=== PATIENT | female | born 1975 | race Caucasian/White ===

== ENCOUNTER → 2017-01-30 | Outpatient (CLI) | payer OTHER ==
[2017-01-30 11:59] VITALS: BP 121/74; PULSE 76; RESP 15; TEMP 98.3; BMI 48.9
[2017-01-30 13:13] LABS: HCT 35.8 % (34.0-46.0); HGB 11.5 gm/dL (11.4-16.0); Hypochromasia Slight; MCH 26.3 pg (25.0-35.0); MCHC 32.1 g/dL (31.0-37.0); MCV 82.1 fL (80.0-100.0); Platelet Count 296 k/uL (150-450); RBC 4.36 m/uL (3.80-5.40); RDW 15.2 % (11.5-15.5); WBC 8.6 k/uL (3.8-10.6)
[2017-01-30 13:53] LABS: ALT 32 U/L (9-52); AST 16 U/L (14-36); Albumin 3.8 g/dL (3.5-5.0); Alkaline Phosphatase 73 U/L (38-126); Anion Gap 8 mmol/L; Blood Urea Nitrogen 10 mg/dL (7-17); Calcium 9.3 mg/dL (8.4-10.2); Carbon Dioxide 25 mmol/L (22-30); Chloride 104 mmol/L (98-107); Cholesterol 206 mg/dL (<200); Glucose 89 mg/dL (74-99); HDL Cholesterol 32 mg/dL (40-60); LDL Cholesterol,Calculated 144 mg/dL (0-99); Potassium 4.6 mmol/L (3.5-5.1); Sodium 137 mmol/L (137-145); Total Bilirubin 0.5 mg/dL (0.2-1.3); Triglycerides 148 mg/dL (<150)
[2017-01-30 18:36] LABS: Iron Saturation 9.09 (12.00-45.00)
[2017-01-30 18:49] LABS: Folate, Serum 7.9 ng/mL
[2017-01-30 22:29] LABS: Hemoglobin A1C 5.8 % (4.0-6.0)
[2017-02-03 06:41] LABS: Anabasine Urine <2.0 ng/mL (<2.0)
--- NOTE | 2017-03-18 05:54 | P.HPBAR ---
Bariatric H&P - History & Physicial H&P Date: 01/30/17 History & Physicial: Visit/CC: RnY consult attended seminar 09/07/16 Patient initial contact: 09/07/2016 Initial weight: 115.666 kg Initial weight in pounds: 255.00 Height: 5 ft 0.5 in Initial BMI: 48.9 Last weight: Current weight: 115.666 kg Current weight in pounds: 255.00 Current BMI: 48.9 [place] body weight (based on NIH guidelines): 46.493 kg Excess body weight loss: 0.0% The patient is a 41 year-old F who presents for Bariatric Assessment. DATE OF SERVICE: 01/30/2017 REASON FOR CONSULTATION: Initial bariatric evaluation. HISTORY OF PRESENT ILLNESS: Sofia Harrington is a 41-year-old female who comes in with long-standing morbid obesity. She reports developing osteoarthritis of the bilateral hips, knees, lower back, hypertension including obstructive sleep apnea as a result of her obesity. She has undergone multiple diets in the past with a past weight loss of 30 pounds. In the last over 6 months, she has been doing medically supervised weight loss already losing 46 pounds with a combination Adipex and exercise. She is looking into the gastric bypass. No family history of stomach or esophageal cancer. No reports of food ALLERGIES. She denies lupus or multiple sclerosis in his family or himself. No reports of Crohn's disease or ulcer colitis. She has a strong family history of obesity. Now she presents for his initial assessment. At height of 5 feet 0.5 inches, her ideal body weight is 127 pounds. She comes in with 254 pounds. Her highest weight was 300 pounds in the last 6 months. Body mass index is down from 57.7 to 49.0. She is 127 pounds overweight. PAST MEDICAL HISTORY: 1. Morbid obesity. 2. Body mass index of 57.7. 3. Osteoarthritis of the knees. 4. Osteoarthritis of the hips. 5. Osteoarthritis of the lower back. 6. Obstructive sleep apnea. 7. Hypertensive heart disease. 8. Asthma. 9. Migraines. PAST SURGICAL HISTORY: 1. Cholecystectomy. 2. Appendectomy. 3. Upper endoscopy. 4. C-sections x3. HOME MEDICATIONS: 1. Excedrin. 2. Albuterol inhaler. ALLERGIES: Penicillin. SOCIAL HISTORY: No active tobacco use. FAMILY HISTORY: No family history of ulcerative colitis disease or Crohn's disease. Family history of morbid obesity. No lupus in the family. No reports of stomach or esophageal cancer. Family history of diabetes type 2. REVIEW OF ORGAN SYSTEMS: CONSTITUTIONAL: At height of 5 feet 0.5 inches, her ideal body weight is 127 pounds. She comes in with 254 pounds. Her highest weight was 300 pounds in the last 6 months. Has body mass index is down from 57.7 to 49.0. She is 127 pounds overweight. HEENT: Denies any active troubles with vision or hearing. No troubles with swallowing. ENDOCRINE: No diabetes. No hypothyroidism. CARDIOVASCULAR: No reports of palpitations or heart attacks or chest pain. RESPIRATORY: Has daytime somnolence. No asthma. GI: Denies any bright red blood per rectum. No diarrhea or constipation. MUSCULOSKELETAL: Has lower back pain and joint pain. Has osteoarthritis of the knees. NEURO: No headaches. No seizure disorders. PSYCH: No depression or suicidal ideation. RHEUMATOLOGIC: No lupus. No rheumatoid arthritis. HEMATOLOGIC: Denies any abnormal bleeding or bruising. No personal history of DVTs. SKIN: No rash. No skin cancer. PHYSICAL EXAM: VITAL SIGNS: Height 5 foot 0.5 inches, weight 254 pounds. BMI 49.0 Vital Signs Temp 98.3 F 01/30/17 11:30 Pulse 76 01/30/17 11:30 Resp 15 01/30/17 11:30 BP 121/74 01/30/17 11:30 Pulse Ox GENERAL: Well-developed in no acute distress. HEENT: No scleral icterus. Extraocular movements grossly intact. Hears conversational speech. No nasal drainage. NECK: Supple without lymphadenopathy. CHEST: Nonlabored respirations with equal bilateral excursions. CARDIOVASCULAR: Regular rate and regular rhythm. Distal 2+ pulses. ABDOMEN: Obese, soft, nontender, nondistended. MUSCULOSKELETAL: No clubbing, cyanosis. Gross strength 5/5 distal lower extremities. NEURO: No focal or lateralizing signs. Cranial nerves 2 through 12 grossly within normal limits. PSYCH: Appropriate affect. Alert and oriented to person, place and time. SKIN: Good skin turgor. Well perfused. ASSESSMENT: 1. Morbid obesity. 2. Body mass index of 57.7. 3. Osteoarthritis of the knees. 4. Osteoarthritis of the hips. 5. Osteoarthritis of the lower back. 6. Obstructive sleep apnea. 7. Hypertensive heart disease. 8. Asthma. 9. Migraines. 10. Hypercholesterolemia. 11. Vitamin D deficiency. PLAN: 1. Surgical options including a band, gastric bypass, sleeve gastrectomy were described in detail. Alternatives such as gastric balloon including duodenal switch were described. 2. The [place] bariatric surgical collaborative data and outcomes calculator were described with surgical options. 3. Recommend a bariatric metabolic panel to evaluate for micro- including macronutrient deficiencies. 4. For history of daytime somnolence, recommend evaluation and treatment for sleep apnea. 5. Dietary surveillance and counseling was reviewed. She is maintaining over 60 g protein daily. 6. She has completed upper endoscopy with findings of erosive esophagitis. 7. Recommend medical risk assessment. 8. Psych assessment per insurance guidelines. 9. Recommend 12-lead EKG with personal history of hypertensive heart disease. 10. She has done extremely well under medically supervised weight loss losing over 10% of her initial weight of 300 pounds. Percent excess weight loss is 26% . Thank you for this consultation. LABS: Laboratory Last Values WBC 8.6 k/uL (3.8-10.6) 01/30/17 12:31 RBC 4.36 m/uL (3.80-5.40) 01/30/17 12:31 Hgb 11.5 gm/dL (11.4-16.0) 01/30/17 12:31 Hct 35.8 % (34.0-46.0) 01/30/17 12:31 MCV 82.1 fL (80.0-100.0) 01/30/17 12:31 MCH 26.3 pg (25.0-35.0) 01/30/17 12:31 MCHC 32.1 g/dL (31.0-37.0) 01/30/17 12:31 RDW 15.2 % (11.5-15.5) 01/30/17 12:31 Plt Count 296 k/uL (150-450) 01/30/17 12:31 Hypochromasia Slight 01/30/17 12:31 Sodium 137 mmol/L (137-145) 01/30/17 12:31 Potassium 4.6 mmol/L (3.5-5.1) 01/30/17 12:31 Chloride 104 mmol/L (98-107) 01/30/17 12:31 Carbon Dioxide 25 mmol/L (22-30) 01/30/17 12:31 Anion Gap 8 mmol/L 01/30/17 12:31 BUN 10 mg/dL (7-17) 01/30/17 12:31 Creatinine 0.60 mg/dL (0.52-1.04) 01/30/17 12:31 Est GFR (MDRD) Af Amer >60 (>60 ml/min/1.73 sqM) 01/30/17 12:31 Est GFR (MDRD) Non-Af >60 (>60 ml/min/1.73 sqM) 01/30/17 12:31 Glucose 89 mg/dL (74-99) 01/30/17 12:[address] Glu mg/dL 120 01/30/17 12:31 Hemoglobin A1c 5.8 % (4.0-6.0) 01/30/17 12:31 Calcium 9.3 mg/dL (8.4-10.2) 01/30/17 12:31 Iron 31 ug/dL (50-170) L 01/30/17 12:31 TIBC 341 ug/dL (228-460) 01/30/17 12:31 Iron Saturation 9.09 (12.00-45.00) L 01/30/17 12:31 Ferritin 49.3 ng/mL (10.0-291.0) 01/30/17 12:31 Total Bilirubin 0.5 mg/dL (0.2-1.3) 01/30/17 12:31 AST 16 U/L (14-36) 01/30/17 12:31 ALT 32 U/L (9-52) 01/30/17 12:31 Alkaline Phosphatase 73 U/L (38-126) 01/30/17 12:31 Total Protein 7.0 g/dL (6.3-8.2) 01/30/17 12:31 Albumin 3.8 g/dL (3.5-5.0) 01/30/17 12:31 Triglycerides 148 mg/dL (<150) 01/30/17 12:31 Cholesterol 206 mg/dL (<200) H 01/30/17 12:31 LDL Cholesterol, Calc 144 mg/dL (0-99) H 01/30/17 12:31 HDL Cholesterol 32 mg/dL (40-60) L 01/30/17 12:31 Vitamin B1 55 ug/L (38-122) 01/30/17 12:31 Vitamin B12 471.0 pg/mL (200.0-944.0) 01/30/17 12:31 Vitamin D 25-Hydroxy 7.0 ng/mL (30.0-100.0) L 01/30/17 12:31 Folate 7.9 ng/mL 01/30/17 12:31 TSH 1.830 mIU/L (0.465-4.680) 01/30/17 12:31 Urine Cotinine <5.0 ng/mL (<5.0) 01/30/17 12:31 Urine Nicotine <2.0 ng/mL (<2.0) 01/30/17 12:31 Urine Anabasine <2.0 ng/mL (<2.0) 01/30/17 12:31 EKG EKG PERFORMED 01/30/17 12:31 Miscellaneous Test HEROIN 01/30/17 12:31 Misc Test Result See Comment 01/30/17 12:31 Cholesterol elevated. LDL elevated. HDL low. Vitamin D deficient. Past Medical History Past Medical History: Asthma, Sleep Apnea/CPAP/BIPAP Additional Past Medical History / Comment(s): Uses C-Pap, Poly Cystic Ovarian Syndrome, Migraine Headaches 4-5x/week History of Any Multi-Drug Resistant Organisms: None Reported Past Surgical History: Appendectomy, Section, Cholecystectomy Additional Past Surgical History / Comment(s): x3: 1999, 2002, 2009; Cholecystectomy 1999; Appendix 2002; R wrist Ganglion Cyst 2013; Bilateral Carpal Tunnel 2013; Past Anesthesia/Blood Transfusion Reactions: No Reported Reaction Past Psychological History: No Psychological Hx Reported Smoking Status: Never smoker Past Alcohol Use History: Rare Past Drug Use History: None Reported - Past Family History Father Family Medical History: Congestive Heart Failure (CHF), Coronary Artery Disease (CAD), Diabetes Mellitus Additional Family Medical History / Comment(s): at age 66 from heart failure Mother Family Medical History: Coronary Artery Disease (CAD), Diabetes Mellitus, Vascular Disorder Additional Family Medical History / Comment(s): Type II DM, Surgical - Exam Vital Signs Temp Pulse Resp BP 98.3 F 76 15 121/74 01/30/17 11:30 01/30/17 11:30 01/30/17 11:30 01/30/17 11:30 Results - Labs 01/30/17 12:31 01/30/17 12:31 Bariatric Checklist Checklist: Plan: Checklist: EGD: 1. Hiatal hernia: 2. H. Pylori: HgbA1c: Vitamin D: Smoking: Never smoker Primary care physician referral: Antoine RussellValle) Psychiatry clearance: Cardiology clearance: Sleep study: Diet journal: VTE risk score: VTE risk level: Rehab needs at discharge:
== END | disposition home or self-care (01) ==
LOC: BARWHC3 10:07
PROVIDERS: ATTEND Surgery Plastic and Reconstructive Surgery
DX: E66.01 Morbid (severe) obesity due to excess calories (principal); M17.0 Bilateral primary osteoarthritis of knee; M47.9 Spondylosis, unspecified; M16.0 Bilateral primary osteoarthritis of hip; G47.33 Obstructive sleep apnea (adult) (pediatric); I11.9 Hypertensive heart disease without heart failure; J45.909 Unspecified asthma, uncomplicated; G43.909 Migraine, unspecified, not intractable, without status migrainosus; E78.00 Pure hypercholesterolemia, unspecified; E55.9 Vitamin D deficiency, unspecified; E89.1 Postprocedural hypoinsulinemia; D50.8 Other iron deficiency anemias; E44.0 Moderate protein-calorie malnutrition; F10.10 Alcohol abuse, uncomplicated; Z90.49 Acquired absence of other specified parts of digestive tract; Z98.890 Other specified postprocedural states; Z79.51 Long term (current) use of inhaled steroids; Z79.899 Other long term (current) drug therapy; Z68.43 Body mass index [BMI] 50.0-59.9, adult; Z88.0 Allergy status to penicillin; Z99.89 Dependence on other enabling machines and devices
CPT/HCPCS: 84425; 80061; 80053; 82607; 82728; 82746; 83540; 83550; 84443; 85027; 82306; 83036; 93005; G0480; G0463; 80307; 80323; 80356; 99211

== ENCOUNTER → 2017-02-24 | Outpatient (CLI) | payer OTHER ==
[2017-02-24 16:09] VITALS: BMI 48.3
== END | disposition home or self-care (01) ==
LOC: BARWHC3 09:18
PROVIDERS: ATTEND Surgery Plastic and Reconstructive Surgery
DX: E66.01 Morbid (severe) obesity due to excess calories (principal); Z68.42 Body mass index [BMI] 45.0-49.9, adult
CPT/HCPCS: 97804

== ENCOUNTER → 2017-04-30 | Outpatient (CLI) | payer OTHER ==
[2017-04-30 17:40] VITALS: BP 107/74; PULSE 67; RESP 16; TEMP 98; BMI 41.8
--- NOTE | 2017-06-13 11:45 | P.PN ---
Subjective Progress Note Date: 04/30/17 DATE OF SERVICE: 04/30/2017 CHIEF COMPLAINT: Bariatric evaluation HISTORY OF PRESENT ILLNESS: Sofia Harrington is a 42-year-old female who initially came [facility] January 2017. She had been undergoing medical supervised weight loss for over 9+ months. Her highest weight was 304 pounds. At height of 5 feet 0.5 inches, her ideal body weight is 127 pounds. She comes in 250 pounds. She has lost 4 pounds in 3 months. Total weight loss due to medical supervised diet is 54 pounds. Percent excess weight loss is 30%. Body mass index is down from 58.5 to 48.2. She is 123 pounds overweight. She is seeking the gastric bypass. She has developed hypertension, osteoarthritis including sleep apnea as a result of her obesity. PAST MEDICAL HISTORY: 1. Morbid obesity. 2. Body mass index of 58.5 3. Osteoarthritis of the knees. 4. Osteoarthritis of the hips. 5. Osteoarthritis of the lower back. 6. Obstructive sleep apnea. 7. Hypertensive heart disease. 8. Asthma. 9. Migraines. PAST SURGICAL HISTORY: 1. Cholecystectomy. 2. Appendectomy. 3. Upper endoscopy. 4. C-sections x3. HOME MEDICATIONS: 1. Excedrin. 2. Albuterol inhaler. ALLERGIES: Penicillin. SOCIAL HISTORY: No active tobacco use. FAMILY HISTORY: No family history of ulcerative colitis disease or Crohn's disease. Family history of morbid obesity. No lupus in the family. No reports of stomach or esophageal cancer. Family history of diabetes type 2. REVIEW OF ORGAN SYSTEMS: CONSTITUTIONAL: Her highest weight was 304 pounds. At height of 5 feet 0.5 inches, her ideal body weight is 127 pounds. She comes in 250 pounds. She has lost 4 pounds in 3 months. Total weight loss due to medical supervised diet is 54 pounds. Percent excess weight loss is 30%. Body mass index is down from 58.5 to 48.2. She is 123 pounds overweight. HEENT: Denies any active troubles with vision or hearing. No troubles with swallowing. ENDOCRINE: No diabetes. No hypothyroidism. CARDIOVASCULAR: No reports of palpitations or heart attacks or chest pain. RESPIRATORY: Has daytime somnolence. No asthma. GI: Denies any bright red blood per rectum. No diarrhea or constipation. MUSCULOSKELETAL: Has lower back pain and joint pain. Has osteoarthritis of the knees. NEURO: No headaches. No seizure disorders. PSYCH: No depression or suicidal ideation. RHEUMATOLOGIC: No lupus. No rheumatoid arthritis. HEMATOLOGIC: Denies any abnormal bleeding or bruising. No personal history of DVTs. SKIN: No rash. No skin cancer. PHYSICAL EXAM: VITAL SIGNS: Height 5 foot 0.5 inches, weight 250 pounds. BMI 48.2 Vital Signs Temp 98.0 F 04/30/17 17:37 Pulse 67 04/30/17 17:37 Resp 16 04/30/17 17:37 BP 107/74 04/30/17 17:37 Pulse Ox GENERAL: Well-developed in no acute distress. HEENT: No scleral icterus. Extraocular movements grossly intact. Hears conversational speech. No nasal drainage. NECK: Supple without lymphadenopathy. CHEST: Nonlabored respirations with equal bilateral excursions. CARDIOVASCULAR: Regular rate and regular rhythm. Distal 2+ pulses. ABDOMEN: Obese, soft, nontender, nondistended. MUSCULOSKELETAL: No clubbing, cyanosis. Gross strength 5/5 distal lower extremities. NEURO: No focal or lateralizing signs. Cranial nerves 2 through 12 grossly within normal limits. PSYCH: Appropriate affect. Alert and oriented to person, place and time. SKIN: Good skin turgor. Well perfused. LABS: Laboratory Last Values WBC 8.6 k/uL (3.8-10.6) 01/30/17 12:31 RBC 4.36 m/uL (3.80-5.40) 01/30/17 12:31 Hgb 11.5 gm/dL (11.4-16.0) 01/30/17 12:31 Hct 35.8 % (34.0-46.0) 01/30/17 12:31 MCV 82.1 fL (80.0-100.0) 01/30/17 12:31 MCH 26.3 pg (25.0-35.0) 01/30/17 12:31 MCHC 32.1 g/dL (31.0-37.0) 01/30/17 12:31 RDW 15.2 % (11.5-15.5) 01/30/17 12:31 Plt Count 296 k/uL (150-450) 01/30/17 12:31 Hypochromasia Slight 01/30/17 12:31 Sodium 137 mmol/L (137-145) 01/30/17 12:31 Potassium 4.6 mmol/L (3.5-5.1) 01/30/17 12:31 Chloride 104 mmol/L (98-107) 01/30/17 12:31 Carbon Dioxide 25 mmol/L (22-30) 01/30/17 12:31 Anion Gap 8 mmol/L 01/30/17 12:31 BUN 10 mg/dL (7-17) 01/30/17 12:31 Creatinine 0.60 mg/dL (0.52-1.04) 01/30/17 12:31 Est GFR (MDRD) Af Amer >60 (>60 ml/min/1.73 sqM) 01/30/17 12:31 Est GFR (MDRD) Non-Af >60 (>60 ml/min/1.73 sqM) 01/30/17 12:31 Glucose 89 mg/dL (74-99) 01/30/17 12:[address] Glu mg/dL 120 01/30/17 12:31 Hemoglobin A1c 5.8 % (4.0-6.0) 01/30/17 12:31 Calcium 9.3 mg/dL (8.4-10.2) 01/30/17 12:31 Iron 31 ug/dL (50-170) L 01/30/17 12:31 TIBC 341 ug/dL (228-460) 01/30/17 12:31 Iron Saturation 9.09 (12.00-45.00) L 01/30/17 12:31 Ferritin 49.3 ng/mL (10.0-291.0) 01/30/17 12:31 Total Bilirubin 0.5 mg/dL (0.2-1.3) 01/30/17 12:31 AST 16 U/L (14-36) 01/30/17 12:31 ALT 32 U/L (9-52) 01/30/17 12:31 Alkaline Phosphatase 73 U/L (38-126) 01/30/17 12:31 Total Protein 7.0 g/dL (6.3-8.2) 01/30/17 12:31 Albumin 3.8 g/dL (3.5-5.0) 01/30/17 12:31 Triglycerides 148 mg/dL (<150) 01/30/17 12:31 Cholesterol 206 mg/dL (<200) H 01/30/17 12:31 LDL Cholesterol, Calc 144 mg/dL (0-99) H 01/30/17 12:31 HDL Cholesterol 32 mg/dL (40-60) L 01/30/17 12:31 Vitamin B1 55 ug/L (38-122) 01/30/17 12:31 Vitamin B12 471.0 pg/mL (200.0-944.0) 01/30/17 12:31 Vitamin D 25-Hydroxy 7.0 ng/mL (30.0-100.0) L 01/30/17 12:31 Folate 7.9 ng/mL 01/30/17 12:31 TSH 1.830 mIU/L (0.465-4.680) 01/30/17 12:31 Urine Cotinine <5.0 ng/mL (<5.0) 01/30/17 12:31 Urine Nicotine <2.0 ng/mL (<2.0) 01/30/17 12:31 Urine Anabasine <2.0 ng/mL (<2.0) 01/30/17 12:31 EKG EKG PERFORMED 01/30/17 12:31 Miscellaneous Test HEROIN 01/30/17 12:31 Misc Test Result See Comment 01/30/17 12:31 Iron is low. Cholesterol elevated. LDL elevated. HDL low Vitamin D low Hemoglobin A1c elevated ASSESSMENT: 1. Morbid obesity. 2. Body mass index of 58.5 3. Osteoarthritis of the knees. 4. Osteoarthritis of the hips. 5. Osteoarthritis of the lower back. 6. Obstructive sleep apnea. 7. Hypertensive heart disease, resolved. 8. Asthma. 9. Migraines. 10. Hypercholesterolemia. 11. Vitamin D deficiency. 12. Iron deficiency anemia 13. Hypercholesterolemia 14. Dyslipidemia 15. Prediabetes 16. Metabolic syndrome PLAN: 1. Bariatric options between a sleeve, band and a Guillermina-en-Y gastric bypass were reviewed in detail. She has elected for gastric bypass. Robotic assisted approach described. 2. The [place] [facility] Data was also reviewed with benefits and risks as described. 3. An 8 page second-generation bariatric consent form was reviewed in detail including potential of bleeding, infection, leaks, adequate weight loss, nutritional deficiencies which he demonstrated understanding of the risks. 4. A 2 week high-protein low caloric 800 kcal diet described to address hepatomegaly. 5. Preoperative labs including complete metabolic panel and CBC with type and screen recommended. 6. DVT prophylaxis per [place] [facility]. 7. Antibiotic prophylaxis. 8. Inpatient hospitalization anticipated for more than 2 nights. 9. All questions and concerns were addressed with the patient. 10. Recommended dietary classes. 11. Will need iron supplement. Objective - Vital Signs Vital signs: Vital Signs Temp 98.0 F 04/30/17 17:37 Pulse 67 04/30/17 17:37 Resp 16 04/30/17 17:37 BP 107/74 04/30/17 17:37 Pulse Ox
== END | disposition home or self-care (01) ==
LOC: BARWHC3 15:42
PROVIDERS: ATTEND Surgery Plastic and Reconstructive Surgery
DX: E88.81 Metabolic syndrome and other insulin resistance (principal); E66.01 Morbid (severe) obesity due to excess calories; E78.00 Pure hypercholesterolemia, unspecified; M17.0 Bilateral primary osteoarthritis of knee; M16.0 Bilateral primary osteoarthritis of hip; M47.9 Spondylosis, unspecified; G47.33 Obstructive sleep apnea (adult) (pediatric); J45.909 Unspecified asthma, uncomplicated; G43.909 Migraine, unspecified, not intractable, without status migrainosus; E55.9 Vitamin D deficiency, unspecified; D50.9 Iron deficiency anemia, unspecified; E78.5 Hyperlipidemia, unspecified; Z90.49 Acquired absence of other specified parts of digestive tract; Z98.890 Other specified postprocedural states; Z79.51 Long term (current) use of inhaled steroids; Z68.43 Body mass index [BMI] 50.0-59.9, adult; Z79.899 Other long term (current) drug therapy; Z88.0 Allergy status to penicillin
CPT/HCPCS: 99211

== ENCOUNTER → 2017-05-22 | Outpatient (CLI) | payer OTHER ==
[2017-05-22 13:58] LABS: Basophils % (A) 0 %; Eosinophils # (A) 0.2 k/uL (0-0.7); Eosinophils % (A) 2 %; HCT 37.5 % (34.0-46.0); HGB 12.1 gm/dL (11.4-16.0); Lymphocytes % (A) 40 %; MCHC 32.3 g/dL (31.0-37.0); MCV 83.6 fL (80.0-100.0); Mean Platelet Volume 8.6; Monocytes # (A) 0.2 k/uL (0-1.0); Monocytes % (A) 3 %; Neutrophils % (A) 52 %; Platelet Count 271 k/uL (150-450); RBC 4.48 m/uL (3.80-5.40); WBC 7.6 k/uL (3.8-10.6)
[2017-05-22 14:09] LABS: ALT 22 U/L (9-52); AST 18 U/L (14-36); Alkaline Phosphatase 66 U/L (38-126); Anion Gap 15 mmol/L; Blood Urea Nitrogen 9 mg/dL (7-17); Calcium 9.4 mg/dL (8.4-10.2); Carbon Dioxide 20 mmol/L (22-30); Chloride 106 mmol/L (98-107); Glucose 75 mg/dL (74-99); Potassium 4.4 mmol/L (3.5-5.1); Sodium 141 mmol/L (137-145); Total Bilirubin 0.6 mg/dL (0.2-1.3); Total Protein 7.3 g/dL (6.3-8.2)
== END | disposition home or self-care (01) ==
LOC: LABPAT 12:54
PROVIDERS: ATTEND Surgery Plastic and Reconstructive Surgery
DX: Z01.812 Encounter for preprocedural laboratory examination (principal); I10 Essential (primary) hypertension; E86.0 Dehydration
CPT/HCPCS: 36415; 80053; 85025

== ENCOUNTER 2017-05-26 05:32 | Inpatient (IN) | payer OTHER ==
[~2017-05-26 05:32] MED LIST: ACETAMINOPHEN IV (For NPO) 1,000 MG in EMPTY BAG 1 BAG IVPB ONE; CHLORHEXIDINE GLUCONATE 15 ML CUP MUCOUS MEM ONE; DEXAMETHASONE SOD PHOSPHATE 10 MG/ML 1 ML VIAL IV ONE; ENOXAPARIN 40 MG/0.4 ML SYRINGE SQ STA; MIDAZOLAM 2 MG/2 ML VIAL IV PRN; ONDANSETRON 4 MG/2 ML VIAL IVP ONE; PANTOPRAZOLE 40 MG/10 ML VIAL IV STA; SCOPOLAMINE 1.5MG/72HR PATCH TRANSDERM SCH; ceFAZolin IN SWFI 2 GM/20 ML SYRINGE IVP ONE; fentaNYL (PF) 50 MCG/ML 2 ML AMP IV PRN
[2017-05-26] MEDS: LACTATED RINGERS 1,000 ML IV SCH (06:35)
[2017-05-26] MEDS ORDERED: BUPIVACAINE (PF) 0.25% 30 ML VIAL SQ ONE (07:31)
--- NOTE | 2017-05-26 07:40 | P.GSHP ---
History of Present Illness H&P Date: 05/26/17 DATE OF SERVICE: 05/26/2017 CHIEF COMPLAINT: Morbid obesity HISTORY OF PRESENT ILLNESS: Sofia Harrington is a 42-year-old female who comes in with long-standing morbid obesity. She reports developing osteoarthritis of the bilateral hips, knees, lower back, hypertension including obstructive sleep apnea as a result of her obesity. She has undergone multiple diets in the past with a past weight loss of 30 pounds. In the last over 6 months, she has been doing medically supervised weight loss already losing 46 pounds with a combination Adipex and exercise. She is looking into the gastric bypass. No family history of stomach or esophageal cancer. No reports of food ALLERGIES. She denies lupus or multiple sclerosis in his family or himself. No reports of Crohn's disease or ulcer colitis. She has a strong family history of obesity. At height of 5 feet 0.5 inches, her ideal body weight is 127 pounds. She comes in with 254 pounds. Her highest weight was 300 pounds in the last 6 months. Body mass index is down from 57.7 to 45. PAST MEDICAL HISTORY: 1. Morbid obesity. 2. Body mass index of 57.7. 3. Osteoarthritis of the knees. 4. Osteoarthritis of the hips. 5. Osteoarthritis of the lower back. 6. Obstructive sleep apnea. 7. Hypertensive heart disease. 8. Asthma. 9. Migraines. PAST SURGICAL HISTORY: 1. Cholecystectomy. 2. Appendectomy. 3. Upper endoscopy. 4. C-sections x3. HOME MEDICATIONS: 1. Excedrin. 2. Albuterol inhaler. ALLERGIES: Penicillin. SOCIAL HISTORY: No active tobacco use. FAMILY HISTORY: No family history of ulcerative colitis disease or Crohn's disease. Family history of morbid obesity. No lupus in the family. No reports of stomach or esophageal cancer. Family history of diabetes type 2. REVIEW OF ORGAN SYSTEMS: CONSTITUTIONAL: At height of 5 feet 0.5 inches, her ideal body weight is 127 pounds. She comes in with 254 pounds. Her highest weight was 300 pounds in the last 6 months. Has body mass index is down from 57.7 to 49.0. She is 127 pounds overweight. She has lost another 15 pounds in 4 months. HEENT: Denies any active troubles with vision or hearing. No troubles with swallowing. ENDOCRINE: No diabetes. No hypothyroidism. CARDIOVASCULAR: No reports of palpitations or heart attacks or chest pain. RESPIRATORY: Has daytime somnolence. No asthma. GI: Denies any bright red blood per rectum. No diarrhea or constipation. MUSCULOSKELETAL: Has lower back pain and joint pain. Has osteoarthritis of the knees. NEURO: No headaches. No seizure disorders. PSYCH: No depression or suicidal ideation. RHEUMATOLOGIC: No lupus. No rheumatoid arthritis. HEMATOLOGIC: Denies any abnormal bleeding or bruising. No personal history of DVTs. SKIN: No rash. No skin cancer. PHYSICAL EXAM: VITAL SIGNS: Height 5 foot 0.5 inches, weight 239 pounds. BMI 49.0 GENERAL: Well-developed in no acute distress. HEENT: No scleral icterus. Extraocular movements grossly intact. Hears conversational speech. No nasal drainage. NECK: Supple without lymphadenopathy. CHEST: Nonlabored respirations with equal bilateral excursions. CARDIOVASCULAR: Regular rate and regular rhythm. Distal 2+ pulses. ABDOMEN: Obese, soft, nontender, nondistended. MUSCULOSKELETAL: No clubbing, cyanosis. Gross strength 5/5 distal lower extremities. NEURO: No focal or lateralizing signs. Cranial nerves 2 through 12 grossly within normal limits. PSYCH: Appropriate affect. Alert and oriented to person, place and time. SKIN: Good skin turgor. Well perfused. ASSESSMENT: 1. Morbid obesity. 2. Body mass index of 57.7, initial 3. Osteoarthritis of the knees. 4. Osteoarthritis of the hips. 5. Osteoarthritis of the lower back. 6. Obstructive sleep apnea. 7. Hypertensive heart disease. 8. Asthma. 9. Migraines. 10. Hypercholesterolemia. 11. Vitamin D deficiency. PLAN: 1. Surgical options including a band, gastric bypass, sleeve gastrectomy were described in detail. Alternatives such as gastric balloon including duodenal switch were described. She has selected for a gastric bypass. Robotic approach reviewed 2. DVT prophylaxis. 3. Antibiotic prophylaxis. 4. Inpatient hospitalization more than 2 nights. Past Medical History Past Medical History: Asthma, Sleep Apnea/CPAP/BIPAP Additional Past Medical History / Comment(s): Uses C-Pap, Poly Cystic Ovarian Syndrome, Migraine Headaches 4-5x/week, H-Pylori Positive per EGD specimen results performed in [place] by Dr. Komal Ceballos (02/24/17 Medications e- scribed to [facility] to treat) History of Any Multi-Drug Resistant Organisms: None Reported Past Surgical History: Appendectomy, Section, Cholecystectomy Additional Past Surgical History / Comment(s): x3: 1999, 2002, 2009; Cholecystectomy 1999; Appendix 2002; R wrist Ganglion Cyst 2013; Bilateral Carpal Tunnel 2013; Past Anesthesia/Blood Transfusion Reactions: No Reported Reaction Smoking Status: Never smoker - Past Family History Father Family Medical History: Congestive Heart Failure (CHF), Coronary Artery Disease (CAD), Diabetes Mellitus Additional Family Medical History / Comment(s): at age 66 from heart failure Mother Family Medical History: Coronary Artery Disease (CAD), Diabetes Mellitus, Vascular Disorder Additional Family Medical History / Comment(s): Type II DM, Medications and Allergies Home Medications Medication Instructions Recorded Confirmed Type Albuterol Inhaler [Ventolin Hfa 1 - 2 puff INHALATION Q6HR PRN 01/30/17 History Inhaler] Aspirin/Acetaminophen/Caffeine 1 each PO Q12HR PRN 01/30/17 05/26/17 History [Excedrin Migraine Caplet] Butalb/Acetaminophen/Caffeine 1 cap PO Q4HR PRN 01/30/17 05/26/17 History [Fioricet 50-300-40 mg Capsule] Omeprazole 40 mg PO DAILY #14 capsule. 02/24/17 05/26/17 Rx Allergies Allergy/AdvReac Type Severity Reaction Status Date / Time Penicillins Allergy Unknown Verified 05/26/17 06:07 Childhood hydromorphone [From Dilaudid] AdvReac Confusion Verified 05/26/17 06:07 Surgical - Exam Vital Signs Temp Pulse Resp BP Pulse Ox 98.2 F 88 16 114/72 99 05/26/17 06:04 05/26/17 06:04 05/26/17 06:04 05/26/17 06:04 05/26/17 06:04
[2017-05-26] MEDS ORDERED: GLYCOPYRROLATE 0.2 MG/ML 2 ML VIAL ONE (07:45)
[2017-05-26] MEDS ORDERED: ROCURONIUM BROMIDE 10 MG/ML 10 ML VIAL IV ONE (07:45)
[2017-05-26] MEDS ORDERED: MIDAZOLAM 2 MG/2 ML VIAL ONE (07:45)
[2017-05-26] MEDS ORDERED: fentaNYL (PF) 50 MCG/ML 2 ML AMP ONE (07:45)
[2017-05-26] MEDS ORDERED: SUCCINYLCHOLINE CHLORIDE 100 MG/5 ML SYR IV ONE (07:45)
[2017-05-26] MEDS ORDERED: LIDOCAINE 1% INJ 10MG/ML (20 ML MDV) ONE (07:45)
[2017-05-26] MEDS ORDERED: ROPIVACAINE 5 MG/ML 30 ML VIAL ONE (07:45)
[2017-05-26] MEDS ORDERED: NEOSTIGMINE 1 MG/ML 10 ML VIAL ONE (07:45)
[2017-05-26] MEDS ORDERED: PROPOFOL 10 MG/ML 20 ML VIAL IV ONE (07:45)
[2017-05-26] MEDS ORDERED: LACTATED RINGERS 1,000 ML IV ONE (09:36)
[2017-05-26] MEDS ORDERED: diphenhydrAMINE 50 MG/ML 1 ML VIAL IVP PRN (10:32)
[2017-05-26] MEDS ORDERED: NALOXONE 0.4 MG/ML 1 ML VIAL IV PRN (10:32)
--- NOTE | 2017-05-26 10:32 | P.OP ---
Date of Procedure: 05/26/17 Description of Procedure: SURGEON: ASHVIN MAYBERRY MD [place]: 1. NAVARRO WATSON 2. IVETTE OLMOS PREOPERATIVE DIAGNOSES: 1. Morbid obesity. 2. Body mass index of 57.7, initial 3. Osteoarthritis of the knees. 4. Osteoarthritis of the hips. 5. Osteoarthritis of the lower back. 6. Obstructive sleep apnea. 7. Hypertensive heart disease. 8. Asthma. 9. Migraines. 10. Hypercholesterolemia. 11. Vitamin D deficiency. POSTOPERATIVE DIAGNOSES: 1. Morbid obesity. 2. Body mass index of 57.7, initial 3. Osteoarthritis of the knees. 4. Osteoarthritis of the hips. 5. Osteoarthritis of the lower back. 6. Obstructive sleep apnea. 7. Hypertensive heart disease. 8. Asthma. 9. Migraines. 10. Hypercholesterolemia. 11. Vitamin D deficiency. OPERATION: 1. Robotic assisted da Melinda Xi laparoscopic Kirk-en-Y gastric bypass, 100 cm antecolic antegastric Kirk limb, with 25 mm EEA. 2. Intraoperative esophagogastrojejunoscopy. ANESTHESIA: GETA and local ESTIMATED BLOOD LOSS: 20 mL SPECIMENS REMOVED: None. COMPLICATIONS: NONE. INDICATIONS: Sofia Harrington is a 42-year-old female who comes in with long-standing morbid obesity. She reports developing osteoarthritis of the bilateral hips, knees, lower back, hypertension including obstructive sleep apnea as a result of her obesity. She has undergone multiple diets in the past with a past weight loss of 30 pounds. In the last over 6 months, she has been doing medically supervised weight loss already losing 46 pounds with a combination Adipex and exercise. She is looking into the gastric bypass. No family history of stomach or esophageal cancer. No reports of food ALLERGIES. She denies lupus or multiple sclerosis in his family or himself. No reports of Crohn's disease or ulcer colitis. She has a strong family history of obesity. At height of 5 feet 0.5 inches, her ideal body weight is 127 pounds. She comes in with 254 pounds. Her highest weight was 300 pounds in the last 6 months. Body mass index is down from 57.7 to 45. She now presents to undergo robotic assisted gastric bypass. A second-generation bariatric consent form was described in detail including the possibility of protein malnutrition, leaks, gastrojejunal stricture, venous thrombosis, need for further surgery for which she demonstrated understanding. Benefits and risks of the procedure were described at length. Informed consent was obtained. DESCRIPTION: The patient was brought into the operating room theater. She was placed supine. She had received Lovenox subcutaneously for DVT prophylaxis. Additionally she Peridex oral solution as an oral decontaminant was placed per anesthesia. After general induction, the abdomen was prepped and draped in standard sterile fashion. Ioban draping was placed along the abdomen. A robotic da Melinda Xi system was prepped and primed. The xiphoid to umbilicus was measured of 17.5 cm. Proposed port sites were marked with indelible marker along the anterior axillary line bilaterally, mid clavicular line bilaterally with each port marked 10 cm from each other. The assistant director of nursing port was marked along the right lateral lower abdominal wall. The robotic stapler port was marked for the right midclavicular line including along the left midclavicular line. A 5 mm 0 degrees laparoscopic trocar entry was performed along the left upper quadrant. The abdomen was insufflated to 15 mmHg pressure, which she tolerated well. Diagnostic laparoscopy demonstrated no injury to bowel, viscera, or mesentery. The liver surface was unremarkable. No large hiatal hernia was encountered. An 8 mm camera port was placed left lateral to the umbilicus at the epigastrium , 17 cm distal to the xiphoid. Next, 12-mm robot stapler port was placed along the right mid abdomen. An 12 mm port was exchanged along the left upper quadrant. An 8 mm port was placed on the left lateral abdominal wall under direct localization. Please note that the ports were placed 18 to 20 cm away from the target anatomy of the stomach. Care was taken to check that each robotic arm was safely away from collision with the bed or the patient. At the epigastrium, a medium sized Shanelle liver retractor was placed under direct visualization with the Iron Assistant Track Coach placed under the right shoulder of the patient. The patient was repositioned in reverse Trendelenburg position at 14-degress after lowering the bed. The robot was docked over the patient. Using grasper for arm 3, a grasper for arm 1, including vessel sealer for arm 4 , the robotic system was docked and primed as described. Instruments were interchanged by the assistant director of nursing including endoscissors, the needle yard truck driver, and stapler. I had sat at the console. Next, the transverse mesocolon was reflected into the upper abdomen preparing for the jejunojejunostomy portion of the case. The ligament of Treitz was identified and measured 60 cm antegrade and marked using 3-0 silk. The jejunum was divided at the 60 cm point using 45-mm white loads above the suture measurement. The biliopancreatic limb was held in place. The Kirk limb was measured 100 cm in an antegrade fashion to avoid tension along the proposed gastrojejunal anastomosis. At 100 cm along the anti-mesenteric border of the Kirk limb, a jejunojejunostomy was proposed whereby enterotomies were created along the biliopancreatic limb including the Kirk limb using a Bovie cautery. A stay suture of 3-0 silk was placed to align and create the anastomosis. The enterotomies along the anti-mesenteric borders were created followed by unidirectional fire from the patient's right side using 2 - 45 mm white load Smart technology robotic stapler. The jejunojejunostomy was found to be hemostatic. The enterotomy was closed after horizontal mattress stitch of 2- 0 silk used to elevate the enterotomy followed by closure with the robotic stapler white load. The jejunal limb was temporarily tacked along the left upper quadrant. Attention was now brought to the creation of the gastrojejunostomy. Along the lesser curvature of the stomach between the second and third veins, dissection was made along the retrogastric space to allow first firing of the robotic staple. Moderate posterior stomach were identified, hence increasing the complexity of her case. Blue loads of 6 - 45 mm staplers were used to divide the stomach to create the gastric pouch. The patient was then prepared for placement of a Orvil. The patient was Mallampati 2. A 25-mm Orvil was selected for placement by the nurse buzzsaw operator helper. The Orvil tubing was placed anterior to the staple line of the gastric pouch and brought out through the left inferior lateral port. I re-scrubbed into the case. The robotic arms were temporarily undocked. The Orvil was then carefully and successfully navigated with the help of the nurse buzzsaw operator helper into the gastric pouch. The sutures were identified and divided. The tubing was from the 25 mm anvil. As the Orvil had been placed, the blind jejunal limb was brought proximally into the upper abdomen. No torsion was found upon the Kirk limb. No tension was identified as the limb was brought along the upper abdomen. The blind jejunal limb was previously opened using endo -scissors with cautery. The 25-mm EEA stapler was brought through the left anterior lateral port site from the left side. The EEA stapler was brought through the open jejunal limb and its needle was deployed at the antimesenteric border where the anvil were mated for approximately 1 minute upon firing. The stapler was removed after irrigating the shaft of the instrument with warm normal saline. Donuts were found to be intact and on both sides. The da KupiKupon Xi robot arms were then re-docked. I sat at the console. The open jejunal limb defect was closed using 45 mm white loads after releasing any tension from the blind jejunal limb. Care was taken to avoid any long blind limb to avoid candycane syndrome. No reinforcement sutures were placed along the gastrojejunal anastomosis. The Blank and jejunojejunostomy mesenteric defects were obliterated by her intra- abdominal fat. I then went to the head of the bed to perform the esophagogastrojejunoscopy and a leak test. An Olympus gastroscope was passed along the posterior oropharynx which was unremarkable for any injury to the vocal cords. The scope was passed down to the proximal portion of the pouch, whereby blood clots was aspirated without active bleeding. Excellent visualization of the gastrojejunostomy anastomosis, including the Kirk limb was encountered with endoscopic image obtained. The anastomosis was found to be patent. The gastrointestinal tract was desufflated. No evidence of intraoperative leak was encountered as the gastric pouch and anastomosis were submerged under normal saline solution. The robot was then undocked. I then went back to the bedside of the patient, whereby with coordinated effort of the assistant director of nursing, irrigation was aspirated from the upper abdominal cavity. Tisseel was placed circumferentially over the anastomosis of the gastrojejunostomy. The fascial defect of the EEA stapler was closed using El Kim and 0 Vicryl. All instruments and pneumoperitoneum were evacuated from the abdominal cavity. The port correlating with the EEA stapler device was cleansed with normal saline solution and hydrogen peroxide. The rest of incisions were reapproximated using 4-0 Monocryl in an interrupted subcuticular fashion. Local anesthetic was infiltrated along the skin for postop analgesia. Dermabond was applied to the skin. OptiFoam dressing was placed along the EEA stapler site. At the end of the procedure, needle, sponge and instrument count had been verified correct by the surgical pathologist. She had tolerated the procedure well and was extubated and taken to the postanesthesia unit in stable condition. Intraoperative findings were described to the patient's family who were very pleased with the level of care. Total console time 77 minutes, Operative Findings: 1. Biliopancreatic limb 60 cm 2. Bypass performed using 100 cm kirk limb secondary to avoid increased tension at 150 cm. 3. Hebert defect and jejunojejunostomy defect obliterated by moderate intra- abdominal fat. 4. Leak test negative with gastrojejunal anastomosis patent and hemostatic. 5. Robotic staplers total of 13 combined blue and white 45 mm used - 6 used to gastric pouch 6. No reinforcement sutures were placed along the gastrojejunal anastomosis.
[2017-05-26] MEDS ORDERED: diphenhydrAMINE 50 MG/ML 1 ML VIAL IVP ONE (10:50)
[2017-05-26] MEDS: MEPERIDINE 50 MG/ML SYRINGE IVP ONE ×2 (10:50→10:59)
--- NOTE | 2017-05-26 11:35 | P.ONQ ---
Anesthesiology Proc Note - PNB - Peripheral Nerve Block Performed Transversus Abdominis Single Time Out Performed: Yes Procedure Start Time: : Procedure Stop Time: : Indication: Acute Post-Operative Pain, Requested by physician Sedation Type: Sedate with meaningful contact maintained Preparation: Sterile Prep Position: Supine Needle Size: 100mm (4") Needle Gauge: 21 Technique: Ultrasound Injectate: 0.5% Ropivacaine (see comment for volume) (ropi .5 % 15cc each side) Blood Aspirated: No Pain Paresthesia on Injection Noted: No Resistance on Injection: Normal Events: Uneventful and Well Tolerated
[2017-05-26] MEDS ORDERED: AMPICILLIN-SULBACTAM 3 GM in SODIUM CHLORIDE 0.9% 100 ML IVPB SCH (12:00)
[2017-05-26] MEDS: 0.9% NACL WITH KCL 20 MEQ/L 1,000 ML IV SCH ×3 (13:01→21:10)
[2017-05-26] MEDS: HYOSCYAMINE ORAL DROPS 1.875 MG/15 ML BOTTLE PO SCH ×2 (13:07→18:20)
[2017-05-26] MEDS: SIMETHICONE 40 MG/0.6 ML DROPS 2,000 MG/30 ML BOTTLE PO SCH ×2 (13:09→18:19)
[2017-05-26 14:49] VITALS: BMI 45.8
[2017-05-26] MEDS: ALBUTEROL NEBULIZED 2.5 MG/3 ML INHALATION SCH ×3 (14:49→19:27)
[2017-05-26] MEDS: MORPHINE SULFATE 4MG/4ML SYRG IVP PRN ×3 (15:01→21:10)
[2017-05-26] MEDS: ONDANSETRON 4 MG/2 ML VIAL IVP PRN ×2 (15:01→23:14)
[2017-05-26] MEDS: MAGNESIUM SULFATE-D5W PMX 1 GM in DEXTROSE/WATER 1 100ML.BAG IVPB SCH ×2 (16:49→18:08)
[2017-05-26] MEDS: ceFAZolin IN SWFI 2 GM/20 ML SYRINGE IVP SCH (18:08)
[2017-05-27] MEDS: SIMETHICONE 40 MG/0.6 ML DROPS 2,000 MG/30 ML BOTTLE PO SCH ×5 (00:20→23:47)
[2017-05-27] MEDS: ceFAZolin IN SWFI 2 GM/20 ML SYRINGE IVP SCH (00:21)
[2017-05-27] MEDS: HYOSCYAMINE ORAL DROPS 1.875 MG/15 ML BOTTLE PO SCH ×5 (00:21→23:46)
[2017-05-27] MEDS: MORPHINE SULFATE 4MG/4ML SYRG IVP PRN ×2 (00:21→04:16)
[2017-05-27] MEDS: LACTATED RINGERS 1,000 ML IV SCH (01:25)
[2017-05-27] MEDS: 0.9% NACL WITH KCL 20 MEQ/L 1,000 ML IV SCH (07:12)
[2017-05-27] MEDS: ALBUTEROL NEBULIZED 2.5 MG/3 ML INHALATION SCH ×4 (07:17→21:07)
[2017-05-27 07:59] LABS: Anion Gap 11 mmol/L; Blood Urea Nitrogen 9 mg/dL (7-17); Calcium 8.1 mg/dL (8.4-10.2); Carbon Dioxide 19 mmol/L (22-30); Chloride 110 mmol/L (98-107); Magnesium 2.1 mg/dL (1.6-2.3); Phosphorus 3.4 mg/dL (2.5-4.5); Potassium 4.8 mmol/L (3.5-5.1); Sodium 140 mmol/L (137-145)
[2017-05-27] MEDS ORDERED: 0.9% NACL WITH KCL 20 MEQ/L 1,000 ML IV SCH (08:00)
[2017-05-27 08:18] LABS: Basophils % (A) 0 %; Mean Platelet Volume 11.7
[2017-05-27] MEDS: HYDROcodone/APAP 15 ML SOLUTION PO PRN ×3 (08:38→21:22)
[2017-05-27 08:41] LABS: Eosinophils % (A) 0 %; HGB 10.2 gm/dL (11.4-16.0); Lymphocytes # (A) 2.2 k/uL (1.0-4.8); Lymphocytes % (A) 18 %; MCHC 31.8 g/dL (31.0-37.0); MCV 81.7 fL (80.0-100.0); Monocytes # (A) 0.5 k/uL (0-1.0); Monocytes % (A) 4 %; Neutrophils # (A) 9.1 k/uL (1.3-7.7); Neutrophils % (A) 76 %; Platelet Count 220 k/uL (150-450); RBC 3.92 m/uL (3.80-5.40); RDW 15.5 % (11.5-15.5)
[2017-05-27] MEDS: ENOXAPARIN 40 MG/0.4 ML SYRINGE SQ SCH (08:42)
[2017-05-27] MEDS: PANTOPRAZOLE 40 MG/10 ML VIAL IV SCH (11:04)
--- NOTE | 2017-05-27 11:56 | FL ---
Single contrast upper GI EXAMINATION TYPE: FL UGI DATE OF EXAM: 05/27/2017 11:52 AM CLINICAL HISTORY: Status post Guillermina-en-Y gastric bypass COMPARISON: NONE Dr. Grace. Fluoro time 00:59. isovue 370 50 mL. The patient ingested contrast without difficulty or delay. Noted are postsurgical changes of Guillermina-en -Y gastric bypass. There is no evidence for leak or obstruction. IMPRESSION: Post-surgical change of Guillermina-en-Y gastric bypass without evidence for obstruction or farheen k at this point in time.
[2017-05-27] MEDS ORDERED: TAMSULOSIN 0.4 MG CAP.ER.24H PO STA (13:24)
--- NOTE | 2017-05-27 14:13 | P.PN ---
<Natasha Blevins - Last Filed: 05/27/17 14:06> Subjective Progress Note Date: 05/27/17 42-year-old seen and examined at bedside this morning. Patient has been up ambulating in the [facility] [place] belching passing gas surgical incision sites dressings dry. Indwelling Mcdermott catheter removed at 8 AM. Nursing reports patient has no IV access at this time IV had infiltrated. Are waiting for anesthesia to attempt to restart peripheral IV. Currently tolerating a clear liquid bariatric diet. Labs were reviewed June 18 0.1 potassium 4.8 white count 12 Objective - Vital Signs Vital signs: Vital Signs Temp 98.6 F 05/27/17 07:00 Pulse 86 05/27/17 12:06 Resp 16 05/27/17 07:00 BP 99/62 05/27/17 07:00 Pulse Ox 95 05/27/17 07:20 Intake & Output 05/26/17 05/27/17 05/27/17 18:59 06:59 18:59 Intake Total 2930 Output Total 315 900 200 Balance 2615 -900 -200 Weight 108.635 kg 108.635 kg Intake: IV 2000 Intake, IV Titration 450 Amount 0.9% NaCl with KCl 20 Meq 450 /l 1,000 ml @ 150 mls/hr IV .[id number] [facility] Rx#: [id number] Oral 480 Output: Urine 295 900 200 Uretheral (Mcdermott) 200 Estimated Blood Loss 20 Other: Voiding Method Indwelling Catheter Indwelling Catheter - Exam Physical exam 42-year-old female resting in bed had been up ambulating in the chau appears in no acute distress Lungs adequate air movement bilaterally on room air no shortness of breath Heart S1-S2 audible regular Abdomen surgical incision sites dressings dry surgical tenderness appropriate no nausea no vomiting tolerating bariatric clear diet belching no stool Extremities no edema noted Venodyne's on bilaterally - Labs CBC & Chem 7: 05/27/17 07:02 05/27/17 07:02 Labs: Abnormal Lab Results - Last 24 Hours (Table) 05/27/17 05/27/17 Range/Units 07:02 07:02 WBC 12.0 H (3.8-10.6) k/uL Hgb 10.2 L (11.4-16.0) gm/dL Hct 32.0 L (34.0-46.0) % Neutrophils # 9.1 H (1.3-7.7) k/uL Chloride 110 H (98-107) mmol/L Carbon Dioxide 19 L (22-30) mmol/L Calcium 8.1 L (8.4-10.2) mg/dL Assessment and Plan Assessment: Impression Morbid obesity BMI 45 initially 57.7 due to excess calories Osteoarthritis involving hips knees and lower back Obstructive sleep apnea Asthma History of migraine Positive family history of obesity Vitamin D deficiency Hypercholesterolemia Postop May 26 robotic-da Melinda Xi laparoscopic Guillermina-en-Y gastric bypass done May 26 Mild hyperkalemia Plan continue postop bariatric care Bariatric clear diet Pain control Monitor post void residuals Flomax as ordered Remove potassium from IV Further recommendations pending Anticipate discharge soon The above impression and plan of care have been discussed and directed by signing physician. Natasha Blevins nurse practitioner acting as scribe for signing physician. <Komal Ceballos - Last Filed: 05/28/17 10:57> Objective - Vital Signs Vital signs: Vital Signs Temp 98.2 F 05/28/17 07:00 Pulse 80 05/28/17 07:49 Resp 16 05/28/17 07:00 BP 101/63 05/28/17 07:00 Pulse Ox 93 L 05/28/17 07:00 Intake & Output 05/27/17 05/28/17 05/28/17 18:59 06:59 18:59 Intake Total 800 600 Output Total 200 860 Balance 600 -260 Weight 108.635 kg Intake: IV 800 0.9% NaCl with KCl 20 Meq 800 /l 1,000 ml @ 100 mls/hr IV .Q10H [facility] Rx#: [id number] Intake, IV Titration 600 Amount Sodium Chloride 0.9% 1, 600 000 ml @ 75 mls/hr IV . [id number] [facility] Rx#:[id number] Output: Urine 200 860 Uretheral (Mcdermott) 200 Other: Voiding Method Indwelling Catheter # Voids 1 - Labs CBC & Chem 7: 05/27/17 07:02 05/27/17 07:02
[2017-05-27] MEDS: SODIUM CHLORIDE 0.9% 1,000 ML IV SCH ×2 (14:40→21:23)
[2017-05-27] MEDS ORDERED: SODIUM CHLORIDE 0.9% 2,000 ML IV ONE (16:19)
[2017-05-28] MEDS: HYDROcodone/APAP 15 ML SOLUTION PO PRN ×2 (05:20→14:29)
[2017-05-28] MEDS: SIMETHICONE 40 MG/0.6 ML DROPS 2,000 MG/30 ML BOTTLE PO SCH ×2 (05:21→13:05)
[2017-05-28] MEDS: HYOSCYAMINE ORAL DROPS 1.875 MG/15 ML BOTTLE PO SCH ×2 (05:21→13:05)
[2017-05-28] MEDS: LACTATED RINGERS 1,000 ML IV SCH (07:06)
[2017-05-28] MEDS: ALBUTEROL NEBULIZED 2.5 MG/3 ML INHALATION SCH ×2 (07:38→12:29)
[2017-05-28] MEDS ORDERED: BISACODYL 5 MG TABLET.DR PO PRN (08:00)
[2017-05-28] MEDS: ENOXAPARIN 40 MG/0.4 ML SYRINGE SQ SCH (09:05)
[2017-05-28] MEDS: PANTOPRAZOLE 40 MG/10 ML VIAL IV SCH (09:05)
[2017-05-28 11:42] LABS: HCT 27.5 % (34.0-46.0); Hypochromasia Slight; MCH 25.9 pg (25.0-35.0); MCHC 30.5 g/dL (31.0-37.0); Mean Platelet Volume 9.5; Platelet Count 186 k/uL (150-450); RBC 3.23 m/uL (3.80-5.40); RDW 15.6 % (11.5-15.5); WBC 8.4 k/uL (3.8-10.6)
[2017-05-28 11:43] LABS: HGB 8.4 gm/dL (11.4-16.0)
[2017-05-28 11:52] LABS: Anion Gap 8 mmol/L; Blood Urea Nitrogen 5 mg/dL (7-17); Calcium 7.7 mg/dL (8.4-10.2); Carbon Dioxide 23 mmol/L (22-30); Chloride 108 mmol/L (98-107); Glucose 80 mg/dL (74-99); Potassium 3.8 mmol/L (3.5-5.1); Sodium 139 mmol/L (137-145)
--- NOTE | 2017-05-28 11:59 | P.PN ---
Subjective Progress Note Date: 05/28/17 42-year-old female seen this morning sitting up in bed. Patient states has been up ambulating in the hallway. Reports urinating frequently with no difficulties. Denies nausea vomiting and tolerating bariatric clear diet. Denying dizziness lightheadedness. Patient reports having a dry mouth after receiving hyoscyamine drops Postop May 26 robotic-da Melinda Xi laparoscopic Guillermina-en-Y gastric bypass done May 26 Objective - Vital Signs Vital signs: Vital Signs Temp 98.2 F 05/28/17 07:00 Pulse 80 05/28/17 07:49 Resp 16 05/28/17 07:00 BP 101/63 05/28/17 07:00 Pulse Ox 93 L 05/28/17 07:00 Intake & Output 05/27/17 05/28/17 05/28/17 18:59 06:59 18:59 Intake Total 800 600 Output Total 200 860 Balance 600 -260 Weight 108.635 kg Intake: IV 800 0.9% NaCl with KCl 20 Meq 800 /l 1,000 ml @ 100 mls/hr IV .Q10H [facility] Rx#: [id number] Intake, IV Titration 600 Amount Sodium Chloride 0.9% 1, 600 000 ml @ 75 mls/hr IV . [id number] [facility] Rx#:[id number] Output: Urine 200 860 Uretheral (Mcdermott) 200 Other: Voiding Method Indwelling Catheter Toilet # Voids 1 - Exam Physical exam pleasant 42-year-old female sitting up in bed taking bariatric clear diet tolerating denies dizziness lightheadedness states has been up ambulating in the hallway Lungs adequate air movement bilaterally on room air sats are 95% no cough noted Heart S1-S2 audible regular Abdomen soft nondistended surgical incision site dressings dry no nausea no vomiting no stooling no difficulty in urinating tolerating the bariatric clear diet passing gas and belching no stool Extremities no edema noted - Labs CBC & Chem 7: 05/28/17 11:11 05/28/17 11:11 Labs: Abnormal Lab Results - Last 24 Hours (Table) 05/28/17 Range/Units 11:11 RBC 3.23 L (3.80-5.40) m/uL Hgb 8.4 L D (11.4-16.0) gm/dL Hct 27.5 L (34.0-46.0) % MCHC 30.5 L (31.0-37.0) g/dL RDW 15.6 H (11.5-15.5) % Assessment and Plan Assessment: Impression Morbid obesity BMI 45 initially 57.7 due to excess calories Osteoarthritis involving hips knees and lower back Obstructive sleep apnea Asthma History of migraine Positive family history of obesity Vitamin D deficiency Hypercholesterolemia Postop May 26 robotic-da Melinda Xi laparoscopic Guillermina-en-Y gastric bypass done May 26 Mild hyperkalemia Postop anemia suspect dilutional from IV fluid given for hydration Plan continue postop bariatric care Bariatric clear diet Pain control Further recommendations pending Anticipate discharge soon The above impression and plan of care have been discussed and directed by signing physician. Natasha Blevins nurse practitioner acting as scribe for signing physician.
--- NOTE | 2017-05-28 14:27 | CDI ---
Last Revision, January 2017 Documentation Clarification Form Date: 05/28/2017 02:24:00 PM From: Mary ParkMarinEVERETT, CCDS Admit Date: 05/26/2017 5:32:00 AM Patient Name: Sofia Harrington Visit Number: [id number] Discharge Date: ATTENTION: The Clinical Documentation Specialists (CDI) and [facility] Coding Staff appreciate your assistance in clarifying documentation. Please respond to the clarification below the line at the bottom and electronically sign. The CDI & [facility] Coding staff will review the response and follow-up if needed. Please note: Queries are made part of the Legal Health Record. If you have any questions, please contact the author of this message via ITS. Dr. Komal Ceballos: A diagnosis of anemia lacks specificity to accurately reflect your patients severity of condition and clarification is needed. Per the 05/28 PN: Postop anemia suspect dilutional from IV fluid given for hydration History/Risk Factors: Morbid Obesity. Clinical indicators: Elective admit for gastric bypass. Preop Hemoglobin: 10.2, Postop Hemoglobin: 8.4 Preop Hematocrit: 32.0, Postop Hematocrit: 27.5 Treatment: IV pain meds, IV antibiotics, IV fluid 100. H/H. In order to capture the severity of condition, please clarify the type of anemia and etiology if known: Acute blood loss anemia Acute on chronic blood loss anemia Iron deficiency anemia Drug induced anemia Unable to determine Other, please specify Please continue to document in your progress notes and discharge summary in order to capture severity of illness and risk of mortality. Include clinical findings that support your diagnosis. DILUTIONAL ANEMIA.....PATIENT HAD LARGE VOLUME FOR REHYDRATION! MTDD
[2017-05-28 14:57] VITALS: BP 113/69; PULSE 84; RESP 18; TEMP 98.9
--- NOTE | 2017-05-28 15:04 | P.DS ---
Providers Date of admission: 05/26/17 05:32 Expected date of discharge: 05/28/17 Attending physician: Komal Ceballos Primary care physician: [facility] Course: 42-year-old female presents to undergo an elective gastric bypass surgery for long-standing morbid obesity. Patient had developed osteoarthritis involving the bilateral hips knees and lower back. Also developed obstructive sleep apnea and hypertension due to her morbid obesity. strong family history of obesity. BMI down from 57.7 to 45 Patient underwent an elective. robotic-da Melinda Xi laparoscopic Guillermina-en-Y gastric bypass done May 26. There were no postop events. On the day of discharge tolerating a bariatric diet denied dizziness lightheadedness urinating no difficulty ambulating without difficulty passing gas no stool. Impression Morbid obesity BMI 45 initially 57.7 due to excess calories Osteoarthritis involving hips knees and lower back Obstructive sleep apnea Asthma History of migraine Positive family history of obesity Vitamin D deficiency Hypercholesterolemia Postop May 26 robotic-da Melinda Xi laparoscopic Guillermina-en-Y gastric bypass done May 26 Mild hyperkalemia Postop anemia suspect dilutional from IV fluid given for hydration no evidence of an acute blood loss anemia The above impression and plan of care have been discussed and directed by signing physician. Natasha Blevins nurse practitioner acting as scribe for signing physician. Plan - Discharge Summary Discharge Rx Participant: Yes New Discharge Prescriptions: New Bisacodyl [Dulcolax] 5 mg PO DAILY PRN #10 tablet.dr NEWBY Reason: Constipation HYDROcodone/APAP [[place] Elixir 7.5-325Mg/15Ml] 15 ml PO Q4HR PRN #480 ml PRN Reason: Pain Omeprazole 40 mg PO DAILY #90 capsule. Ondansetron Odt [Zofran Odt] 4 mg PO Q8HR PRN #9 tab PRN Reason: Nausea Simethicone 40 mg/0.6 ml Drops [Mylicon Drops] 40 mg PO PCHS PRN #30 ml PRN Reason: Gas Discontinued Butalb/Acetaminophen/Caffeine [Fioricet 50-300-40 mg Capsule] 1 cap PO Q4HR PRN PRN Reason: Migraine Headache Aspirin/Acetaminophen/Caffeine [Excedrin Migraine Caplet] 1 tab PO Q12HR PRN PRN Reason: Migraine Headache Omeprazole 40 mg PO DAILY #14 capsule.dr No Action Albuterol Inhaler [Ventolin Hfa Inhaler] 1 - 2 puff INHALATION RT-Q6H PRN PRN Reason: Bronchodilation Discharge Medication List Albuterol Inhaler [Ventolin Hfa Inhaler] 1 - 2 puff INHALATION RT-Q6H PRN [History] Bisacodyl [Dulcolax] 5 mg PO DAILY PRN #10 tablet. 05/28/17 [Rx] HYDROcodone/APAP [[place] Elixir 7.5-325Mg/15Ml] 15 ml PO Q4HR PRN #480 ml [Rx] Omeprazole 40 mg PO DAILY #90 capsule. 05/28/17 [Rx] Ondansetron Odt [Zofran Odt] 4 mg PO Q8HR PRN #9 tab 05/28/17 [Rx] Simethicone 40 mg/0.6 ml Drops [Mylicon Drops] 40 mg PO PCHS PRN #30 ml [Rx] Follow up Appointment(s)/Referral(s): [facility],. [NON-STAFF] - 05/30/17 10:00 am Patient Instructions/Handouts: Nutrition after Bariatric Surgery (DC), Guillermina-en -Y Gastric Bypass (DC) Activity/Diet/Wound Care/Special Instructions: No lifting over 4 pounds in 4 weeks. May shower. No bathtub soaks. Discharge Disposition: HOME SELF-CARE
[2017-05-28] MEDS: SODIUM CHLORIDE 0.9% 1,000 ML IV SCH (15:43)
== END 2017-05-28 16:15 | disposition home or self-care (01) | DRG 621 ==
LOC: 2ORMAIN 05:32 → 3SUR 10:24
PROVIDERS: ADMIT Surgery Plastic and Reconstructive Surgery; ATTEND Surgery Plastic and Reconstructive Surgery
PROC: 8E0W4CZ Robotic Assisted Procedure of Trunk Region, Percutaneous Endoscopic Approach (ICD-10-PCS; 2017-05-26)
PROC: 0DJ08ZZ Inspection of Upper Intestinal Tract, Via Natural or Artificial Opening Endoscopic (ICD-10-PCS; 2017-05-26)
PROC: 0D164ZA Bypass Stomach to Jejunum, Percutaneous Endoscopic Approach (ICD-10-PCS; principal; 2017-05-26 07:45)
DX: E66.01 Morbid (severe) obesity due to excess calories (principal); I11.9 Hypertensive heart disease without heart failure; E87.5 Hyperkalemia; D64.9 Anemia, unspecified; E55.9 Vitamin D deficiency, unspecified; E78.00 Pure hypercholesterolemia, unspecified; G43.909 Migraine, unspecified, not intractable, without status migrainosus; G47.33 Obstructive sleep apnea (adult) (pediatric); M16.0 Bilateral primary osteoarthritis of hip; M17.0 Bilateral primary osteoarthritis of knee; M47.9 Spondylosis, unspecified; J45.909 Unspecified asthma, uncomplicated; R68.2 Dry mouth, unspecified; E28.2 Polycystic ovarian syndrome; Z68.42 Body mass index [BMI] 45.0-49.9, adult; Z90.49 Acquired absence of other specified parts of digestive tract; Z83.49 Family history of other endocrine, nutritional and metabolic diseases; Z79.899 Other long term (current) drug therapy; Z88.0 Allergy status to penicillin; Z83.3 Family history of diabetes mellitus; Z90.89 Acquired absence of other organs; Z82.49 Family history of ischemic heart disease and other diseases of the circulatory system; Z79.82 Long term (current) use of aspirin; Z88.6 Allergy status to analgesic agent
CPT/HCPCS: 74240; 80048; 80051; 81025; 82310; 82565; 83735; 84100; 84520; 85025; 85027; 86850; 86900; 86901; 94640

== ENCOUNTER → 2017-05-30 | Outpatient (CLI) | payer OTHER ==
[~2017-05-30] MED LIST changes: -ACETAMINOPHEN IV (For NPO) 1,000 MG in EMPTY BAG 1 BAG IVPB ONE; -CHLORHEXIDINE GLUCONATE 15 ML CUP MUCOUS MEM ONE; -DEXAMETHASONE SOD PHOSPHATE 10 MG/ML 1 ML VIAL IV ONE; -ENOXAPARIN 40 MG/0.4 ML SYRINGE SQ STA; -MIDAZOLAM 2 MG/2 ML VIAL IV PRN; -ONDANSETRON 4 MG/2 ML VIAL IVP ONE; -PANTOPRAZOLE 40 MG/10 ML VIAL IV STA; -SCOPOLAMINE 1.5MG/72HR PATCH TRANSDERM SCH; +SUMAtriptan SUCCINATE 6 MG/0.5 ML VIAL SQ STA; -ceFAZolin IN SWFI 2 GM/20 ML SYRINGE IVP ONE; -fentaNYL (PF) 50 MCG/ML 2 ML AMP IV PRN
[2017-05-30 11:00] VITALS: PULSE 73; RESP 16
[2017-05-30 11:04] LABS: Basophils % (A) 0 %; Eosinophils # (A) 0.3 k/uL (0-0.7); Eosinophils % (A) 4 %; HCT 31.1 % (34.0-46.0); HGB 10.1 gm/dL (11.4-16.0); Lymphocytes # (A) 1.5 k/uL (1.0-4.8); Lymphocytes % (A) 24 %; MCH 27.2 pg (25.0-35.0); MCHC 32.6 g/dL (31.0-37.0); MCV 83.4 fL (80.0-100.0); Monocytes # (A) 0.2 k/uL (0-1.0); Monocytes % (A) 3 %; Neutrophils # (A) 4.3 k/uL (1.3-7.7); Neutrophils % (A) 68 %; Platelet Count 237 k/uL (150-450); RBC 3.73 m/uL (3.80-5.40); RDW 15.4 % (11.5-15.5); WBC 6.3 k/uL (3.8-10.6)
[2017-05-30 11:28] VITALS: BP 129/84; TEMP 97.8; BMI 48.0
--- NOTE | 2017-06-14 19:13 | P.PN ---
Subjective Progress Note Date: 05/30/17 DATE OF SERVICE: 05/30/2017 CHIEF COMPLAINT: Follow up gastric bypass HISTORY OF PRESENT ILLNESS: Sofia Harrington is a 42-year-old female who is status post gastric bypass for overnight. She is postoperative day 4. He reports of migraines. She also reports moderate water weight gain. No nausea or vomiting. No fevers or chills. Pain is controlled. Her highest weight was 304 pounds. At height of 5 feet 0.5 inches, her ideal body weight is 127 pounds. She comes in 245 pounds. She has lost 5 pounds in 1 month. Lifetime weight is 59 pounds. Percent excess weight loss is 33%. Body mass index is down from 59.5 to 48.0. She is 118 pounds overweight. PHYSICAL EXAM: VITAL SIGNS: Height 5 foot 0.5 inches, weight 245 pounds. BMI 48.0 Vital Signs Temp 97.8 F 05/30/17 11:22 Pulse 73 05/30/17 11:22 Resp 16 05/30/17 10:55 BP 129/84 05/30/17 11:22 Pulse Ox GENERAL: Well-developed in no acute distress. HEENT: No scleral icterus. Extraocular movements grossly intact. Hears conversational speech. No nasal drainage. NECK: Supple without lymphadenopathy. CHEST: Nonlabored respirations with equal bilateral excursions. CARDIOVASCULAR: Regular rate and regular rhythm. Distal 2+ pulses. ABDOMEN: Obese, soft. Minimal left upper quadrant tenderness at incisions. No signs of infection. Dressing removed. MUSCULOSKELETAL: No clubbing, cyanosis. Gross strength 5/5 distal lower extremities. NEURO: No focal or lateralizing signs. Cranial nerves 2 through 12 grossly within normal limits. PSYCH: Appropriate affect. Alert and oriented to person, place and time. SKIN: Good skin turgor. Well perfused. ASSESSMENT: 1. Morbid obesity. 2. Body mass index of 59.5 to 48.0. 3. Osteoarthritis of the knees. 4. Osteoarthritis of the hips. 5. Osteoarthritis of the lower back. 6. Obstructive sleep apnea. 7. Hypertensive heart disease, resolved. 8. Asthma. 9. Migraines. 10. Hypercholesterolemia. 11. Vitamin D deficiency. 12. Iron deficiency anemia 13. Hypercholesterolemia 14. Dyslipidemia 15. Prediabetes 16. Metabolic syndrome 17. Status post gastric bypass PLAN: 1. Imitrex prescribed for migraines. 2. IV fluid hydration 3. Follow up in [place], 2 weeks. Objective - Labs CBC & Chem 7: 05/30/17 10:54
== END | disposition home or self-care (01) ==
LOC: BARWHC3 09:23
PROVIDERS: ATTEND Surgery Plastic and Reconstructive Surgery
DX: Z48.815 Encounter for surgical aftercare following surgery on the digestive system (principal); M17.0 Bilateral primary osteoarthritis of knee; M16.0 Bilateral primary osteoarthritis of hip; G47.33 Obstructive sleep apnea (adult) (pediatric); J45.909 Unspecified asthma, uncomplicated; G43.909 Migraine, unspecified, not intractable, without status migrainosus; E78.00 Pure hypercholesterolemia, unspecified; E55.9 Vitamin D deficiency, unspecified; D50.9 Iron deficiency anemia, unspecified; R73.03 Prediabetes; E88.81 Metabolic syndrome and other insulin resistance; Z98.84 Bariatric surgery status
CPT/HCPCS: 85025; 96372; 36415; J3030; G0463; 99211

== ENCOUNTER → 2017-06-16 | Outpatient (CLI) | payer OTHER ==
[2017-06-16 10:18] VITALS: PULSE 72; RESP 15; TEMP 98.3
[2017-06-16 10:36] VITALS: BP 115/56; BMI 38.4
--- NOTE | 2017-06-16 10:42 | P.PN ---
Subjective Progress Note Date: 06/16/17 DATE OF SERVICE: 06/16/2017 CHIEF COMPLAINT: Follow up gastric bypass HISTORY OF PRESENT ILLNESS: Sofia Harrington is a 42-year-old female who is status post gastric bypass for 05/26/2017. She is 3 weeks post-op. She comes in today complaining of left upper quadrant swelling consistent with seroma. No fevers or chills. She reports clear fluid drainage earlier in the week which now resolved. She does report increased swelling of the left upper abdomen. Her highest weight was 304 pounds. At height of 5 feet 0.5 inches, her ideal body weight is 127 pounds. She comes in 231.8 pounds today from 245 pounds 2 weeks ago. She has lost 13 pounds in 2 weeks. Lifetime weight loss is 72 pounds. Percent excess weight loss is 41 %. Body mass index is down from 59.5 to 44.6. She is 105 pounds overweight. PHYSICAL EXAM: VITAL SIGNS: Height 5 foot 0.5 inches, weight 232 pounds. BMI 44.6 Vital Signs Temp 98.3 F 06/16/17 09:54 Pulse 72 06/16/17 09:54 Resp 15 06/16/17 09:54 BP 115/68 06/16/17 09:54 Pulse Ox Intake & Output 06/15/17 06/16/17 06/16/17 18:59 06:59 18:59 Weight 104.78 kg GENERAL: Well-developed in no acute distress. HEENT: No scleral icterus. Extraocular movements grossly intact. Hears conversational speech. No nasal drainage. NECK: Supple without lymphadenopathy. CHEST: Nonlabored respirations with equal bilateral excursions. CARDIOVASCULAR: Regular rate and regular rhythm. Distal 2+ pulses. ABDOMEN: Obese, soft. Left upper quadrant with palpable fluid collection consistent with seroma. No erythema or signs of infection. MUSCULOSKELETAL: No clubbing, cyanosis. Gross strength 5/5 distal lower extremities. NEURO: No focal or lateralizing signs. Cranial nerves 2 through 12 grossly within normal limits. PSYCH: Appropriate affect. Alert and oriented to person, place and time. SKIN: Good skin turgor. Well perfused. ASSESSMENT: 1. Morbid obesity. 2. Body mass index of 59.5 to 44.6 3. Osteoarthritis of the knees. 4. Osteoarthritis of the hips. 5. Osteoarthritis of the lower back. 6. Obstructive sleep apnea. 7. Hypertensive heart disease, resolved. 8. Asthma. 9. Migraines. 10. Hypercholesterolemia. 11. Vitamin D deficiency. 12. Iron deficiency anemia 13. Hypercholesterolemia 14. Dyslipidemia 15. Prediabetes 16. Metabolic syndrome 17. Status post gastric bypass 18. Abdominal wall seroma PLAN: 1. Recommend abdominal binder support. 2. Recommend drainage of the abdominal wall seroma. Ultrasound-guided approach versus bedside approach also described. 3. Follow-up bariatric center in 2 weeks. Objective - Vital Signs Vital signs: Vital Signs Temp 98.3 F 06/16/17 09:54 Pulse 72 06/16/17 09:54 Resp 15 06/16/17 09:54 BP 115/68 06/16/17 09:54 Pulse Ox Intake & Output 06/15/17 06/16/17 06/16/17 18:59 06:59 18:59 Weight 104.78 kg
== END | disposition home or self-care (01) ==
LOC: BARWHC3 09:35
PROVIDERS: ATTEND Surgery Plastic and Reconstructive Surgery
DX: Z09 Encounter for follow-up examination after completed treatment for conditions other than malignant neoplasm (principal); R19.02 Left upper quadrant abdominal swelling, mass and lump; R63.4 Abnormal weight loss; E66.01 Morbid (severe) obesity due to excess calories; M17.0 Bilateral primary osteoarthritis of knee; M16.0 Bilateral primary osteoarthritis of hip; M47.9 Spondylosis, unspecified; G47.33 Obstructive sleep apnea (adult) (pediatric); J45.909 Unspecified asthma, uncomplicated; G43.909 Migraine, unspecified, not intractable, without status migrainosus; E78.00 Pure hypercholesterolemia, unspecified; E55.9 Vitamin D deficiency, unspecified; D50.9 Iron deficiency anemia, unspecified; E78.5 Hyperlipidemia, unspecified; R73.03 Prediabetes; L76.34 Postprocedural seroma of skin and subcutaneous tissue following other procedure; Z68.41 Body mass index [BMI] 40.0-44.9, adult; Z98.84 Bariatric surgery status
CPT/HCPCS: 99213

== ENCOUNTER → 2017-06-16 | Outpatient (CLI) | payer OTHER ==
--- NOTE | 2017-06-16 13:06 | US ---
EXAMINATION TYPE: US abdomen limited DATE OF EXAM: 06/16/2017 COMPARISON: NONE CLINICAL HISTORY: POSSIBLE SEROMA R10. Patient had gastric bypass 3 weeks earlier. She did no have any drains in. She did have leakage from the incision where she is currently having pain, she came to the ER and they closed the incision. There is an irregular shaped hypoechoic area 2.7 x 0.7 x 2.0cm. IMPRESSION: Avascular hypoechoic irregular probable fluid collection just deep to the surgical scar site in the left lower quadrant favored to represent a postoperative seroma and measuring 2.7 x 0.7 x 2.0 cm. No hypervascularity to suggest abscess at this time.
== END | disposition home or self-care (01) ==
LOC: RADUSWWP 12:21
PROVIDERS: ATTEND Surgery Plastic and Reconstructive Surgery
DX: L76.34 Postprocedural seroma of skin and subcutaneous tissue following other procedure (principal)
CPT/HCPCS: 76705

== ENCOUNTER 2017-06-18 13:02 | Day surgery (SDC) | payer OTHER ==
[2017-06-18 13:33] VITALS: RESP 18
[2017-06-18 14:45] VITALS: BP 117/70; PULSE 77; TEMP 97.9
--- NOTE | 2017-06-18 15:22 | US ---
ULTRASOUND GUIDED FNA SUBCUTANEOUS SEROMA: CLINICAL HISTORY: Small collection requested for aspiration. Drainage catheter are not requested. FINDINGS: The procedure was explained to the patient. The risks, complications, benefits and alternatives were discussed and any questions were answered. Informed consent was obtained. Patient was placed supin e on the ultrasound table and prepped and draped in the usual sterile fashion. Utilizing a 25 gauge needle, single pass was made into the collection there is aspiration approximately 4 to 5 cc of fluid . Sample sent to pathology for analysis. Patient was stable throughout the procedure. Pathology is p ending. All elements of maximal barrier and sterile technique were utilized. IMPRESSION: 1. Successful ultrasound guided aspiration subcutaneous fluid collection with no residual collection post aspiration.
== END 2017-06-18 14:35 | disposition home or self-care (01) ==
LOC: RADPROMAIN 13:02
PROVIDERS: ATTEND Surgery Plastic and Reconstructive Surgery
DX: S30.1XXA Contusion of abdominal wall, initial encounter (principal)
CPT/HCPCS: 10160; 87070; 87205

== ENCOUNTER → 2017-06-25 | Outpatient (CLI) | payer OTHER ==
[2017-06-25 15:14] VITALS: BP 117/54; PULSE 59; RESP 14; TEMP 98.7; BMI 44.4
--- NOTE | 2017-06-25 16:12 | P.PN ---
Subjective Progress Note Date: 06/25/17 DATE OF SERVICE: 06/25/2017 CHIEF COMPLAINT: Follow up gastric bypass HISTORY OF PRESENT ILLNESS: Sofia Harrington is a 42-year-old female who is status post gastric bypass for 05/26/2017. She was last seen 06/16/2017. Her abdominal pain is improved. Eager to start exercising. No dysphagia. No nausea or vomiting. Her highest weight was 304 pounds. At height of 5 feet 0.5 inches, her ideal body weight is 127 pounds. She comes in 231 pounds from 232 pounds. She has lost 1 pounds in 1 week. Lifetime weight loss is 73 pounds. Percent excess weight loss is 41 %. Body mass index is down from 59.5 to 44.4. PHYSICAL EXAM: VITAL SIGNS: Height 5 foot 0.5 inches, weight 232 pounds. BMI 44.6 Vital Signs Temp 98.7 F 06/25/17 14:55 Pulse 59 L 06/25/17 14:55 Resp 14 06/25/17 14:55 BP 117/54 06/25/17 14:55 Pulse Ox Intake & Output 06/24/17 06/25/17 06/25/17 18:59 06:59 18:59 Weight 104.78 kg GENERAL: Well-developed in no acute distress. HEENT: No scleral icterus. Extraocular movements grossly intact. Hears conversational speech. No nasal drainage. NECK: Supple without lymphadenopathy. CHEST: Nonlabored respirations with equal bilateral excursions. CARDIOVASCULAR: Regular rate and regular rhythm. Distal 2+ pulses. ABDOMEN: Obese, soft. Resolved left upper quadrant seroma. No erythema or signs of infection. MUSCULOSKELETAL: No clubbing, cyanosis. Gross strength 5/5 distal lower extremities. NEURO: No focal or lateralizing signs. Cranial nerves 2 through 12 grossly within normal limits. PSYCH: Appropriate affect. Alert and oriented to person, place and time. SKIN: Good skin turgor. Well perfused. ASSESSMENT: 1. Morbid obesity. 2. Body mass index of 59.5 to 44.6 3. Osteoarthritis of the knees. 4. Osteoarthritis of the hips. 5. Osteoarthritis of the lower back. 6. Obstructive sleep apnea. 7. Hypertensive heart disease, resolved. 8. Asthma. 9. Migraines. 10. Hypercholesterolemia. 11. Vitamin D deficiency. 12. Iron deficiency anemia 13. Hypercholesterolemia 14. Dyslipidemia 15. Prediabetes 16. Metabolic syndrome 17. Status post gastric bypass 18. Abdominal wall seroma PLAN: 1. Get bariatric labs. 2. She is feeling better. 3. Recommend to enjoy the sun. 4. May exercise. 5. She may return to work on June 30. Objective - Vital Signs Vital signs: Vital Signs Temp 98.7 F 06/25/17 14:55 Pulse 59 L 06/25/17 14:55 Resp 14 06/25/17 14:55 BP 117/54 06/25/17 14:55 Pulse Ox Intake & Output 06/24/17 06/25/17 06/25/17 18:59 06:59 18:59 Weight 104.78 kg
--- NOTE | 2017-06-25 16:15 | P.PN ---
Progress Note - Text Progress Note Date: 06/25/17 To whom it may concern: Sofia Harrington is under my surgical care. She may return to work with lifting restrictions of 10 pounds on June 30. Her lifting restrictions will continue through July 21. Please feel free to call us if questions. Regards, Komal Ceballos MD, FACS
[2017-06-25 17:44] LABS: HCT 34.1 % (34.0-46.0); HGB 11.1 gm/dL (11.4-16.0); MCH 27.1 pg (25.0-35.0); MCHC 32.5 g/dL (31.0-37.0); MCV 83.4 fL (80.0-100.0); Mean Platelet Volume 9.6; Platelet Count 221 k/uL (150-450); RBC 4.09 m/uL (3.80-5.40); RDW 15.2 % (11.5-15.5)
[2017-06-25 17:49] LABS: Partial Thromboplastin Time 23.9 sec (22.0-30.0); Prothrombin Time 10.2 sec (9.0-12.0)
[2017-06-25 17:57] LABS: ALT 18 U/L (9-52); AST 19 U/L (14-36); Albumin 3.9 g/dL (3.5-5.0); Alkaline Phosphatase 66 U/L (38-126); Anion Gap 15 mmol/L; Blood Urea Nitrogen 9 mg/dL (7-17); Calcium 9.2 mg/dL (8.4-10.2); Carbon Dioxide 21 mmol/L (22-30); Chloride 106 mmol/L (98-107); Cholesterol 179 mg/dL (<200); Glucose 74 mg/dL (74-99); HDL Cholesterol 33 mg/dL (40-60); LDL Cholesterol,Calculated 122 mg/dL (0-99); Magnesium 1.9 mg/dL (1.6-2.3); Phosphorus 3.8 mg/dL (2.5-4.5); Potassium 4.1 mmol/L (3.5-5.1); Sodium 142 mmol/L (137-145); Total Bilirubin 0.6 mg/dL (0.2-1.3); Total Protein 6.6 g/dL (6.3-8.2); Triglycerides 120 mg/dL (<150)
[2017-06-26 01:32] LABS: Parathyroid Hormone Intact 40.5 pg/mL (14.0-72.0)
[2017-06-26 01:54] LABS: Folate, Serum 11.3 ng/mL; Iron Saturation 8.62 (12.00-45.00); Vitamin D 25 Hydroxy 11.5 ng/mL (30.0-100.0)
[2017-06-26 03:12] LABS: Hemoglobin A1C 5.1 % (4.0-6.0)
== END | disposition home or self-care (01) ==
LOC: BARWHC3 14:33
PROVIDERS: ATTEND Surgery Plastic and Reconstructive Surgery
DX: Z09 Encounter for follow-up examination after completed treatment for conditions other than malignant neoplasm (principal); E88.81 Metabolic syndrome and other insulin resistance; E66.01 Morbid (severe) obesity due to excess calories; L76.34 Postprocedural seroma of skin and subcutaneous tissue following other procedure; M17.0 Bilateral primary osteoarthritis of knee; M16.0 Bilateral primary osteoarthritis of hip; M47.9 Spondylosis, unspecified; G47.33 Obstructive sleep apnea (adult) (pediatric); J45.909 Unspecified asthma, uncomplicated; G43.909 Migraine, unspecified, not intractable, without status migrainosus; E78.00 Pure hypercholesterolemia, unspecified; E55.9 Vitamin D deficiency, unspecified; D50.9 Iron deficiency anemia, unspecified; E78.5 Hyperlipidemia, unspecified; E21.1 Secondary hyperparathyroidism, not elsewhere classified; K90.9 Intestinal malabsorption, unspecified; K74.1 Hepatic sclerosis; N19 Unspecified kidney failure; K50.90 Crohn's disease, unspecified, without complications; Z68.41 Body mass index [BMI] 40.0-44.9, adult; Z98.84 Bariatric surgery status
CPT/HCPCS: 84255; 84134; 84425; 80061; 80053; 82607; 82728; 82525; 82746; 83540; 83550; 83735; 84100; 84443; 84590; 84630; 85027; 85610; 85730; 82306; 83970; 83036; 97803; 36415; G0463; 99211

== ENCOUNTER → 2018-01-14 | Outpatient (CLI) | payer OTHER ==
[2018-01-14 13:56] LABS: HCT 39.5 % (34.0-46.0); HGB 12.9 gm/dL (11.4-16.0); MCHC 32.7 g/dL (31.0-37.0); MCV 94.6 fL (80.0-100.0); Mean Platelet Volume 9.1; Platelet Count 230 k/uL (150-450); RBC 4.18 m/uL (3.80-5.40); RDW 12.7 % (11.5-15.5); WBC 6.8 k/uL (3.8-10.6)
[2018-01-14 14:02] LABS: Partial Thromboplastin Time 23.2 sec (22.0-30.0); Prothrombin Time 9.8 sec (9.0-12.0)
[2018-01-14 18:19] LABS: Iron Saturation 24.74 (12.00-45.00)
[2018-01-14 18:28] LABS: Vitamin D 25 Hydroxy 16.4 ng/mL (30.0-100.0)
[2018-01-14 18:30] LABS: Folate, Serum 5.2 ng/mL
[2018-01-14 18:41] LABS: Albumin 4.1 g/dL (3.80-4.90); Albumin/Globulin Ratio 2.16 (1.20-2.10); Anion Gap 5.2 mmol/L (4.00-12.00); Carbon Dioxide 27.8 mmol/L (21.6-31.8); Globulin 1.9 g/dL (2.1-3.7); LDL Cholesterol,Calculated 110.6 mg/dL (0.0-131.0); Magnesium 1.9 mg/dL (1.5-2.4); Phosphorus 4.1 mg/dL (2.4-5.1); Potassium 4.5 mmol/L (3.5-5.5); Total Bilirubin 0.4 mg/dL (0.3-1.2); VLDL Calculation 21.4 mg/dL (5.00-40.00)
[2018-01-14 19:12] LABS: Parathyroid Hormone Intact 65.3 pg/mL (14.0-72.0)
[2018-01-14 20:56] LABS: Hemoglobin A1C 5.2 % (4.0-6.0)
[2018-01-15 11:37] LABS: Zinc, Serum 61 ug/dL (60-130)
[2018-01-16 05:47] LABS: Vitamin A 42 ug/dL (38-106)
[2018-01-16 06:12] LABS: Vitamin B1 46 ug/L (38-122)
== END | disposition home or self-care (01) ==
LOC: LABWHC1 12:47
PROVIDERS: ATTEND Surgery Plastic and Reconstructive Surgery
DX: E66.01 Morbid (severe) obesity due to excess calories (principal); E21.1 Secondary hyperparathyroidism, not elsewhere classified; E89.1 Postprocedural hypoinsulinemia; D50.8 Other iron deficiency anemias; K90.89 Other intestinal malabsorption; E55.9 Vitamin D deficiency, unspecified; K76.9 Liver disease, unspecified; T56.894A Toxic effect of other metals, undetermined, initial encounter; K90.9 Intestinal malabsorption, unspecified
CPT/HCPCS: 36415; 80053; 80061; 82306; 82525; 82607; 82728; 82746; 83036; 83540; 83550; 83735; 83970; 84100; 84134; 84255; 84425; 84443; 84590; 84630; 85027; 85610; 85730

== ENCOUNTER 2018-01-23 07:54 | Day surgery (SDC) | payer OTHER ==
[2018-01-21 09:38] VITALS: BMI 35.3
[~2018-01-23 07:54] MED LIST changes: +LACTATED RINGERS 1,000 ML IV SCH; -SUMAtriptan SUCCINATE 6 MG/0.5 ML VIAL SQ STA
[2018-01-23 08:33] VITALS: RESP 16; TEMP 97.6
[2018-01-23] MEDS ORDERED: PROPOFOL 10 MG/ML 20 ML VIAL IV ONE (08:33)
[2018-01-23] MEDS ORDERED: LIDOCAINE 1% INJ 10MG/ML (20 ML MDV) ONE (08:33)
[2018-01-23] MEDS ORDERED: LIDOCAINE 1% 20 ML VIAL (10MG/ML) FOR IV START INTRADERMA ONE (08:33)
--- NOTE | 2018-01-23 09:00 | P.PCN ---
Date of Procedure: 01/23/18 Description of Procedure: PREOPERATIVE DIAGNOSIS: Dysphagia. Nausea with vomiting. Morbid obesity due to excess calories Epigastric abdominal pain POSTOPERATIVE DIAGNOSIS: Dysphagia. Nausea with vomiting. Morbid obesity due to excess calories Epigastric abdominal pain Diffuse gastritis Gastrojejunal stricture without chronic ulcer without perforation OPERATION: Esophagogastrojejunoscopy with balloon dilatation from 12 to 20 mm. Esophagogastrojejunoscopy with cold biopsy forceps SPECIMEN: Antrum SURGEON: Komal Ceballos MD ANESTHESIA: MAC. INDICATIONS: The patient is a 42-year-old female who presents with a history of dysphagia including epigastric abdominal pain. Benefits and risks of the procedure were described. Informed consent was obtained. DESCRIPTION: The patient was brought into the endoscopy suite and laid in the left lateral decubitus position. After a timeout was confirmed, the procedure was initiated. An Olympus gastroscope was passed along the posterior oropharynx down to the distal esophagus where the squamocolumnar junction was unremarkable. The gastric pouch was entered. A gastrojejunal stricture of 12 mm was found as the adult gastroscope was 9.5 mm in size. A [employer] balloon dilator was placed through the scope. Final insufflation up to 20 mm was performed with a total of 2 minutes. The scope was advanced up to 60 cm from the incisors into the Guillermina limb. The mucosa of the gastrojejunal anastomosis was intact. No chronic gastrojejunal marginal ulcer was encountered. No full-thickness injury was encountered. Cold biopsy forceps was used for biopsies of the gastric pouch for gastritis. The GI tract was desufflated. The patient tolerated the procedure well. FINDINGS: Stricture of approximately 12 mm encountered. No chronic gastrojejunal ulceration encountered. Successful balloon dilatation to 20 mm. Gastritis of the gastric pouch. RECOMMENDATIONS: Upper endoscopy as needed.
[2018-01-23 09:21] VITALS: BP 124/74; PULSE 52
--- NOTE | 2018-02-04 07:08 | P.GSHP ---
History of Present Illness H&P Date: 01/23/18 CHIEF COMPLAINT: GERD HISTORY OF PRESENT ILLNESS: The patient is a 42-year-old female who presents reports gastroesophageal reflux disease. Upper endoscopy was offered for further evaluation and management. PAST MEDICAL HISTORY: Please see list. PAST SURGICAL HISTORY: Please see list. MEDICATIONS: Please see list. ALLERGIES: Please see list. SOCIAL HISTORY: No illicit drug use FAMILY HISTORY: No reports of Crohn disease or ulcerative colitis. REVIEW OF ORGAN SYSTEMS: CONSTITUTIONAL: No reports of fevers or chills. GI: Denies any blood in stools or constipation. PHYSICAL EXAM: VITAL SIGNS: Stable GENERAL: Well-developed and pleasant in no acute distress. HEENT: No scleral icterus. Extraocular movements grossly intact. Moist buccal mucosa. NECK: Supple without lymphadenopathy. CHEST: Unlabored respirations. Equal bilateral excursions. CARDIOVASCULAR: Regular rate and rhythm. Distal 2+ pulses. ABDOMEN: Soft, nondistended. MUSCULOSKELETAL: No clubbing, cyanosis, or edema. ASSESSMENT: 1. Gastroesophageal reflux disease PLAN: 1. Recommend proceeding with an upper endoscopy Past Medical History Past Medical History: Asthma, Sleep Apnea/CPAP/BIPAP Additional Past Medical History / Comment(s): HAVING A HARD TIME WITH GETTING FOOD TO PAST THROUGH SLEEVE. Uses C-Pap, Poly Cystic Ovarian Syndrome, Migraine Headaches 4-5x/week, H-Pylori Positive per EGD specimen results performed in [place] by Dr. Komal Ceballos (02/24/17 Medications e-scribed to [facility] in [place] to treat), Post op fluid collection (seroma) gastric bypass May 26 History of Any Multi-Drug Resistant Organisms: None Reported Past Surgical History: Appendectomy, Bariatric Surgery, Section, Cholecystectomy, Orthopedic Surgery, Tubal Ligation Additional Past Surgical History / Comment(s): x3: 1999, 2002, 2009; Bilateral Carpal Tunnel 2013; gastric bypass sx 05-26-17 (Dr. Ceballos) Past Anesthesia/Blood Transfusion Reactions: No Reported Reaction Smoking Status: Never smoker - Past Family History Father Family Medical History: Congestive Heart Failure (CHF), Coronary Artery Disease (CAD), Diabetes Mellitus Additional Family Medical History / Comment(s): at age 66 from heart failure Mother Family Medical History: Coronary Artery Disease (CAD), Diabetes Mellitus, Vascular Disorder Additional Family Medical History / Comment(s): Type II DM, Medications and Allergies Home Medications Medication Instructions Recorded Confirmed Type Albuterol Inhaler [Ventolin Hfa 1 - 2 puff INHALATION RT-Q6H PRN 01/30/17 History Inhaler] Multivitamin with Iron 1 each PO DAILY 06/17/17 01/21/18 History [Multivitamins with Iron] Ergocalciferol [Vitamin D2 50,000 unit PO DE 01/21/18 01/21/18 History (DRISDOL)] Allergies Allergy/AdvReac Type Severity Reaction Status Date / Time Penicillins Allergy Unknown Verified 01/23/18 08:08 Childhood hydromorphone [From Dilaudid] AdvReac Confusion Verified 01/23/18 08:08 Surgical - Exam Vital Signs Temp Pulse Resp BP Pulse Ox 97.6 F 52 L 16 102/55 100 01/23/18 08:31 01/23/18 08:31 01/23/18 08:31 01/23/18 08:31 01/23/18 08:31
== END 2018-01-23 10:10 | disposition home or self-care (01) ==
LOC: ORWHC2ENDO 07:54
PROVIDERS: ATTEND Surgery Plastic and Reconstructive Surgery
DX: K29.50 Unspecified chronic gastritis without bleeding (principal); B96.81 Helicobacter pylori [H. pylori] as the cause of diseases classified elsewhere; K31.89 Other diseases of stomach and duodenum; Z98.84 Bariatric surgery status; Z90.3 Acquired absence of stomach [part of]; E66.01 Morbid (severe) obesity due to excess calories; Z68.35 Body mass index [BMI] 35.0-35.9, adult; J45.909 Unspecified asthma, uncomplicated; G47.33 Obstructive sleep apnea (adult) (pediatric); Z99.89 Dependence on other enabling machines and devices; Z79.899 Other long term (current) drug therapy; Z88.5 Allergy status to narcotic agent; Z88.0 Allergy status to penicillin; Z90.49 Acquired absence of other specified parts of digestive tract; Z98.51 Tubal ligation status
CPT/HCPCS: 81025; 88305; 88342; 43239; 43245; J2001; J2704; C1726; 43249

== ENCOUNTER → 2018-02-04 | Outpatient (CLI) | payer OTHER ==
[2018-02-04 16:16] VITALS: BP 109/72; PULSE 64; TEMP 98; BMI 30.3
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
[2018-02-04 17:44] LABS: HCT 40.4 % (34.0-46.0); HGB 12.9 gm/dL (11.4-16.0); MCH 30.3 pg (25.0-35.0); MCHC 31.9 g/dL (31.0-37.0); MCV 94.8 fL (80.0-100.0); Mean Platelet Volume 8.8; Platelet Count 246 k/uL (150-450); RBC 4.26 m/uL (3.80-5.40); RDW 12.7 % (11.5-15.5)
[2018-02-04 17:58] LABS: INR 0.9 (<1.2); Partial Thromboplastin Time 24.2 sec (22.0-30.0); Prothrombin Time 9.9 sec (9.0-12.0)
[2018-02-05 02:22] LABS: Parathyroid Hormone Intact 93.5 pg/mL (14.0-72.0)
[2018-02-05 03:27] LABS: Hemoglobin A1C 5.1 % (4.0-6.0)
[2018-02-05 04:13] LABS: Albumin 3.9 g/dL (3.80-4.90); Albumin/Globulin Ratio 1.86 (1.20-2.10); Calcium 8.8 mg/dL (8.7-10.3); Globulin 2.1 g/dL (2.1-3.7); LDL Cholesterol,Calculated 117.6 mg/dL (0.0-131.0); Potassium 4.5 mmol/L (3.5-5.5); Total Bilirubin 0.4 mg/dL (0.3-1.2); VLDL Calculation 14.4 mg/dL (5.00-40.00)
[2018-02-05 04:14] LABS: Phosphorus 4.1 mg/dL (2.4-5.1)
[2018-02-05 04:23] LABS: Iron Saturation 18.88 (12.00-45.00)
[2018-02-05 04:31] LABS: Vitamin D 25 Hydroxy 17.1 ng/mL (30.0-100.0)
[2018-02-05 04:32] LABS: Folate, Serum 4.8 ng/mL
[2018-02-05 12:40] LABS: Zinc, Serum 92 ug/dL (60-130)
[2018-02-05 12:52] LABS: Vitamin A 47 ug/dL (38-106)
[2018-02-06 05:53] LABS: Vitamin B1 49 ug/L (38-122)
== END ==
LOC: BARWHC3 15:30
PROVIDERS: ATTEND Surgery Plastic and Reconstructive Surgery
DX: T28.2XXA Burn of other parts of alimentary tract, initial encounter (principal); M79.3 Panniculitis, unspecified; E66.01 Morbid (severe) obesity due to excess calories; E21.1 Secondary hyperparathyroidism, not elsewhere classified; E89.1 Postprocedural hypoinsulinemia; D50.9 Iron deficiency anemia, unspecified; K90.9 Intestinal malabsorption, unspecified; E55.9 Vitamin D deficiency, unspecified; K74.1 Hepatic sclerosis; N19 Unspecified kidney failure; K50.90 Crohn's disease, unspecified, without complications; Z68.30 Body mass index [BMI] 30.0-30.9, adult; Z79.899 Other long term (current) drug therapy
CPT/HCPCS: 84255; 84134; 84425; 80061; 80053; 82607; 82728; 82525; 82746; 83540; 83550; 83735; 84100; 84443; 84590; 84630; 85027; 85610; 85730; 82306; 83970; 83036; 97803; 36415; G0463; 99211

== ENCOUNTER 2018-06-08 13:49 | Inpatient (IN) | payer OTHER ==
[2018-06-08] MEDS ORDERED: LORazepam 2 MG/ML INJ IV PRN (14:11)
[2018-06-08] MEDS ORDERED: NALOXONE 0.4 MG/ML 1 ML VIAL IV PRN (14:11)
[2018-06-08] MEDS ORDERED: IOPAMIDOL-300 CONTRAST 30 ML VIAL (ORAL USE) PO PRN (14:14)
--- NOTE | 2018-06-08 15:09 | CT ---
EXAMINATION TYPE: CT abdomen pelvis w con DATE OF EXAM: 06/08/2018 COMPARISON: None HISTORY: Abdominal pain and vomiting after eating x [address] DLP: 1115.3 mGycm CONTRAST: CT scan of the abdomen and pelvis is performed with Oral Contrast and with IV Contrast, patient injec carlene with 100 mL of Isovue M300. FINDINGS: LUNG BASES-: No visible nodule. No infiltrate. LIVER/GB: The gallbladder surgically absent. No space occupying hepatic lesion. Biliary tree is of normal caliber. PANCREAS: No inflammation. No distinct mass. SPLEEN: No splenic enlargement. No lesion seen. ADRENALS: No nodule. No thickening. KIDNEYS/BLADDER: No hydronephrosis. No nephrolithiasis. No distinct renal mass. Urinary bladder g rossly unremarkable. BOWEL: Gastric bypass changes. No evidence for obstruction. No evidence for leak. No inflammatory pro cess identified. No evidence for abscess. GENITAL ORGANS: No gross abnormality. LYMPH NODES: No greater than 1cm abdominal or pelvic lymph nodes are appreciated. AORTA: No significant abnormality. OSSEOUS STRUCTURES: No significant abnormality is seen. OTHER: Prominent lymph nodes within the small bowel mesentery with the increased attenuation noted ma y reflect mesenteric panniculitis. IMPRESSION: 1. Gastric bypass changes. No evidence for obstruction. No evidence for leak. 2. Correlate for mesenteric panniculitis.
[2018-06-08] MEDS: SODIUM CHLORIDE 0.9% 1,000 ML IV SCH ×2 (15:35→18:01)
[2018-06-08 16:32] LABS: Basophils % (A) 0 %; Eosinophils # (A) 0.2 k/uL (0-0.7); Eosinophils % (A) 2 %; HCT 36.9 % (34.0-46.0); Lymphocytes # (A) 2.7 k/uL (1.0-4.8); Lymphocytes % (A) 35 %; MCH 30.6 pg (25.0-35.0); MCHC 32.4 g/dL (31.0-37.0); MCV 94.4 fL (80.0-100.0); Mean Platelet Volume 8.3; Monocytes # (A) 0.2 k/uL (0-1.0); Monocytes % (A) 3 %; Neutrophils # (A) 4.5 k/uL (1.3-7.7); Neutrophils % (A) 58 %; Platelet Count 211 k/uL (150-450); RBC 3.91 m/uL (3.80-5.40); RDW 12.7 % (11.5-15.5); WBC 7.8 k/uL (3.8-10.6)
[2018-06-08 16:46] LABS: ALT 23 U/L (9-52); AST 16 U/L (14-36); Albumin 3.5 g/dL (3.5-5.0); Alkaline Phosphatase 64 U/L (38-126); Amylase <30 U/L (30-110); Anion Gap 6 mmol/L; Blood Urea Nitrogen 14 mg/dL (7-17); Calcium 8.7 mg/dL (8.4-10.2); Carbon Dioxide 25 mmol/L (22-30); Chloride 107 mmol/L (98-107); Glucose 81 mg/dL (74-99); Lipase 281 U/L (23-300); Phosphorus 4.4 mg/dL (2.5-4.5); Potassium 4.1 mmol/L (3.5-5.1); Sodium 138 mmol/L (137-145); Total Bilirubin 0.7 mg/dL (0.2-1.3); Total Protein 6.1 g/dL (6.3-8.2)
--- NOTE | 2018-06-08 18:19 | P.GSHP ---
History of Present Illness H&P Date: 06/08/18 CHIEF COMPLAINT: Abdominal pain HISTORY OF PRESENT ILLNESS: The patient is a 43-year-old female seen in the office today and transferred to the hospital after presenting with severe abdominal pain for concern of bowel obstruction. She presents with 12 day history of worsening crampy periumbilical including left upper quadrant abdominal pain. She reports that she is been unable to tolerate fluids including food for the last 24 hours. Her history is significant for a gastric bypass performed in May 2017 now 1 year ago. She reports abdominal gas bloat as result. "I am afraid to eat." No reports of blood in stools. She denies any passage of flatus. "I feel weak." Since her gastric bypass, she has lost over 137 pounds in 1 year. She reports nausea. No fevers or chills. PAST MEDICAL HISTORY: See list. PAST SURGICAL HISTORY: See list. MEDICATIONS: See list. ALLERGIES: See list. SOCIAL HISTORY: No illicit drug use FAMILY HISTORY: No reports of Crohn's disease or inflammatory bowel disease REVIEW OF ORGAN SYSTEMS: CONSTITUTIONAL: No fevers or chills. Intentional weight loss 137 pounds. Height weight 321 pounds. EYES: Denies any trouble with vision. No glasses. HEENT: No difficulties with hearing. No nosebleeds. No difficulty swallowing. RESPIRATORY: Denies pneumonia. Denies any troubles with breathing or dyspnea on exertion. CARDIOVASCULAR: Denies any chest pain, palpitations, or recent heart attacks. GASTROINTESTINAL: Denies fatty food intolerance. Has change in bowel habits and gas bloat. History of H. pylori gastritis GENITOURINARY: Denies any blood in urine or increased urinary frequency. NEUROLOGICAL: Denies any numbness or tingling along the distal extremities. No seizure disorders or headaches. MUSCULOSKELETAL: Has back pain, stiffness or joint arthritis. SKIN: No current skin cancer. No rash. PSYCHIATRIC: Denies current depression or suicidal thoughts. ENDOCRINE: Denies current thyroid disorders. Denies any blood sugar glucose intolerance. HEME/LYMPHATIC: Denies any lumps and bumps around the neck. No recent deep venous thrombosis. History of iron deficiency anemia ALLERGY/IMMUNOLOGY: No immunoglobulin therapy. No immune deficiencies. BREAST: Denies current breast lumps, pain or nipple discharge. PHYSICAL EXAM: VITALS: Reviewed CONSTITUTIONAL: Well developed and in no acute distress. EYES: Conjuctivae without sclera icterus. Pupils are equally round and reactive to light. Extraocular movements grossly intact. HEAD, EARS, NOSE, THROAT: Moist buccal mucosa. Head is atraumatic, normocephalic. Hears conversational speech. No nasal drainage. Good dentition. NECK: Supple. No JV distention. No thyroidomegaly. RESPIRATORY: Non-labored respirations and equal bilateral excursions. No gross wheezes. CARDIOVASCULAR: Regular rate and rhythm. Extremities without moderate edema. Palpable 2+ radial pulses. ABDOMEN: No hepatomegaly. Mildly distended. Tender along the epigastrium left upper quadrant without guarding. LYMPH: No neck lymphadenopathy. MUSCULOSKELETAL: Gait within normal limits. Range of motion bilateral upper extremities within normal limits. Nail and fingers with good capillary refill. SKIN: Warm and well perfused with good skin turgor. NEUROLOGIC: Cranial nerves I through XII grossly intact. Sensation upper and extremities intact. No focal or lateralizing signs. PSYCH: Appropriate affect. Alert and oriented to person, place and time. Displays appropriate insight. CLINCAL LABS: Reviewed without leukocytosis. Lipase within normal limits. RADIOLOGY: Report reviewed without pneumoperitoneum. IMAGING: Independently reviewed showing mesenteric swirl along the left upper q uadrant and periumbilical area highly suspicious for internal hernia. This is my personal interpretation. ASSESSMENT: 1. Acute epigastric left upper quadrant abdominal pain 2. Internal hernia with small bowel obstruction 3. History of gastric bypass 4. History of prior surgery with risk of peritoneal adhesion 5. Morbid obesity due to excess calories, BMI 37.4 6. History of iron deficiency anemia PLAN: 1. IV fluid hydration as she has not drank fluids in over 24 hours 2. Laparoscopic lysis of adhesions described with repair reduction of internal hernia. She is intermediate risk for complications with acute onset abdominal pain 3. Nothing by mouth except ice chips. 4. DVT prophylaxis with SCDs and ambulation 5. Full inpatient hospitalization anticipated more than 2 nights Past Medical History Past Medical History: Asthma, Sleep Apnea/CPAP/BIPAP Additional Past Medical History / Comment(s): HAVING A HARD TIME WITH GETTING FOOD TO PAST THROUGH SLEEVE. Uses C-Pap, Poly Cystic Ovarian Syndrome, Migraine Headaches 4-5x/week, H-Pylori Positive per EGD specimen results performed in [place] by Dr. Komal Ceballos (02/24/17 Medications e-scribed to [facility] to treat), Post op fluid collection (seroma) gastric bypass May 26 History of Any Multi-Drug Resistant Organisms: None Reported Past Surgical History: Appendectomy, Bariatric Surgery, Section, Cholecystectomy, Orthopedic Surgery, Tubal Ligation Additional Past Surgical History / Comment(s): x3: 1999, 2002, 2009; Bilateral Carpal Tunnel 2013; gastric bypass sx 05-26-17 (Dr. Ceballos) Past Anesthesia/Blood Transfusion Reactions: No Reported Reaction Past Psychological History: No Psychological Hx Reported Smoking Status: Never smoker Past Alcohol Use History: None Reported Past Drug Use History: None Reported - Past Family History Father Family Medical History: Congestive Heart Failure (CHF), Coronary Artery Disease (CAD), Diabetes Mellitus Additional Family Medical History / Comment(s): at age 66 from heart failure Mother Family Medical History: Coronary Artery Disease (CAD), Diabetes Mellitus, Vascular Disorder Additional Family Medical History / Comment(s): Type II DM, Medications and Allergies Home Medications Medication Instructions Recorded Confirmed Type Multivitamin with Iron 1 each PO DAILY 06/17/17 06/08/18 History [Multivitamins with Iron] Calcium Carbonate [Calcium] 600 mg PO DAILY 06/08/18 06/08/18 History Ferrous Sulfate [Iron (65 MG 325 mg PO DAILY 06/08/18 06/08/18 History Elemental)] Allergies Allergy/AdvReac Type Severity Reaction Status Date / Time Penicillins Allergy Unknown Verified 06/08/18 16:50 Childhood hydromorphone [From Dilaudid] AdvReac Confusion Verified 06/08/18 16:50 Surgical - Exam Vital Signs Temp Pulse Resp BP Pulse Ox 98.2 F 58 L 17 112/74 100 06/08/18 15:05 06/08/18 15:05 06/08/18 15:05 06/08/18 15:05 06/08/18 15:05 Results - Labs 06/08/18 16:15 06/08/18 16:15 Abnormal Lab Results - Last 24 Hours (Table) 06/08/18 Range/Units 16:15 Creatinine 0.50 L (0.52-1.04) mg/dL Total Protein 6.1 L (6.3-8.2) g/dL Amylase <30 L (30-110) U/L Diabetes panel 06/08/18 Range/Units 16:15 Sodium 138 (137-145) mmol/L Potassium 4.1 (3.5-5.1) mmol/L Chloride 107 (98-107) mmol/L Carbon Dioxide 25 (22-30) mmol/L BUN 14 (7-17) mg/dL Creatinine 0.50 L (0.52-1.04) mg/dL Glucose 81 (74-99) mg/dL Calcium 8.7 (8.4-10.2) mg/dL AST 16 (14-36) U/L ALT 23 (9-52) U/L Alkaline Phosphatase 64 (38-126) U/L Total Protein 6.1 L (6.3-8.2) g/dL Albumin 3.5 (3.5-5.0) g/dL Calcium panel 06/08/18 Range/Units 16:15 Calcium 8.7 (8.4-10.2) mg/dL Phosphorus 4.4 (2.5-4.5) mg/dL Albumin 3.5 (3.5-5.0) g/dL Pituitary panel 06/08/18 Range/Units 16:15 Sodium 138 (137-145) mmol/L Potassium 4.1 (3.5-5.1) mmol/L Chloride 107 (98-107) mmol/L Carbon Dioxide 25 (22-30) mmol/L BUN 14 (7-17) mg/dL Creatinine 0.50 L (0.52-1.04) mg/dL Glucose 81 (74-99) mg/dL Calcium 8.7 (8.4-10.2) mg/dL Adrenal panel 06/08/18 Range/Units 16:15 Sodium 138 (137-145) mmol/L Potassium 4.1 (3.5-5.1) mmol/L Chloride 107 (98-107) mmol/L Carbon Dioxide 25 (22-30) mmol/L BUN 14 (7-17) mg/dL Creatinine 0.50 L (0.52-1.04) mg/dL Glucose 81 (74-99) mg/dL Calcium 8.7 (8.4-10.2) mg/dL Total Bilirubin 0.7 (0.2-1.3) mg/dL AST 16 (14-36) U/L ALT 23 (9-52) U/L Alkaline Phosphatase 64 (38-126) U/L Total Protein 6.1 L (6.3-8.2) g/dL Albumin 3.5 (3.5-5.0) g/dL - Imaging CT scan - abdomen: report reviewed, image reviewed CT scan - pelvis: report reviewed, image reviewed Assessment and Plan (1) Small bowel obstruction Current Visit: Yes Status: Acute Code(s): K56.609 - UNSP INTESTNL OBST, UNSP TO PARTIAL VERSUS COMPLETE OBST SNOMED Code(s): 922226360 (2) Internal hernia Current Visit: Yes Status: Acute Code(s): K45.8 - OTH ABDOMINAL HERNIA WITHOUT OBSTRUCTION OR GANGRENE SNOMED Code(s): 41570109 (3) Iron deficiency anemia due to dietary causes Current Visit: Yes Status: Acute Code(s): D50.8 - OTHER IRON DEFICIENCY ANEMIAS SNOMED Code(s): 381613747 (4) Helicobacter pylori gastritis Current Visit: Yes Status: Acute Code(s): K29.70 - GASTRITIS, UNSPECIFIED, WITHOUT BLEEDING; B96.81 - HELICOBACTER PYLORI THE CAUSE [facility] DISEASES [facility] SNOMED Code(s): 090822295 (5) History of Guillermina-en-Y gastric bypass Current Visit: Yes Status: Acute Code(s): Z98.84 - BARIATRIC SURGERY STATUS SNOMED Code(s): 712478988 (6) BMI 37.0-37.9, adult Current Visit: Yes Status: Acute Code(s): Z68.37 - BODY MASS INDEX (BMI) 37.0-37.9, ADULT SNOMED Code(s): 369959518 (7) Left upper quadrant pain Current Visit: Yes Status: Acute Code(s): R10.12 - LEFT UPPER QUADRANT PAIN SNOMED Code(s): 738911184 (8) Periumbilical abdominal cramping Current Visit: Yes Status: Acute Code(s): R10.33 - PERIUMBILICAL PAIN SNOMED Code(s): 377275179
[2018-06-09] MEDS: SODIUM CHLORIDE 0.9% 1,000 ML IV SCH ×2 (03:57→17:02)
[2018-06-09] MEDS ORDERED: ENOXAPARIN 30 MG/0.3 ML SYRINGE SQ SCH (09:00)
--- NOTE | 2018-06-09 11:01 | P.PN ---
<Varsha Morin - Last Filed: 06/09/18 10:53> Subjective Progress Note Date: 06/09/18 CHIEF COMPLAINT: abdominal pain HISTORY OF PRESENT ILLNESS: Patient examined at the bedside. She is very tired this morning and states she did not sleep well due to another patient being loud all night. She reports mid-abdominal pain just below umbilicus, but reports it is tolerable at this time. She denies nausea or vomiting. She thinks she is passing small amount of flatus. Denies BM. Afebrile. BP 102/67 this morning which is near patients baseline. PHYSICAL EXAM: VITAL SIGNS: Reviewed. GENERAL: Well-developed in no acute distress. HEENT: No sclera icterus. Extraocular movements grossly intact. Moist buccal mucosa. Head is atraumatic, normocephalic. ABDOMEN: Soft. Nondistended. Tenderness upon palpation just below umbilicus. NEUROLOGIC: Alert and oriented. Cranial nerves II through XII grossly intact. ASSESSMENT: 1. Abdominal pain 2. Internal hernia with small bowel obstruction 3. History of gastric bypass 4. History of prior surgery with risk of peritoneal adhesions 5. Morbid obesity due to excess calories, BMI 37.4 6. History of iron deficiency anemia PLAN: 1. Continue IV fluids 2. NPO 3. Activity as tolerated. Encouraged ambulation 4. Incentive spirometry 5. Patient is scheduled for laparoscopic lysis of adhesions and repair of internal hernia tomorrow with Dr. Ceballos Nurse practitioner note has been reviewed by physician. Signing provider agrees with the documented findings, assessment, and plan of care. Objective - Vital Signs Vital signs: Vital Signs Temp 98.6 F 06/09/18 07:00 Pulse 80 06/09/18 07:00 Resp 17 06/09/18 07:00 BP 102/67 06/09/18 07:00 Pulse Ox 99 06/09/18 07:00 Intake & Output 06/08/18 06/09/18 06/09/18 18:59 06:59 18:59 Weight 84.007 kg - Labs CBC & Chem 7: 06/08/18 16:15 06/08/18 16:15 Labs: Abnormal Lab Results - Last 24 Hours (Table) 06/08/18 Range/Units 16:15 Creatinine 0.50 L (0.52-1.04) mg/dL Total Protein 6.1 L (6.3-8.2) g/dL Amylase <30 L (30-110) U/L <Josh Mcclelland - Last Filed: 06/09/18 17:02> Subjective As above. Patient still having mild abdominal discomfort primarily in the left midabdomen. Denies nausea or vomiting currently. Plans are underway for laparoscopic lysis of adhesions tomorrow. Objective - Vital Signs Vital signs: Vital Signs Temp 98.6 F 06/09/18 07:00 Pulse 80 06/09/18 07:00 Resp 17 06/09/18 07:00 BP 102/67 06/09/18 07:00 Pulse Ox 99 06/09/18 07:00 Intake & Output 06/08/18 06/09/18 06/09/18 18:59 06:59 18:59 Output Total 400 Balance -400 Weight 84.007 kg Output: Urine 400 Other: # Voids 1 - Labs CBC & Chem 7: 06/08/18 16:15 06/08/18 16:15
[2018-06-10] MEDS: SODIUM CHLORIDE 0.9% 1,000 ML IV SCH ×3 (00:06→19:24)
[2018-06-10 09:37] LABS: Appearance,Urine Clear (Clear); Bacteria,Urine Rare /hpf; Bilirubin,Urine Negative (Negative); Blood,Urine Moderate (Negative); Color,Urine Yellow; Glucose,Urine (UA) Negative (Negative); Ketones,Urine 2+ (Negative); Leukocyte Esterase,Urine Trace (Negative); Mucus,Urine Few /hpf; Nitrite,Urine Negative (Negative); PH, Urine 5.5 (5.0-8.0); Protein,Urine Negative (Negative); RBC,Urine >182 /hpf (0-5); Specific Gravity,Urine 1.015 (1.001-1.035); Squamous Epithelial Cell,Urine 2 /hpf (0-4); Urobilinogen,Urine <2.0 mg/dL (<2.0); WBC,Urine 12 /hpf (0-5)
[2018-06-10] MEDS ORDERED: LACTATED RINGERS 1,000 ML IV ONE ×4 (10:00→14:40)
[2018-06-10] MEDS ORDERED: LIDOCAINE 1% 20 ML VIAL (10MG/ML) FOR IV START INTRADERMA ONE (10:00)
[2018-06-10 10:36] LABS: Partial Thromboplastin Time 24.7 sec (22.0-30.0); Prothrombin Time 10.3 sec (9.0-12.0)
[2018-06-10] MEDS: ONDANSETRON 4 MG/2 ML VIAL IVP PRN ×2 (10:37→19:23)
[2018-06-10] MEDS ORDERED: DEXAMETHASONE SOD PHOSPHATE 10 MG/ML 1 ML VIAL IV ONE (10:37)
[2018-06-10] MEDS: ENOXAPARIN 40 MG/0.4 ML SYRINGE SQ SCH (10:51)
[2018-06-10] MEDS ORDERED: BUPIVACAINE-EPI 0.5%-1:200,000 10 ML VIAL SQ ONE ×3 (11:05→12:22)
[2018-06-10] MEDS ORDERED: MORPHINE SULFATE 10 MG/ML SYRINGE ONE (11:34)
[2018-06-10] MEDS ORDERED: ceFAZolin 1,000 MG VIAL ONE (11:34)
[2018-06-10] MEDS ORDERED: PROPOFOL 10 MG/ML 20 ML VIAL IV ONE (11:34)
[2018-06-10] MEDS ORDERED: SUCCINYLCHOLINE CHLORIDE 100 MG/5 ML SYR IV ONE (11:34)
[2018-06-10] MEDS ORDERED: NEOSTIGMINE 1 MG/ML 10 ML VIAL ONE (11:34)
[2018-06-10] MEDS ORDERED: ROCURONIUM BROMIDE 10 MG/ML 10 ML VIAL IV ONE (11:34)
[2018-06-10] MEDS ORDERED: KETOROLAC 30 MG/ML 1 ML VIAL ONE (11:34)
[2018-06-10] MEDS ORDERED: fentaNYL (PF) 50 MCG/ML 2 ML AMP ONE (11:34)
[2018-06-10] MEDS ORDERED: MIDAZOLAM 2 MG/2 ML VIAL ONE (11:34)
[2018-06-10] MEDS ORDERED: GLYCOPYRROLATE 0.2 MG/ML 2 ML VIAL ONE (11:34)
[2018-06-10] MEDS ORDERED: LIDOCAINE 1% INJ 10MG/ML (20 ML MDV) ONE (11:34)
[2018-06-10] MEDS ORDERED: fentaNYL (PF) 50 MCG/ML 2 ML AMP IV ONE (15:00)
[2018-06-10] MEDS ORDERED: ONDANSETRON 4 MG/2 ML VIAL IVP ONE (15:17)
--- NOTE | 2018-06-10 15:57 | P.OP ---
Date of Procedure: 06/10/18 Description of Procedure: SURGEON: ASHVIN MAYBERRY MD PREOPERATIVE DIAGNOSES: 1. Acute epigastric left upper quadrant abdominal pain 2. Clinical history of small bowel obstruction 3. History of gastric bypass 4. History of prior surgery with risk of peritoneal adhesion 5. Morbid obesity due to excess calories, BMI 37.4 6. History of iron deficiency anemia 7. Periumbilical abdominal pain POSTOPERATIVE DIAGNOSES: 1. Acute epigastric left upper quadrant abdominal pain 2. Clinical history of small bowel obstruction 3. History of gastric bypass 4. History of prior surgery with risk of peritoneal adhesion 5. Morbid obesity due to excess calories, BMI 37.4 6. History of iron deficiency anemia 7. Periumbilical abdominal pain 8. Incarcerated initial umbilical hernia 9. Peritoneal adhesions left upper quadrant, right lower pelvis 10. Entire small bowel volvulus with internal hernia 11. Abdominal ascites OPERATION: 1. Robotic-assisted da Melinda Xi laparoscopic with lysis of adhesions 2. Robotic-assisted da Melinda Xi laparoscopic reduction of incarcerated initial umbilical hernia 3. Open laparotomy for reduction of entire small bowel volvulus and internal hernia ESTIMATED BLOOD LOSS: 50 mL. SPECIMENS REMOVED: Peritoneal adhesion COMPLICATIONS: None. OPERATIVE FINDINGS: 1. Initial incarcerated umbilical hernia involving greater omentum, reduced 2. Adhesions along the left upper quadrant and right lower pelvis divided 3. Defects along the greater omentum divided for risk for internal hernia 4. Ligament of Treitz to terminal ileum with complete small bowel volvulus into jejunojejunostomy internal hernia 5. Small bowel initially ischemic without infarction completely viable after small bowel reduction of volvulus INDICATIONS: The patient is a 43-year-old female who presents subacute abdominal pain periumbilical including left upper quadrant almost 2 weeks. She reported inability to pass flatus including abdominal distention. She also reported pain with eating. Diagnosis studies with CT of the abdomen and pelvis demonstrated mesenteric swirl highly suspicious for volvulus/internal hernia. Surgical intervention with laparoscopic lysis of adhesions possible bowel resection and possible laparotomy were described. Informed consent was obtained. Robotic assisted laparoscopic approach was described. Benefits and risks of the procedure including but not limited to bleeding, infection, need for further surgery was described. Informed consent was obtained. DESCRIPTION OF PROCEDURE: Patient was brought to the operating room, placed in supine position. After general induction, the abdomen had been prepped and draped in standard sterile fashion. The robotic da Melinda XI system was primed. After a timeout protocol was performed, the patient had been prepped and draped in standard sterile fashion. Please note prior to docking of the robot; however, a 5 mm 0 degrees laparoscopic trocar entry was performed along the left upper quadrant. The abdomen was insufflated to 15 mmHg pressure she tolerated well. Next, three 8 mm robotic ports were placed along the right lateral abdominal wall. The camera 8-mm port was maintained along mid- lateral abdomen. Please note that the ports were placed at least 10 cm away from the target anatomy. Diagnostic laparoscopy demonstrated omental adhesion of the left upper quadrant including a incarcerated umbilical hernia involving greater omentum. The distal small bowel was dilated. Turbid peritoneal fluid with ascites was identified. The patient was repositioned in with right side up. The robot was docked along the right lateral abdomen. Using a grasper for arm 2, including scissor for arm 1, the robotic system was docked and primed as described. Instruments were interchanged by the cafeteria assistant including Bovie cautery scissors. I had sat at the console. Omental adhesions along the left upper abdominal wall was addressed using scissors. The fascia of the umbilicus was widened to reduce the incarcerated umbilical ventral hernia of 1.5 cm in size. No evidence of incisional hernia from her previous bariatric surgery was identified. Separate pelvic peritoneal adhesion of greater omentum to the right pelvis was addressed using vessel sealer. Transverse mesocolon defects at least 2 were identified and divided to prevent internal hernias. Next, attention was brought to the kirk limb which appeared tethered to the retroperitoneum. Separately attention was brought to identify the cecum which was submerged under the small bowel. With the limited view from the right side of the abdomen, decision was made to place additional three 8 mm trochars along the left lateral abdominal wall. The robot was undocked. The case was proceeded laparoscopically where attention was brought to identify the cecum. The cecum was found tethered to the retroperitoneum with the terminal ileum where a volvulus was identified pulling the small bowel towards the left upper quadrant. Despite careful traction to reduce the volvulus, decision was made to reduce the small bowel volvulus via open laparotomy. All laparoscopic and robotic equipment was removed from the field. A midline incision from the xiphoid to the lower abdomen was made using #10 blade. The midline was entered via the peritoneum using insufflation. A Bookwalter system was placed for optimal exposure of the field. Hemostasis was checked. The distal small bowel was mildly ischemic, without infarction. Next, the terminal ileum was traced where a retroperitoneal small volvulus involving the ligament of Treitz exiting via the left upper quadrant over the jejunojejunostomy anastomosis. The defect was large enough to allow my entire hand to pull the small bowel gently towards its normal anatomical position. The volvulus was reduced. The rest of the small bowel was pink and viable. The resultant defect was confirmed along the jejunojejunostomy where previous intra-abdominal fat had completely obliterated the space had dissolved consistent with her massive weight loss of over 140 pounds. The mesenteric defect was oversewn using 2-0 V- LOC. The kirk limb was unremarkable. Ascites was drained from the abdomen less than 50 mL. All pneumoperitoneum instruments were evacuated from the abdominal cavity. The trocar incisions were reapproximated using 4-0 Monocryl in an interrupted subcuticular fashion. Please note along the trocar sites, local anesthetic was placed as a field block prior to insertion of all instruments. Exofin was applied to the skin. The midline incision was closed using #1 double stranded PDS. The midline skin was reapproximated with 0 Vicryl followed by running suture of 3-0 Monocryl. The skin was cleansed using dilute hydrogen peroxide. An Optifoam surgical dressing was placed along the midline. An abdominal binder was placed. At the end of the procedure needle, sponge, and instrument count had been verified correct by the rn surgical pcu. The patient was transferred to postanesthesia care unit in stable condition.
[2018-06-10] MEDS: MORPHINE SULFATE 4 MG/ML SYRINGE IVP PRN ×2 (17:57→22:01)
[2018-06-10] MEDS: 0.9% NACL WITH KCL 20 MEQ/L 1,000 ML IV SCH (19:24)
[2018-06-10] MEDS: SIMETHICONE 40 MG/0.6 ML DROPS 2,000 MG/30 ML BOTTLE PO SCH (19:24)
[2018-06-11] MEDS: 0.9% NACL WITH KCL 20 MEQ/L 1,000 ML IV SCH ×4 (00:35→22:26)
[2018-06-11] MEDS: SIMETHICONE 40 MG/0.6 ML DROPS 2,000 MG/30 ML BOTTLE PO SCH ×5 (00:35→23:46)
[2018-06-11] MEDS: SODIUM CHLORIDE 0.9% 1,000 ML IV SCH ×3 (01:31→20:16)
[2018-06-11] MEDS: MORPHINE SULFATE 4 MG/ML SYRINGE IVP PRN ×7 (02:36→23:46)
[2018-06-11] MEDS: ONDANSETRON 4 MG/2 ML VIAL IVP PRN ×3 (06:05→17:20)
[2018-06-11 08:09] LABS: Basophils % (A) 0 %; Eosinophils # (A) 0.1 k/uL (0-0.7); Eosinophils % (A) 1 %; HCT 31.2 % (34.0-46.0); HGB 10.4 gm/dL (11.4-16.0); Lymphocytes # (A) 0.9 k/uL (1.0-4.8); Lymphocytes % (A) 9 %; MCHC 33.3 g/dL (31.0-37.0); MCV 93.4 fL (80.0-100.0); Mean Platelet Volume 8.5; Monocytes # (A) 0.3 k/uL (0-1.0); Monocytes % (A) 4 %; Neutrophils # (A) 7.7 k/uL (1.3-7.7); Neutrophils % (A) 85 %; Platelet Count 186 k/uL (150-450); RBC 3.34 m/uL (3.80-5.40); RDW 12.6 % (11.5-15.5); WBC 9.1 k/uL (3.8-10.6)
[2018-06-11 08:17] LABS: Anion Gap 6 mmol/L; Blood Urea Nitrogen 10 mg/dL (7-17); Calcium 7.9 mg/dL (8.4-10.2); Carbon Dioxide 19 mmol/L (22-30); Chloride 112 mmol/L (98-107); Magnesium 1.4 mg/dL (1.6-2.3); Phosphorus 3.9 mg/dL (2.5-4.5); Potassium 4.2 mmol/L (3.5-5.1); Sodium 137 mmol/L (137-145)
[2018-06-11] MEDS ORDERED: MORPHINE SULFATE 2 MG/ML SYRINGE IVP STA (09:10)
[2018-06-11] MEDS: BENZOCAINE/MENTHOL LOZENG 1 EACH LOZENGE MUCOUS MEM PRN ×3 (09:21→23:45)
[2018-06-11] MEDS: MAGNESIUM SULFATE-D5W PMX 1 GM in DEXTROSE/WATER 1 100ML.BAG IVPB SCH ×4 (09:22→14:48)
[2018-06-11] MEDS: ENOXAPARIN 40 MG/0.4 ML SYRINGE SQ SCH (10:29)
[2018-06-11] MEDS ORDERED: SODIUM CHLORIDE 0.9% 500 ML 500 ML IV ONE (10:45)
--- NOTE | 2018-06-11 10:48 | P.PN ---
<Varsha Morin Lucila - Last Filed: 06/11/18 10:45> Subjective Progress Note Date: 06/11/18 CHIEF COMPLAINT: abdominal pain HISTORY OF PRESENT ILLNESS: Patient examined this morning at the bedside. Patient is status post lysis of adhesions, reduction of incarcerated umbilical hernia, and open laparotomy for reduction of entire small bowel volvulus and internal hernia. Patient currently reports significant pain as she just had indwelling urinary catheter removed and the movement in the bed exacerbated her pain. Reports morphine has been controlling her pain but does not last long enough until next dose is due. She is tolerating clear liquids. Denies nausea or vomiting. Denies passing flatus or BM. Using IS. Pulling 1500cc. Hemoglobin 10.4. Magnesium 1.4. Patient was hypotensive in recovery room yesterday but did not require IV bolus. IV fluids infusing at 100cc/hr. Blood pressure this morning 88/57 after IV morphine was administered. Patient asymptomatic. Repeat BP 94/59. PHYSICAL EXAM: VITAL SIGNS: Reviewed. GENERAL: Well-developed in no acute distress. HEENT: No sclera icterus. Extraocular movements grossly intact. Moist buccal mucosa. Head is atraumatic, normocephalic. ABDOMEN: Soft. Nondistended. Midline dressing clean dry intact. Abdominal binder in place. NEUROLOGIC: Alert and oriented. Cranial nerves II through XII grossly intact. ASSESSMENT: 1. Abdominal pain 2. Internal hernia with small bowel obstruction 3. History of gastric bypass 4. History of prior surgery with risk of peritoneal adhesions 5. Morbid obesity due to excess calories, BMI 37.4 6. History of iron deficiency anemia 7. Status post lysis of adhesions, reduction of incarcerated umbilical hernia, and open laparotomy for reduction of entire small bowel volvulus and internal hernia PLAN: 1. Monitor blood pressure. Continue IV fluids at 100cc/hr. 500cc bolus x 1 now. 2. Monitor hemoglobin. Repeat in AM 3. Replace magnesium 4. Cepacol lozenges for sore throat 5. Continue clear liquid diet. Await bowel function 6. Activity as tolerated 7. Pain control. Morphine 2mg x 1 now for breakthrough pain. Will increase frequency of PRN morphine to Q3 hours. Nurse practitioner note has been reviewed by physician. Signing provider agrees with the documented findings, assessment, and plan of care. Objective - Vital Signs Vital signs: Vital Signs Temp 98.5 F 06/11/18 08:11 Pulse 60 06/11/18 08:11 Resp 17 06/11/18 08:11 BP 88/57 06/11/18 08:11 Pulse Ox 94 L 06/11/18 08:11 Intake & Output 06/10/18 06/11/18 06/11/18 18:59 06:59 18:59 Intake Total 3300 120 420 Output Total 1050 425 300 Balance 2250 -305 120 Intake: IV 3300 Oral 120 420 Output: Urine 1000 425 300 Uretheral (Mcdermott) 300 Estimated Blood Loss 50 Other: Voiding Method Indwelling Catheter # Voids 1 - Labs CBC & Chem 7: 06/11/18 07:30 06/11/18 07:30 Labs: Abnormal Lab Results - Last 24 Hours (Table) 06/11/18 06/11/18 Range/Units 07:30 07:30 RBC 3.34 L (3.80-5.40) m/uL Hgb 10.4 L (11.4-16.0) gm/dL Hct 31.2 L (34.0-46.0) % Lymphocytes # 0.9 L (1.0-4.8) k/uL Chloride 112 H (98-107) mmol/L Carbon Dioxide 19 L (22-30) mmol/L Creatinine 0.50 L (0.52-1.04) mg/dL Calcium 7.9 L (8.4-10.2) mg/dL Magnesium 1.4 L (1.6-2.3) mg/dL Assessment and Plan (1) Small bowel volvulus Current Visit: Yes Status: Acute Code(s): K56.2 - VOLVULUS SNOMED Code(s): 968942411 (2) BMI 37.0-37.9, adult Current Visit: Yes Status: Acute Code(s): Z68.37 - BODY MASS INDEX (BMI) 37.0-37.9, ADULT SNOMED Code(s): 154611410 (3) History of Guillermina-en-Y gastric bypass Current Visit: Yes Status: Acute Code(s): Z98.84 - BARIATRIC SURGERY STATUS SNOMED Code(s): 434630423 (4) Internal hernia Current Visit: Yes Status: Acute Code(s): K45.8 - OTH ABDOMINAL HERNIA WITH OUT OBSTRUCTION OR GANGRENE SNOMED Code(s): 68588474 <Komal Ceballos N - Last Filed: 06/11/18 15:39> Subjective Patient seen and evaluated. She still reports soreness from surgery. She started drinking sips of liquids. Likely hospitalization over the next 24-48 hours pending oral intake. We'll adjust pain meds to Tylenol as she reports not liking morphine. Close outpatient follow-up. Patient is scheduled for outpatient follow-up on June 16. Objective - Vital Signs Vital signs: Vital Signs Temp 98.5 F 06/11/18 08:11 Pulse 72 06/11/18 10:45 Resp 17 06/11/18 08:11 BP 101/66 06/11/18 13:00 Pulse Ox 95 06/11/18 12:32 Intake & Output 06/10/18 06/11/18 06/11/18 18:59 06:59 18:59 Intake Total 3300 120 420 Output Total 1050 425 500 Balance 2250 -305 -80 Intake: IV 3300 Oral 120 420 Output: Urine 1000 425 500 Uretheral (Mcdermott) 300 Estimated Blood Loss 50 Other: Voiding Method Indwelling Catheter Indwelling Catheter # Voids 1 - Labs CBC & Chem 7: 06/11/18 07:30 06/11/18 07:30 Labs: Abnormal Lab Results - Last 24 Hours (Table) 06/11/18 06/11/18 Range/Units 07:30 07:30 RBC 3.34 L (3.80-5.40) m/uL Hgb 10.4 L (11.4-16.0) gm/dL Hct 31.2 L (34.0-46.0) % Lymphocytes # 0.9 L (1.0-4.8) k/uL Chloride 112 H (98-107) mmol/L Carbon Dioxide 19 L (22-30) mmol/L Creatinine 0.50 L (0.52-1.04) mg/dL Calcium 7.9 L (8.4-10.2) mg/dL Magnesium 1.4 L (1.6-2.3) mg/dL Assessment and Plan (1) Small bowel obstruction Current Visit: Yes Status: Acute Code(s): K56.609 - UNSP INTESTNL OBST, UNSP TO PARTIAL VERSUS COMPLETE OBST SNOMED Code(s): 548087676 (2) Internal hernia Current Visit: Yes Status: Acute Code(s): K45.8 - OTH ABDOMINAL HERNIA WITHOUT OBSTRUCTION OR GANGRENE SNOMED Code(s): 40713828 (3) Iron deficiency anemia due to dietary causes Current Visit: Yes Status: Acute Code(s): D50.8 - OTHER IRON DEFICIENCY ANEMIAS SNOMED Code(s): 903011546 (4) Helicobacter pylori gastritis Current Visit: Yes Status: Acute Code(s): K29.70 - GASTRITIS, UNSPECIFIED, WITHOUT BLEEDING; B96.81 - HELICOBACTER PYLORI THE CAUSE OF DISEASES [facility]ASSD [facility] SNOMED Code(s): 615466565 (5) History of Guillermina-en-Y gastric bypass Current Visit: Yes Status: Acute Code(s): Z98.84 - BARIATRIC SURGERY STATUS SNOMED Code(s): 671832381 (6) BMI 37.0-37.9, adult Current Visit: Yes Status: Acute Code(s): Z68.37 - BODY MASS INDEX (BMI) 37.0-37.9, ADULT SNOMED Code(s): 050617640 (7) Left upper quadrant pain Current Visit: Yes Status: Acute Code(s): R10.12 - LEFT UPPER QUADRANT PAIN SNOMED Code(s): 041319390 (8) Periumbilical abdominal cramping Current Visit: Yes Status: Acute Code(s): R10.33 - PERIUMBILICAL PAIN SNOMED Code(s): 993447600
[2018-06-11 16:22] LABS: Iron Saturation 3.93 (12.00-45.00)
[2018-06-11] MEDS: SODIUM FERRIC GLUCONAT-SUCROSE 125 MG in SODIUM CHLORIDE 0.9% 100 ML IVPB SCH (17:16)
[2018-06-12] MEDS: SIMETHICONE 40 MG/0.6 ML DROPS 2,000 MG/30 ML BOTTLE PO SCH ×3 (05:27→18:10)
[2018-06-12] MEDS: MORPHINE SULFATE 4 MG/ML SYRINGE IVP PRN ×4 (05:28→19:27)
[2018-06-12] MEDS: 0.9% NACL WITH KCL 20 MEQ/L 1,000 ML IV SCH ×3 (05:41→19:27)
--- NOTE | 2018-06-12 09:36 | P.PN ---
<Varsha Morin Lucila - Last Filed: 06/12/18 09:31> Subjective Progress Note Date: 06/12/18 CHIEF COMPLAINT: abdominal pain HISTORY OF PRESENT ILLNESS: Patient examined this morning at the bedside. Patient is status post lysis of adhesions, reduction of incarcerated umbilical hernia, and open laparotomy for reduction of entire small bowel volvulus and internal hernia. POD #2. Patient reports significant improvement in her pain today compared to yesterday. She is tolerating clear liquids. However she reports only consuming a small amount due to lack of appetite and feels like "things arent going through yet". Denies nausea or vomiting. Denies passing flatus. Denies BM. Patient has been ambulating in the hallway. Using incentive spirometer. Pulling 1500 mL. Catheter was discontinued yesterday. No difficulty voiding. Blood pressure this morning 96/60. Temperature 99.5. Patient reports feeling hot this morning. Noted thermostat in patient's room was turned to 78. Labs from this morning are pending. PHYSICAL EXAM: VITAL SIGNS: Reviewed. GENERAL: Well-developed in no acute distress. HEENT: No sclera icterus. Extraocular movements grossly intact. Moist buccal mucosa. Head is atraumatic, normocephalic. ABDOMEN: Soft. Nondistended. Midline dressing clean dry intact. Abdominal binder in place. NEUROLOGIC: Alert and oriented. Cranial nerves II through XII grossly intact. ASSESSMENT: 1. Abdominal pain 2. Internal hernia with small bowel obstruction 3. History of gastric bypass 4. History of prior surgery with risk of peritoneal adhesions 5. Morbid obesity due to excess calories, BMI 37.4 6. History of iron deficiency anemia 7. Status post lysis of adhesions, reduction of incarcerated umbilical hernia, and open laparotomy for reduction of entire small bowel volvulus and internal hernia PLAN: 1. Monitor blood pressure. Continue IV fluids at 100cc/hr. 2. Await lab results from this morning 3. Continue current liquid diet. Await bowel function 4. Encourage incentive spirometry 5. Continue clear liquid diet. Await bowel function 6. Activity as tolerated 7. Pain control. 8. Begin Reglan 10 mg IV every 6 hours 9. Continue IV iron supplementation Nurse practitioner note has been reviewed by physician. Signing provider agrees with the documented findings, assessment, and plan of care. Objective - Vital Signs Vital signs: Vital Signs Temp 99.5 F 06/12/18 07:00 Pulse 90 06/12/18 07:00 Resp 12 06/12/18 07:00 BP 96/60 06/12/18 07:00 Pulse Ox 95 06/12/18 07:00 Intake & Output 06/11/18 06/12/18 06/12/18 18:59 06:59 18:59 Intake Total 660 1150 240 Output Total 700 700 Balance -40 450 240 Intake: Intake, IV Titration 900 Amount 0.9% NaCl with KCl 20 Meq 800 /l 1,000 ml @ 100 mls/hr IV .Q10H NICOLETTE Rx#: [id number] Sodium Ferric Gluconat- 100 Sucrose 125 mg In Sodium Chloride 0.9% 100 ml @ 100 mls/hr IVPB DAILY NICOLETTE Rx#:[id number] Oral 660 250 240 Output: Urine 700 700 Uretheral (Mcdermott) 300 Other: Voiding Method Toilet Toilet # Voids 1 2 - Labs CBC & Chem 7: 06/11/18 07:30 06/11/18 07:30 Labs: Abnormal Lab Results - Last 24 Hours (Table) 06/11/18 Range/Units 07:30 Iron 9 L (50-170) ug/dL Iron Saturation 3.93 L (12.00-45.00) Assessment and Plan (1) Small bowel volvulus Current Visit: Yes Status: Acute Code(s): K56.2 - VOLVULUS SNOMED Code(s): 051989674 (2) BMI 37.0-37.9, adult Current Visit: Yes Status: Acute Code(s): Z68.37 - BODY MASS INDEX (BMI) 37.0-37.9, ADULT SNOMED Code(s): 701283231 (3) History of Guillermina-en-Y gastric bypass Current Visit: Yes Status: Acute Code(s): Z98.84 - BARIATRIC SURGERY STATUS SNOMED Code(s): 674458860 (4) Internal hernia Current Visit: Yes Status: Acute Code(s): K45.8 - OTH ABDOMINAL HERNIA WITHOUT OBSTRUCTION OR GANGRENE SNOMED Code(s): 42985994 <Josh Mcclelland - Last Filed: 06/12/18 14:56> Subjective As above. Patient doing better today. Still feels bloated without flatus or bowel movement. Mild discomfort. Will increase diet to full liquids. Increase activity. Objective - Vital Signs Vital signs: Vital Signs Temp 99.5 F 06/12/18 07:00 Pulse 90 06/12/18 08:00 Resp 12 06/12/18 08:00 BP 96/60 06/12/18 07:00 Pulse Ox 95 06/12/18 07:00 Intake & Output 06/11/18 06/12/18 06/12/18 18:59 06:59 18:59 Intake Total 660 1150 240 Output Total 700 700 Balance -40 450 240 Weight 84.007 kg Intake: Intake, IV Titration 900 Amount 0.9% NaCl with KCl 20 Meq 800 /l 1,000 ml @ 100 mls/hr IV .Q10H NICOLETTE Rx#: [id number] Sodium Ferric Gluconat- 100 Sucrose 125 mg In Sodium Chloride 0.9% 100 ml @ 100 mls/hr IVPB DAILY NICOLETTE Rx#:[id number] Oral 660 250 240 Output: Urine 700 700 Uretheral (Mcdermott) 300 Other: Voiding Method Toilet Toilet Toilet # Voids 1 2 - Labs CBC & Chem 7: 06/12/18 09:13 06/12/18 09:13 Labs: Abnormal Lab Results - Last 24 Hours (Table) 06/11/18 06/12/18 06/12/18 Range/Units 07:30 09:13 09:13 RBC 3.34 L (3.80-5.40) m/uL Hgb 10.1 L (11.4-16.0) gm/dL Hct 31.0 L (34.0-46.0) % Chloride 112 H (98-107) mmol/L Carbon Dioxide 21 L (22-30) mmol/L BUN 5 L (7-17) mg/dL Creatinine 0.48 L (0.52-1.04) mg/dL Calcium 7.6 L (8.4-10.2) mg/dL Iron 9 L (50-170) ug/dL Iron Saturation 3.93 L (12.00-45.00) AST 11 L (14-36) U/L Total Protein 4.9 L (6.3-8.2) g/dL Albumin 2.5 L (3.5-5.0) g/dL
[2018-06-12 09:52] LABS: Basophils % (A) 0 %; Eosinophils # (A) 0.2 k/uL (0-0.7); Eosinophils % (A) 3 %; HGB 10.1 gm/dL (11.4-16.0); Lymphocytes % (A) 15 %; MCH 30.3 pg (25.0-35.0); MCHC 32.6 g/dL (31.0-37.0); Mean Platelet Volume 8.9; Monocytes # (A) 0.2 k/uL (0-1.0); Monocytes % (A) 3 %; Neutrophils # (A) 5.5 k/uL (1.3-7.7); Neutrophils % (A) 79 %; Platelet Count 169 k/uL (150-450); RBC 3.34 m/uL (3.80-5.40); RDW 13.1 % (11.5-15.5)
[2018-06-12] MEDS: ENOXAPARIN 40 MG/0.4 ML SYRINGE SQ SCH (09:57)
[2018-06-12] MEDS: SODIUM FERRIC GLUCONAT-SUCROSE 125 MG in SODIUM CHLORIDE 0.9% 100 ML IVPB SCH (09:57)
[2018-06-12] MEDS: ACETAMINOPHEN TAB 325 MG TAB PO PRN ×2 (09:58→18:11)
[2018-06-12 10:07] LABS: ALT 20 U/L (9-52); AST 11 U/L (14-36); Albumin 2.5 g/dL (3.5-5.0); Alkaline Phosphatase 47 U/L (38-126); Anion Gap 4 mmol/L; Blood Urea Nitrogen 5 mg/dL (7-17); Calcium 7.6 mg/dL (8.4-10.2); Carbon Dioxide 21 mmol/L (22-30); Chloride 112 mmol/L (98-107); Glucose 82 mg/dL (74-99); Magnesium 1.7 mg/dL (1.6-2.3); Potassium 4.1 mmol/L (3.5-5.1); Sodium 137 mmol/L (137-145); Total Bilirubin 0.6 mg/dL (0.2-1.3); Total Protein 4.9 g/dL (6.3-8.2)
[2018-06-12] MEDS: SODIUM CHLORIDE 0.9% 1,000 ML IV SCH ×2 (12:16→19:22)
[2018-06-12] MEDS: METOCLOPRAMIDE 5 MG/ML 2 ML VIAL IVP SCH ×2 (12:28→18:09)
[2018-06-12 14:32] VITALS: BMI 37.4
[2018-06-13] MEDS: MORPHINE SULFATE 4 MG/ML SYRINGE IVP PRN ×5 (00:41→21:54)
[2018-06-13] MEDS: SIMETHICONE 40 MG/0.6 ML DROPS 2,000 MG/30 ML BOTTLE PO SCH ×4 (00:41→17:38)
[2018-06-13] MEDS: METOCLOPRAMIDE 5 MG/ML 2 ML VIAL IVP SCH ×4 (00:41→17:38)
[2018-06-13] MEDS: SODIUM CHLORIDE 0.9% 1,000 ML IV SCH ×2 (00:42→17:40)
[2018-06-13] MEDS: 0.9% NACL WITH KCL 20 MEQ/L 1,000 ML IV SCH ×2 (05:07→20:02)
[2018-06-13] MEDS: ENOXAPARIN 40 MG/0.4 ML SYRINGE SQ SCH (09:57)
[2018-06-13] MEDS: ACETAMINOPHEN TAB 325 MG TAB PO PRN ×3 (09:57→21:53)
[2018-06-13] MEDS: SODIUM FERRIC GLUCONAT-SUCROSE 125 MG in SODIUM CHLORIDE 0.9% 100 ML IVPB SCH (09:57)
--- NOTE | 2018-06-13 10:19 | P.PN ---
Subjective Progress Note Date: 06/13/18 Principal diagnosis: Small bowel volvulus Patient doing better today. Still no flatus. Feels bloated but pain is improved. Tolerating diet. Objective - Vital Signs Vital signs: Vital Signs Temp 98.1 F 06/13/18 07:40 Pulse 80 06/13/18 07:40 Resp 15 06/13/18 07:40 BP 101/67 06/13/18 07:40 Pulse Ox 99 06/13/18 07:40 Intake & Output 06/12/18 06/13/18 06/13/18 18:59 06:59 18:59 Intake Total 1040 800 240 Output Total 600 500 Balance 440 300 240 Weight 84.007 kg Intake: Intake, IV Titration 800 Amount 0.9% NaCl with KCl 20 Meq 800 /l 1,000 ml @ 100 mls/hr IV .Q10H NICOLETTE Rx#: [id number] Oral 1040 240 Output: Urine 600 500 Other: Voiding Method Toilet # Voids 1 - Exam Abdomen: Soft, mild distention, mild tenderness, incisions clean and dry - Labs CBC & Chem 7: 06/12/18 09:13 06/12/18 09:13 Assessment and Plan (1) Small bowel obstruction Narrative/Plan: Patient doing better today. Continue liquid diet. Ambulate. Probable discharge tomorrow. Current Visit: Yes Status: Acute Code(s): K56.609 - UNSP INTESTNL OBST, UNSP TO PARTIAL VERSUS COMPLETE OBST SNOMED Code(s): 453313050
[2018-06-14] MEDS: SIMETHICONE 40 MG/0.6 ML DROPS 2,000 MG/30 ML BOTTLE PO SCH ×3 (00:06→11:15)
[2018-06-14] MEDS: SODIUM CHLORIDE 0.9% 1,000 ML IV SCH ×2 (00:07→07:20)
[2018-06-14] MEDS: METOCLOPRAMIDE 5 MG/ML 2 ML VIAL IVP SCH ×3 (00:07→11:15)
[2018-06-14] MEDS: ACETAMINOPHEN TAB 325 MG TAB PO PRN (03:43)
[2018-06-14] MEDS: 0.9% NACL WITH KCL 20 MEQ/L 1,000 ML IV SCH (03:43)
[2018-06-14] MEDS: ENOXAPARIN 40 MG/0.4 ML SYRINGE SQ SCH (07:20)
[2018-06-14 07:35] VITALS: BP 118/82; PULSE 55; RESP 15; TEMP 97.7
--- NOTE | 2018-06-14 09:57 | P.DS ---
Providers Date of admission: 06/08/18 14:23 Expected date of discharge: 06/14/18 Attending physician: Komal Ceballos Primary care physician: Stated None - Discharge Diagnosis(es) (1) Small bowel obstruction Patient is admitted to the hospital as an outpatient by Dr. Moe. She was found to have evidence of internal herniation post-bypass on CAT scan. Last Friday the patient underwent exploratory laparotomy with correction of small bowel volvulus. Postoperative issues done well although did have an ileus that was slow to improve. Yesterday she began having flatus and is tolerating diet well at this time. Her pain is much improved. She would like to go home today. Her incision is clean and dry. Plan discharge today on a full liquid diet which she will gradually increase as an outpatient. Follow-up on Friday with Dr. Moe. Current Visit: Yes Status: Acute Plan - Discharge Summary Discharge Rx Participant: No New Discharge Prescriptions: No Action Multivitamin with Iron [Multivitamins with Iron] 1 each PO DAILY Ferrous Sulfate [Iron (65 MG Elemental)] 325 mg PO DAILY Calcium Carbonate [Calcium] 600 mg PO DAILY Discharge Medication List Multivitamin with Iron [Multivitamins with Iron] 1 each PO DAILY 06/17/17 [History] Calcium Carbonate [Calcium] 600 mg PO DAILY 06/08/18 [History] Ferrous Sulfate [Iron (65 MG Elemental)] 325 mg PO DAILY 06/08/18 [History] Follow up Appointment(s)/Referral(s): Komal Ceballos MD [STAFF PHYSICIAN] - 06/16/18 1:15 pm
--- NOTE | 2018-06-16 09:11 | CDI ---
Documentation Clarification Form Date: 06/16/18 From: Humaira Perdue Phone: If you have a question regarding this query, please contact Tahmina Whyte at [phone] between 8am and 5pm. Admit Date: 06/08/2018 2:23:00 PM Patient Name: Sofia Harrington Visit Number: [id number] Discharge Date: 06/14/2018 11:53:00 AM ATTENTION: The Clinical Documentation Specialists (CDI) and [facility] Coding Staff appreciate your assistance in clarifying documentation. Please respond to the clarification below the line at the bottom and electronically sign. The CDI & [facility] Coding staff will review the response and follow-up if needed. Please note: Queries are made part of the Legal Health Record. If you have any questions, please contact the author of this message via ITS. Dr. Komal Ceballos The patient presented with incarcerated umbilical hernia, complete small bowel volvulus into jejunojejunostomy internal hernia and adhesions. Documentation in your procedure note states that the distal small bowel was initially mildly ischemic without infarction History/Risk Factors: Her history is significant for gastric bypass. She also has a history of morbid obesity. Clinical Indicators: Severe abdominal pain Lab findings: CBC within normal limits on admission. Creatinine 0.50, total protein 6.1, amylase <30 Radiology findings: Vital Signs: Treatment: Repair of the incarcerated umbilical hernia and the internal hernia and volvulus. In your professional opinion, can you please clarify the bowel ischemia? Acute Chronic Other, please specify Unable to determine Acute bowel ischemia. see addendum prog note MTDD
== END 2018-06-14 11:53 | disposition home or self-care (01) | DRG 353 ==
LOC: 4SSUR 14:23
PROVIDERS: ADMIT Surgery Plastic and Reconstructive Surgery; ATTEND Surgery Plastic and Reconstructive Surgery
PROC: 0WQF4ZZ Repair Abdominal Wall, Percutaneous Endoscopic Approach (ICD-10-PCS; principal; 2018-06-08)
PROC: 0DQV0ZZ Repair Mesentery, Open Approach (ICD-10-PCS; 2018-06-08)
PROC: 8E0W4CZ Robotic Assisted Procedure of Trunk Region, Percutaneous Endoscopic Approach (ICD-10-PCS; 2018-06-08)
DX: K46.0 Unspecified abdominal hernia with obstruction, without gangrene (principal); K56.2 Volvulus; K55.019 Acute (reversible) ischemia of small intestine, extent unspecified; K56.7 Ileus, unspecified; R18.8 Other ascites; K42.0 Umbilical hernia with obstruction, without gangrene; E66.01 Morbid (severe) obesity due to excess calories; I95.9 Hypotension, unspecified; B96.81 Helicobacter pylori [H. pylori] as the cause of diseases classified elsewhere; D50.8 Other iron deficiency anemias; G47.33 Obstructive sleep apnea (adult) (pediatric); J45.909 Unspecified asthma, uncomplicated; K29.00 Acute gastritis without bleeding; G43.909 Migraine, unspecified, not intractable, without status migrainosus; D50.9 Iron deficiency anemia, unspecified; E28.2 Polycystic ovarian syndrome; Z68.37 Body mass index [BMI] 37.0-37.9, adult; Z98.84 Bariatric surgery status; Z90.49 Acquired absence of other specified parts of digestive tract; Z98.51 Tubal ligation status; Z88.5 Allergy status to narcotic agent; Z88.0 Allergy status to penicillin; Z82.49 Family history of ischemic heart disease and other diseases of the circulatory system; Z83.3 Family history of diabetes mellitus
CPT/HCPCS: 74177; 80051; 80053; 81001; 81025; 82150; 82310; 82565; 82728; 83540; 83550; 83690; 83735; 84100; 84520; 85025; 85610; 85730; 88305; 94760; 94762

== ENCOUNTER → 2018-06-17 | Outpatient (CLI) | payer OTHER ==
[2018-06-17] MEDS: SODIUM CHLORIDE 0.9% 1,000 ML IV SCH ×2 (13:50→15:00)
[2018-06-17 13:54] VITALS: BP 115/79; PULSE 73; RESP 16; TEMP 98.1
== END | disposition home or self-care (01) ==
LOC: PROCWHC3 13:35
PROVIDERS: ATTEND Surgery Plastic and Reconstructive Surgery
DX: E86.0 Dehydration (principal)
CPT/HCPCS: 96360; 96361

== ENCOUNTER → 2018-06-25 | Outpatient (CLI) | payer OTHER ==
[2018-06-25 10:39] VITALS: BP 102/71; PULSE 65; RESP 16; TEMP 97.9; BMI 29.4
--- NOTE | 2018-06-25 11:06 | P.PN ---
Subjective Progress Note Date: 06/25/18 HPI: She is doing well. She reports occassional pain of the abdomen. She has lost over 100+ pounds. Highest weight 334 pounds. In 5 months, she went down from 182 pounds to 177 pounds. ABDOMEN: Midline incisions intact. No cellulitis. Has panniculitis ASSESSMENT: 1. Morbid obesity PLAN: 1. Doing well 2. Follow up in 1 month 3. Labs for 1 year Objective - Vital Signs Vital signs: Vital Signs Temp 97.9 F 06/25/18 10:36 Pulse 65 06/25/18 10:36 Resp 16 06/25/18 10:36 BP 102/71 06/25/18 10:36 Pulse Ox Intake & Output 06/24/18 06/25/18 06/25/18 18:59 06:59 18:59 Weight 80.286 kg
[2018-06-25 13:04] LABS: MCH 29.4 pg (25.0-35.0); MCHC 30.9 g/dL (31.0-37.0); MCV 95.1 fL (80.0-100.0); Mean Platelet Volume 8.9; Platelet Count 221 k/uL (150-450); RBC 4.83 m/uL (3.80-5.40); RDW 13.7 % (11.5-15.5)
[2018-06-25 13:12] LABS: HGB 14.2 gm/dL (11.4-16.0)
[2018-06-25 13:28] LABS: INR 0.9 (<1.2); Partial Thromboplastin Time 23.8 sec (22.0-30.0); Prothrombin Time 9.9 sec (9.0-12.0)
[2018-06-25 18:12] LABS: Parathyroid Hormone Intact 39.4 pg/mL (14.0-72.0)
[2018-06-25 18:40] LABS: African American GFR (CKD) 131.2 (60.0-200.0); Albumin 4.2 g/dL (3.80-4.90); Anion Gap 7.1 mmol/L (4.00-12.00); Carbon Dioxide 25.9 mmol/L (21.6-31.8); Globulin 2.1 g/dL (1.6-3.3); LDL Cholesterol,Calculated 117.8 mg/dL (0.0-131.0); Potassium 4.2 mmol/L (3.5-5.5); Total Bilirubin 0.4 mg/dL (0.3-1.2); Total Protein 6.3 g/dL (6.2-8.2); VLDL Calculation 22.2 mg/dL (5.00-40.00)
[2018-06-25 18:41] LABS: Phosphorus 4.8 mg/dL (2.4-5.1)
[2018-06-25 18:54] LABS: Folate, Serum 9.7 ng/mL
[2018-06-25 19:03] LABS: Iron Saturation 17.28 (12.00-45.00)
[2018-06-25 22:13] LABS: Hemoglobin A1C 5.2 % (4.0-6.0)
[2018-06-26 12:13] LABS: Zinc, Serum 76 ug/dL (60-130)
[2018-06-27 19:33] LABS: Selenium 99 mcg/L (63-160)
[2018-06-29 07:40] LABS: Vit B1(Thiamine) 68 ug/L (38-122)
[2018-06-29 08:30] LABS: Vitamin A 51 ug/dL (38-106)
== END | disposition home or self-care (01) ==
LOC: BARWHC3 10:05
PROVIDERS: ATTEND Surgery Plastic and Reconstructive Surgery
DX: E66.01 Morbid (severe) obesity due to excess calories (principal); E21.1 Secondary hyperparathyroidism, not elsewhere classified; E89.1 Postprocedural hypoinsulinemia; D50.9 Iron deficiency anemia, unspecified; K90.9 Intestinal malabsorption, unspecified; E55.9 Vitamin D deficiency, unspecified; K76.9 Liver disease, unspecified; N19 Unspecified kidney failure; K50.90 Crohn's disease, unspecified, without complications; Z68.29 Body mass index [BMI] 29.0-29.9, adult
CPT/HCPCS: 84255; 84134; 84425; 80061; 80053; 82607; 82728; 82525; 82746; 83540; 83550; 83735; 84100; 84590; 84630; 85027; 85610; 85730; 83970; 83036; 97803; G0463; 99211

== ENCOUNTER 2018-08-18 17:58 | Observation (INO) | payer OTHER ==
[2018-08-18] MEDS ORDERED: SODIUM CHLORIDE 0.9% 500 ML 500 ML IV STA (18:21)
[2018-08-18 18:57] LABS: Basophils % (A) 0 %; Eosinophils # (A) 0.2 k/uL (0-0.7); Eosinophils % (A) 2 %; HCT 36.4 % (34.0-46.0); HGB 11.7 gm/dL (11.4-16.0); Lymphocytes % (A) 19 %; MCH 29.8 pg (25.0-35.0); MCHC 32.2 g/dL (31.0-37.0); MCV 92.7 fL (80.0-100.0); Mean Platelet Volume 7.9; Monocytes # (A) 0.3 k/uL (0-1.0); Monocytes % (A) 3 %; Neutrophils # (A) 7.6 k/uL (1.3-7.7); Neutrophils % (A) 74 %; Platelet Count 268 k/uL (150-450); RBC 3.92 m/uL (3.80-5.40); RDW 12.8 % (11.5-15.5); WBC 10.4 k/uL (3.8-10.6)
[2018-08-18 19:11] LABS: ALT 16 U/L (9-52); AST 18 U/L (14-36); African American GFR (CKD) >90 (>60 ml/min/1.73 sqM); Albumin 3.6 g/dL (3.5-5.0); Alkaline Phosphatase 70 U/L (38-126); Anion Gap 7 mmol/L; Blood Urea Nitrogen 12 mg/dL (7-17); Calcium 8.5 mg/dL (8.4-10.2); Carbon Dioxide 25 mmol/L (22-30); Chloride 107 mmol/L (98-107); Glucose 105 mg/dL (74-99); Potassium 3.8 mmol/L (3.5-5.1); Sodium 139 mmol/L (137-145); Total Bilirubin 0.7 mg/dL (0.2-1.3); Total Protein 6.4 g/dL (6.3-8.2)
--- NOTE | 2018-08-18 19:19 | ED ---
Abdominal Pain HPI - General Chief Complaint: Abdominal Pain Stated Complaint: incision opening Time Seen by Provider: 08/18/18 18:15 Source: patient, RN notes reviewed Mode of arrival: ambulatory Limitations: no limitations - History of Present Illness Initial Comments: This a 43-year-old female presents emergency Department chief complaint of lower abdominal pain, abscess. Patient states that she has some irritation over the last day or so but states that "with purulent drainage today. Patient states that she has pain surrounding the site with increasing redness. Patient states she is, feels ill. Patient states she hadn't open laparotomy for bowel obstruction in May by Dr. Moe. Patient states that she had fully healed incision up until today. Patient reports slight nausea no vomiting no diarrhea no constipation. Patient did contact surgeon's office who recommended come emergency department. - Related Data Home Medications Medication Instructions Recorded Confirmed Ferrous Sulfate [Iron (65 MG 325 mg PO DAILY 06/08/18 08/18/18 Elemental)] Albuterol Inhaler [Ventolin Hfa 1 - 2 puff INHALATION RT-Q6H PRN 08/18/18 08/18/18 Inhaler] Multivitamins, Thera [Multivitamin 1 tab PO DAILY 08/18/18 08/18/18 (formulary)] Vitamin D3(Unknown Dose) 1 tab PO DAILY 08/18/18 08/18/18 Previous Rx's Medication Instructions Recorded Butalb/APAP/Caff 50-325-40Mg 1 tab PO Q4H PRN #18 tablet 06/16/18 [Fioricet 50-325-40] Allergies Allergy/AdvReac Type Severity Reaction Status Date / Time hydromorphone [From Dilaudid] Allergy Swelling Verified 08/18/18 18:43 Penicillins Allergy Unknown Verified 08/18/18 18:43 Childhood Review of Systems ROS Statement: Those systems with pertinent positive or pertinent negative responses have been documented in the HPI. ROS Other: All systems not noted in ROS Statement are negative. Past Medical History Past Medical History: Asthma, Sleep Apnea/CPAP/BIPAP Additional Past Medical History / Comment(s): Uses C-Pap, Poly Cystic Ovarian Syndrome, Migraine Headaches 4-5x/week, H-Pylori Positive per EGD specimen, Post op fluid collection (seroma) gastric bypass. DEHYDRATION, bowel obstruction History of Any Multi-Drug Resistant Organisms: None Reported Past Surgical History: Appendectomy, Bariatric Surgery, Bowel Resection, Section, Cholecystectomy, Hernia Repair, Orthopedic Surgery, Tubal Ligation Additional Past Surgical History / Comment(s): x3: 1999, 2002, 2009; Bilateral Carpal Tunnel 2013; gastric bypass sx 05-26-17 (Dr. Ceballos), small bowel obstruction and hernia repair, umbilical hernia repair Past Anesthesia/Blood Transfusion Reactions: No Reported Reaction Past Psychological History: No Psychological Hx Reported Smoking Status: Never smoker Past Alcohol Use History: None Reported Past Drug Use History: None Reported - Past Family History Father Family Medical History: Congestive Heart Failure (CHF), Coronary Artery Disease (CAD), Diabetes Mellitus Additional Family Medical History / Comment(s): at age 66 from heart failure Mother Family Medical History: Coronary Artery Disease (CAD), Diabetes Mellitus, Vascular Disorder Additional Family Medical History / Comment(s): Type II DM, General Exam Limitations: no limitations General appearance: alert, in no apparent distress Head exam: Present: atraumatic, normocephalic, normal inspection Neck exam: Present: normal inspection, full ROM. Absent: tenderness, meningismu s, lymphadenopathy Respiratory exam: Present: normal lung sounds bilaterally. Absent: respiratory distress, wheezes, rales, rhonchi, stridor Cardiovascular Exam: Present: regular rate, normal rhythm, normal heart sounds. Absent: systolic murmur, diastolic murmur, rubs, gallop, clicks GI/Abdominal exam: Present: soft, tenderness (Mild tenderness in the lower abdomen), normal bowel sounds, other (Open wound, abscess noted to the lower abdomen along old surgical scar, induration, tenderness). Absent: distended, guarding, rebound, rigid Neurological exam: Present: alert, oriented X3, CN II-XII intact, reflexes normal. Absent: motor sensory deficit Skin exam: Present: warm, dry, intact, normal color. Absent: rash Course Vital Signs 08/18/18 18:07 Temperature 98.8 F Pulse Rate 87 Respiratory 18 Rate Blood Pressure 106/70 O2 Sat by Pulse 97 Oximetry Medical Decision Making - Medical Decision Making 43-year-old female presented from for lower abdominal incision opening. There is an open area with purulent drainage. Patient CT shows extensive cellulitis and possible abscess. Patient was started on antibiotics. Case discussed with her surgeon Dr. Ceballos who will admit the patient - Lab Data Result diagrams: 08/18/18 18:50 08/18/18 18:50 Lab Results 08/18/18 08/18/18 08/18/18 Range/Units 18:50 18:50 18:50 WBC 10.4 (3.8-10.6) k/uL RBC 3.92 (3.80-5.40) m/uL Hgb 11.7 (11.4-16.0) gm/dL Hct 36.4 (34.0-46.0) % MCV 92.7 (80.0-100.0) fL MCH 29.8 (25.0-35.0) pg MCHC 32.2 (31.0-37.0) g/dL RDW 12.8 (11.5-15.5) % Plt Count 268 (150-450) k/uL Neutrophils % 74 % Lymphocytes % 19 % Monocytes % 3 % Eosinophils % 2 % Basophils % 0 % Neutrophils # 7.6 (1.3-7.7) k/uL Lymphocytes # 2.0 (1.0-4.8) k/uL Monocytes # 0.3 (0-1.0) k/uL Eosinophils # 0.2 (0-0.7) k/uL Basophils # 0.0 (0-0.2) k/uL Sodium 139 (137-145) mmol/L Potassium 3.8 (3.5-5.1) mmol/L Chloride 107 (98-107) mmol/L Carbon Dioxide 25 (22-30) mmol/L Anion Gap 7 mmol/L BUN 12 (7-17) mg/dL Creatinine 0.55 (0.52-1.04) mg/dL Est GFR (CKD-EPI)AfAm >90 (>60 ml/min/1.73 sqM) Est GFR (CKD-EPI)NonAf >90 (>60 ml/min/1.73 sqM) Glucose 105 H (74-99) mg/dL Plasma Lactic Acid Uli 0.7 (0.7-2.0) mmol/L Calcium 8.5 (8.4-10.2) mg/dL Total Bilirubin 0.7 (0.2-1.3) mg/dL AST 18 (14-36) U/L ALT 16 (9-52) U/L Alkaline Phosphatase 70 (38-126) U/L Total Protein 6.4 (6.3-8.2) g/dL Albumin 3.6 (3.5-5.0) g/dL Urine Color Urine Appearance (Clear) Urine pH (5.0-8.0) Urine Protein (Negative) Urine Glucose (UA) (Negative) Urine Ketones (Negative) Urine Blood (Negative) Urine Nitrite (Negative) Urine Bilirubin (Negative) Urine Urobilinogen (<2.0) mg/dL Ur Leukocyte Esterase (Negative) Urine RBC (0-5) /hpf Urine WBC (0-5) /hpf Ur Squamous Epith Cells (0-4) /hpf Urine Mucus (None) /hpf 08/18/18 Range/Units 19:15 WBC (3.8-10.6) k/uL RBC (3.80-5.40) m/uL Hgb (11.4-16.0) gm/dL Hct (34.0-46.0) % MCV (80.0-100.0) fL MCH (25.0-35.0) pg MCHC (31.0-37.0) g/dL RDW (11.5-15.5) % Plt Count (150-450) k/uL Neutrophils % % Lymphocytes % % Monocytes % % Eosinophils % % Basophils % % Neutrophils # (1.3-7.7) k/uL Lymphocytes # (1.0-4.8) k/uL Monocytes # (0-1.0) k/uL Eosinophils # (0-0.7) k/uL Basophils # (0-0.2) k/uL Sodium (137-145) mmol/L Potassium (3.5-5.1) mmol/L Chloride (98-107) mmol/L Carbon Dioxide (22-30) mmol/L Anion Gap mmol/L BUN (7-17) mg/dL Creatinine (0.52-1.04) mg/dL Est GFR (CKD-EPI)AfAm (>60 ml/min/1.73 sqM) Est GFR (CKD-EPI)NonAf (>60 ml/min/1.73 sqM) Glucose (74-99) mg/dL Plasma Lactic Acid Uli (0.7-2.0) mmol/L Calcium (8.4-10.2) mg/dL Total Bilirubin (0.2-1.3) mg/dL AST (14-36) U/L ALT (9-52) U/L Alkaline Phosphatase (38-126) U/L Total Protein (6.3-8.2) g/dL Albumin (3.5-5.0) g/dL Urine Color Yellow Urine Appearance Clear (Clear) Urine pH 6.0 (5.0-8.0) Urine Protein Negative (Negative) Urine Glucose (UA) Negative (Negative) Urine Ketones Negative (Negative) Urine Blood Small H (Negative) Urine Nitrite Negative (Negative) Urine Bilirubin Negative (Negative) Urine Urobilinogen 4.0 (<2.0) mg/dL Ur Leukocyte Esterase Negative (Negative) Urine RBC 1 (0-5) /hpf Urine WBC <1 (0-5) /hpf Ur Squamous Epith Cells 1 (0-4) /hpf Urine Mucus Rare H (None) /hpf Disposition Clinical Impression: Abdominal abscess, Wound dehiscence Disposition: ADMITTED IP TO THIS HOSP Condition: Fair Referrals: Antoine Morales MD [Primary Care Provider] - 1-2 days
--- NOTE | 2018-08-18 19:32 | CT ---
EXAMINATION TYPE: CT abdomen pelvis w con DATE OF EXAM: 08/18/2018 COMPARISON: 06/08/2018 HISTORY: Pt had open laparatomy on June 10 to untwist bowel, hernia repair. Experiencing swelling, redness and discharge from incision site CT DLP: 1101.3 mGycm Automated exposure control for dose reduction was used. TECHNIQUE: Helical acquisition of images was performed from the lung bases through the pelvis. CONTRAST: Performed without Oral Contrast and with IV Contrast, patient injected with 100 mL of Isovue 300. FINDINGS: Lung bases are clear. There is no pleural effusion. There are clips from apparent bariatric surgery o n the stomach. Liver shows no focal defect. Spleen appears normal. There is no evidence of pancreatic mass. There are clips from cholecystectomy. The bile ducts are not dilated. There is no adrenal mass. Kidneys show satisfactory contrast opacification. There is no hydronephrosi s. There is no retroperitoneal adenopathy. Uterus is anteverted. Bladder distends smoothly. There is no free fluid in the pelvis. There is no sign of a pelvic mass. There is no free air. There is no ascites. There is no mesenteric edema. There is no sign of a bowel obstruction. There is extensive subcutaneous edema over the lower anterior abdomen with some fluid in the midline anterior abdominal wall incision that measures up to 1.5 cm in thickness. Lumbar vertebra have normal spacing and alignment. There is 5% depression of the superior endplate of T11. Unchanged. I see no focal bone destruction. IMPRESSION: THERE IS EXTENSIVE SUBCUTANEOUS EDEMA OVER THE LOWER ANTERIOR ABDOMEN BILATERALLY CONSISTENT WITH JAD LULITIS THAT IS A CHANGE COMPARED TO OLD EXAM. THERE IS SOME FLUID IN THE MIDLINE ANTERIOR ABDOMEN IN CISION ABOVE THE UMBILICUS THAT IS NONSPECIFIC AND COULD RELATE TO SEROMA OR HEMATOMA OR ABSCESS.
[2018-08-18 19:47] LABS: Appearance,Urine Clear (Clear); Bilirubin,Urine Negative (Negative); Blood,Urine Small (Negative); Color,Urine Yellow; Glucose,Urine (UA) Negative (Negative); Ketones,Urine Negative (Negative); Leukocyte Esterase,Urine Negative (Negative); Mucus,Urine Rare /hpf; Nitrite,Urine Negative (Negative); Protein,Urine Negative (Negative); RBC,Urine 1 /hpf (0-5); Squamous Epithelial Cell,Urine 1 /hpf (0-4); WBC,Urine <1 /hpf (0-5)
[2018-08-18] MEDS ORDERED: cefTRIAXone IN SWFI 1,000 MG/10 ML SYRINGE IVP STA (19:52)
[2018-08-18] MEDS ORDERED: VANCOMYCIN IV PER PHARMACY 1 EACH MISC MISCELLANE PRN (19:52)
[2018-08-18] MEDS ORDERED: VANCOMYCIN 1,500 MG in SODIUM CHLORIDE 0.9% 250 ML IVPB STA (19:57)
[2018-08-18] MEDS ORDERED: ACETAMINOPHEN TAB 325 MG TAB PO PRN (20:00)
[2018-08-18] MEDS ORDERED: HYDROcodone/APAP 5-325MG 1 EACH TAB PO PRN (20:00)
[2018-08-18] MEDS ORDERED: ONDANSETRON 4 MG/2 ML VIAL IVP PRN (20:00)
[2018-08-19] MEDS: VANCOMYCIN 1,250 MG in SODIUM CHLORIDE 0.9% 250 ML IVPB SCH ×2 (07:14→15:18)
[2018-08-19] MEDS ORDERED: ceFAZolin IN SWFI 2 GM/20 ML SYRINGE IVP ONE (09:02)
--- NOTE | 2018-08-19 09:16 | P.GSHP ---
History of Present Illness H&P Date: 08/19/18 CHIEF COMPLAINT: Abdominal wall cellulitis HISTORY OF PRESENT ILLNESS: The patient is a 43-year-old female who 3 months ago had laparotomy for small bowel obstruction due to small bowel volvulus. She had completely healed within 1 month. In fact, she reports going to [place] 2 weeks ago. She reports at the midabdomen at the belt line, she had moderate swelling and perspiration including along the pannus. She had spontaneous swelling of her pannus. No pain. When she came back 1 week ago, she reported new redness at the area of her incision which had been rubbing against her clothing. She had just seen her primary care provider on Friday, 3 days ago. No antibiotics were given. No fevers or chills. She did report mild redness at the rubbed area/belt line. Yesterday, she had spontaneous non-malodorous yellow clumpy drainage since her presentation to the ER. She does have baseline history of recurrent panniculitis. She has been started on vancomycin. PAST MEDICAL HISTORY: See list. PAST SURGICAL HISTORY: See list. MEDICATIONS: See list. ALLERGIES: See list. SOCIAL HISTORY: No illicit drug use FAMILY HISTORY: No reports of Crohn's disease or inflammatory bowel disease REVIEW OF ORGAN SYSTEMS: CONSTITUTIONAL: No fevers or chills. Intentional weight loss over 130 pounds. Her prior weight 321 pounds. EYES: Denies any trouble with vision. No glasses. HEENT: No difficulties with hearing. No nosebleeds. No difficulty swallowing. RESPIRATORY: Denies pneumonia. Denies any troubles with breathing or dyspnea on exertion. CARDIOVASCULAR: Denies any chest pain, palpitations, or recent heart attacks. GASTROINTESTINAL: Denies fatty food intolerance. Recent small bowel obstruction. History of H. pylori gastritis GENITOURINARY: Denies any blood in urine or increased urinary frequency. NEUROLOGICAL: Denies any numbness or tingling along the distal extremities. No seizure disorders or headaches. MUSCULOSKELETAL: Has back pain, stiffness or joint arthritis. SKIN: Severe panniculitis. PSYCHIATRIC: Denies current depression or suicidal thoughts. ENDOCRINE: Denies current thyroid disorders. Denies any blood sugar glucose intolerance. HEME/LYMPHATIC: Denies any lumps and bumps around the neck. No recent deep venous thrombosis. History of iron deficiency anemia ALLERGY/IMMUNOLOGY: No immunoglobulin therapy. No immune deficiencies. BREAST: Denies current breast lumps, pain or nipple discharge. PHYSICAL EXAM: VITALS: Reviewed CONSTITUTIONAL: Well developed and in no acute distress. EYES: Conjuctivae without sclera icterus. Pupils are equally round and reactive to light. Extraocular movements grossly intact. HEAD, EARS, NOSE, THROAT: Moist buccal mucosa. Head is atraumatic, normocephalic. Hears conversational speech. No nasal drainage. Good dentition. NECK: Supple. No JV distention. No thyroidomegaly. RESPIRATORY: Non-labored respirations and equal bilateral excursions. No gross wheezes. CARDIOVASCULAR: Regular rate and rhythm. Extremities without moderate edema. Palpable 2+ radial pulses. ABDOMEN: No hepatomegaly. Non-distended. 4 x 5 cm cellulitis at midline/beltine with yellow non-malodorous drainage. Soft, non-tender. LYMPH: No neck lymphadenopathy. MUSCULOSKELETAL: Gait within normal limits. Range of motion bilateral upper extremities within normal limits. Nail and fingers with good capillary refill. SKIN: Warm and well perfused with good skin turgor. NEUROLOGIC: Cranial nerves I through XII grossly intact. Sensation upper and extremities intact. No focal or lateralizing signs. PSYCH: Appropriate affect. Alert and oriented to person, place and time. Displays appropriate insight. CLINCAL LABS: Reviewed without leukocytosis. RADIOLOGY: Report reviewed with fluid collection along midline and anasarca of the pannus. IMAGING: Independently reviewed showing panniculitis. Lymphedema of the pannus. Inflammatory changes at the midline. No incisional hernia. ASSESSMENT: 1. Abdominal wall cellulitis, acute 2. Panniculitis 3. Lymphedema of the abdominal wall. PLAN: 1. Surgical drainage of abdominal wall cellulitis advised 2. NPO 3. Benefits and risk of surgery described. 4. She is currently on vancomycin per ER. Past Medical History Past Medical History: Asthma, Sleep Apnea/CPAP/BIPAP Additional Past Medical History / Comment(s): Uses C-Pap, Poly Cystic Ovarian Syndrome, Migraine Headaches 4-5x/week, H-Pylori Positive per EGD specimen, Post op fluid collection (seroma) gastric bypass. DEHYDRATION, bowel obstruction History of Any Multi-Drug Resistant Organisms: None Reported Past Surgical History: Appendectomy, Bariatric Surgery, Bowel Resection, Section, Cholecystectomy, Hernia Repair, Orthopedic Surgery, Tubal Ligation Additional Past Surgical History / Comment(s): x3: 1999, 2002, 2009; Bilateral Carpal Tunnel 2013; gastric bypass sx 05-26-17 (Dr. Ceballos), small bowel obstruction and hernia repair, umbilical hernia repair Past Anesthesia/Blood Transfusion Reactions: No Reported Reaction Past Psychological History: No Psychological Hx Reported Smoking Status: Never smoker Past Alcohol Use History: None Reported Past Drug Use History: None Reported - Past Family History Father Family Medical History: Congestive Heart Failure (CHF), Coronary Artery Disease (CAD), Diabetes Mellitus Additional Family Medical History / Comment(s): at age 66 from heart failure Mother Family Medical History: Coronary Artery Disease (CAD), Diabetes Mellitus, Vascular Disorder Additional Family Medical History / Comment(s): Type II DM, Medications and Allergies Home Medications Medication Instructions Recorded Confirmed Type Ferrous Sulfate [Iron (65 MG 325 mg PO DAILY 06/08/18 08/18/18 History Elemental)] Butalb/APAP/Caff 50-325-40Mg 1 tab PO Q4H PRN #18 tablet 06/16/18 08/18/18 Rx [Fioricet 50-325-40] Albuterol Inhaler [Ventolin Hfa 1 - 2 puff INHALATION RT-Q6H PRN 08/18/18 08/18/18 History Inhaler] Multivitamins, Thera [Multivitamin 1 tab PO DAILY 08/18/18 08/18/18 History (formulary)] Vitamin D3(Unknown Dose) 1 tab PO DAILY 08/18/18 08/18/18 History Allergies Allergy/AdvReac Type Severity Reaction Status Date / Time hydromorphone [From Dilaudid] Allergy Swelling Verified 08/18/18 18:43 Penicillins Allergy Unknown Verified 08/18/18 18:43 Childhood Surgical - Exam Vital Signs Temp Pulse Resp BP Pulse Ox 98.8 F 87 18 106/70 97 08/18/18 18:07 08/18/18 18:07 08/18/18 18:07 08/18/18 18:07 08/18/18 18:07 Results - Labs 08/18/18 18:50 08/18/18 18:50 Abnormal Lab Results - Last 24 Hours (Table) 08/18/18 08/18/18 Range/Units 18:50 19:15 Glucose 105 H (74-99) mg/dL Ur Specific [place] 1.050 H (1.001-1.035) Urine Blood Small H (Negative) Urine Mucus Rare H (None) /hpf Diabetes panel 08/18/18 Range/Units 18:50 Sodium 139 (137-145) mmol/L Potassium 3.8 (3.5-5.1) mmol/L Chloride 107 (98-107) mmol/L Carbon Dioxide 25 (22-30) mmol/L BUN 12 (7-17) mg/dL Creatinine 0.55 (0.52-1.04) mg/dL Glucose 105 H (74-99) mg/dL Calcium 8.5 (8.4-10.2) mg/dL AST 18 (14-36) U/L ALT 16 (9-52) U/L Alkaline Phosphatase 70 (38-126) U/L Total Protein 6.4 (6.3-8.2) g/dL Albumin 3.6 (3.5-5.0) g/dL Calcium panel 08/18/18 Range/Units 18:50 Calcium 8.5 (8.4-10.2) mg/dL Albumin 3.6 (3.5-5.0) g/dL Pituitary panel 08/18/18 Range/Units 18:50 Sodium 139 (137-145) mmol/L Potassium 3.8 (3.5-5.1) mmol/L Chloride 107 (98-107) mmol/L Carbon Dioxide 25 (22-30) mmol/L BUN 12 (7-17) mg/dL Creatinine 0.55 (0.52-1.04) mg/dL Glucose 105 H (74-99) mg/dL Calcium 8.5 (8.4-10.2) mg/dL Adrenal panel 08/18/18 Range/Units 18:50 Sodium 139 (137-145) mmol/L Potassium 3.8 (3.5-5.1) mmol/L Chloride 107 (98-107) mmol/L Carbon Dioxide 25 (22-30) mmol/L BUN 12 (7-17) mg/dL Creatinine 0.55 (0.52-1.04) mg/dL Glucose 105 H (74-99) mg/dL Calcium 8.5 (8.4-10.2) mg/dL Total Bilirubin 0.7 (0.2-1.3) mg/dL AST 18 (14-36) U/L ALT 16 (9-52) U/L Alkaline Phosphatase 70 (38-126) U/L Total Protein 6.4 (6.3-8.2) g/dL Albumin 3.6 (3.5-5.0) g/dL
[2018-08-19 11:55] LABS: Basophils % (A) 1 %; Eosinophils # (A) 0.2 k/uL (0-0.7); Eosinophils % (A) 3 %; HCT 34.6 % (34.0-46.0); HGB 11.1 gm/dL (11.4-16.0); Lymphocytes # (A) 1.7 k/uL (1.0-4.8); Lymphocytes % (A) 29 %; MCH 30.2 pg (25.0-35.0); MCHC 32.1 g/dL (31.0-37.0); MCV 93.9 fL (80.0-100.0); Mean Platelet Volume 8.3; Monocytes # (A) 0.2 k/uL (0-1.0); Monocytes % (A) 3 %; Neutrophils # (A) 3.6 k/uL (1.3-7.7); Neutrophils % (A) 63 %; Platelet Count 240 k/uL (150-450); RBC 3.69 m/uL (3.80-5.40); RDW 12.8 % (11.5-15.5); WBC 5.8 k/uL (3.8-10.6)
[2018-08-19] MEDS ORDERED: IV FLUID CONTINUATION 1,000 ML IV ONE (15:40)
[2018-08-19] MEDS ORDERED: LACTATED RINGERS 1,000 ML IV ONE (15:59)
[2018-08-19] MEDS ORDERED: ONDANSETRON 4 MG/2 ML VIAL IVP ONE (16:04)
[2018-08-19] MEDS ORDERED: PROPOFOL 10 MG/ML 20 ML VIAL IV ONE (16:36)
[2018-08-19] MEDS ORDERED: fentaNYL (PF) 50 MCG/ML 2 ML AMP ONE (16:36)
[2018-08-19] MEDS ORDERED: LIDOCAINE 1% INJ 10MG/ML (20 ML MDV) ONE (16:36)
[2018-08-19] MEDS ORDERED: MIDAZOLAM 2 MG/2 ML VIAL ONE (16:36)
[2018-08-19] MEDS ORDERED: LIDOCAINE 2%-EPI 1:100,000 20 ML VIAL SQ ONE (17:04)
--- NOTE | 2018-08-19 17:37 | P.OP ---
Date of Procedure: 08/19/18 Description of Procedure: SURGEON: ASHVIN MAYBERRY MD CERAMIC ARTIST: NONE. PREOPERATIVE DIAGNOSES: 1. Lower abdominal wall cellulitis, 4 x 4 cm 2. Panniculitis, moderate to severe with lymphedema 3. Status post massive weight loss, over 150 pounds POSTOPERATIVE DIAGNOSES: 1. Lower abdominal wall cellulitis, 4 x 4 cm 2. Panniculitis, moderate to severe with lymphedema 3. Status post massive weight loss, over 150 pounds OPERATION: 1. Open drainage of lower abdominal wall deep subcutaneous abscess, 4 x 4 x 4 cm 2. Placement of PREVENA wound vac, 13-cm Anesthesia: MAC, local Pathology: other (Aerobic and anaerobic cultures abdominal wall cellulitis) Condition: stable Disposition: floor Operative Findings: 1. 4 cm pocket mid lower abdomen drained and irrigated with 1000 mL normal saline 2. Fascia intact. 3. Cultures obtained informed 4. Small incision wound VAC 13 cm PREVENA placed INDICATIONS: The patient is a 43-year-old female who is 3 months out from prior exploratory laparotomy. She reports completely healing and recently developed severe panniculitis followed by cellulitis of the abdomen after having irritation along the skin. She had a CT of the abdomen and pelvis which demonstrated a complex abdominal wall seroma anterior to her fascia. Given the size of the abscess and her symptoms, surgical intervention was described. Benefits and risks were reviewed. Informed consent was obtained. DESCRIPTION OF PROCEDURE: Patient was brought to the operating room, laid in supine position. After adequate IV sedation, the borders of the abdominal wall cellulitis were marked using an indelible marker. The skin was localized with anesthetic. A lower midline incision was made into the skin. The wound was probed using hemostat into the deep subcutaneous tissue with cultures obtained. A Yankauer suction was placed and used to aspirate all quadrants of the abscess until the abdominal wall was completely deflated. The wound was irrigated with 1-L normal saline pulse lavage and left open. A 13-cm PREVENA wound vac was placed over the wound for drainage. An abdominal binder was placed. At the end of the procedure, needle, sponge and instrument count had been verified correct by the manager surgical. The patient was taken to the Postanesthesia Care Unit in stable condition. I personally called and spoke to her sister about the findings. She was pleased with the level of care.
[2018-08-20] MEDS: VANCOMYCIN 1,250 MG in SODIUM CHLORIDE 0.9% 250 ML IVPB SCH ×2 (00:43→09:04)
[2018-08-20 06:26] VITALS: BP 112/71; PULSE 53; RESP 20; TEMP 98.4
[2018-08-20] MEDS ORDERED: VANCOMYCIN TROUGH DUE 1 EACH MISC MISCELLANE ONE (07:00)
[2018-08-20 08:14] LABS: African American GFR (CKD) >90 (>60 ml/min/1.73 sqM)
--- NOTE | 2018-08-20 11:57 | P.DS ---
<Varsha Morin - Last Filed: 08/20/18 11:52> Providers Expected date of discharge: 08/20/18 - Discharge Diagnosis(es) (1) Seroma Status: Acute (2) Status post incision and drainage Status: Acute (3) Panniculitis Status: Acute (4) Abdominal wall cellulitis Status: Acute Hospital Course: The patient is a 43-year-old female who 3 months ago had laparotomy for small bowel obstruction due to small bowel volvulus. She had completely healed within 1 month. In fact, she reports going to [place] 2 weeks ago. She reports at the midabdomen at the belt line, she had moderate swelling and perspiration including along the pannus. She had spontaneous swelling of her pannus. No pain. When she came back 1 week ago, she reported new redness at the area of her incision which had been rubbing against her clothing. She had just seen her primary care provider on Friday, 3 days ago. No antibiotics were given. No fevers or chills. She did report mild redness at the rubbed area/belt line. Yesterday, she had spontaneous non-malodorous yellow clumpy drainage since her presentation to the ER. She does have baseline history of recurrent panniculitis. The patient underwent incision and drainage of abdominal wall seroma measuring [id number]. Cultures obtained. PREVENA wound system applied. Patient is doing well postoperatively. Her pain is controlled on oral medications. She is tolerating diet. Her vital signs have been stable. she is afebrile. white count is within normal limits. She is stable for discharge home today. No antibiotics prescribed at the time of discharge as patient is afebrile and WBC is normal. Will await culture results. She is to follow up with Dr. Ceballos in [address] ease see EMR for further hospital course details. Discharge Diagnosis: 1. Abdominal wall cellulitis, acute 2. Panniculitis 3. Lymphedema of the abdominal wall Nurse practitioner note has been reviewed by physician. Signing provider agrees with the documented findings, assessment, and plan of care. Patient Condition at Discharge: Stable Plan - Discharge Summary New Discharge Prescriptions: Continue Ferrous Sulfate [Iron (65 MG Elemental)] 325 mg PO DAILY Butalb/APAP/Caff 50-325-40Mg [Fioricet 50-325-40] 1 tab PO Q4H PRN #18 tablet PRN Reason: Headache Albuterol Inhaler [Ventolin Hfa Inhaler] 1 - 2 puff INHALATION RT-Q6H PRN PRN Reason: Shortness Of Breath Multivitamins, Thera [Multivitamin (formulary)] 1 tab PO DAILY Vitamin D3(Unknown Dose) 1 tab PO DAILY Discharge Medication List Ferrous Sulfate [Iron (65 MG Elemental)] 325 mg PO DAILY 06/08/18 [History] Butalb/APAP/Caff 50-325-40Mg [Fioricet 50-325-40] 1 tab PO Q4H PRN #18 tablet 06/16/18 [Rx] Albuterol Inhaler [Ventolin Hfa Inhaler] 1 - 2 puff INHALATION RT-Q6H PRN 08/18/18 [History] Multivitamins, Thera [Multivitamin (formulary)] 1 tab PO DAILY 08/18/18 [History] Vitamin D3(Unknown Dose) 1 tab PO DAILY 08/18/18 [History] Follow up Appointment(s)/Referral(s): Anotine Morales MD [Primary Care Provider] - 1-2 days Komal Ceballos MD [STAFF PHYSICIAN] - 08/25/18 Patient Instructions/Handouts: Cellulitis (DC) Activity/Diet/Wound Care/Special Instructions: Light activity Sponge bath or shower if abdominal region is covered. No tub baths or soaking Tylenol as needed for pain Discharge Disposition: HOME SELF-CARE <Komal Ceballos - Last Filed: 08/20/18 18:21> Providers Date of admission: 08/18/18 20:00 Attending physician: Komal Ceballos Primary care physician: [facility] Course: Patient clinically stable for discharge. Will remove PREVENA wound vac in office.
== END 2018-08-20 12:51 | disposition home or self-care (01) ==
LOC: EC 17:58 → INTOOBSV 20:00 → 4MS4W 20:00 → UNDODISIN 08-20 12:51
PROVIDERS: ADMIT Surgery Plastic and Reconstructive Surgery; ATTEND Surgery Plastic and Reconstructive Surgery
PROC: 0W9F00Z Drainage of Abdominal Wall with Drainage Device, Open Approach (ICD-10-PCS; principal; 2018-08-19 16:30)
DX: L03.311 Cellulitis of abdominal wall (principal); L76.34 Postprocedural seroma of skin and subcutaneous tissue following other procedure; T81.30XA Disruption of wound, unspecified, initial encounter; G47.30 Sleep apnea, unspecified; Z99.89 Dependence on other enabling machines and devices; I89.0 Lymphedema, not elsewhere classified; J45.909 Unspecified asthma, uncomplicated; M79.3 Panniculitis, unspecified; G43.909 Migraine, unspecified, not intractable, without status migrainosus; Z82.49 Family history of ischemic heart disease and other diseases of the circulatory system; Z83.3 Family history of diabetes mellitus; Z98.84 Bariatric surgery status; Z88.5 Allergy status to narcotic agent; Z88.0 Allergy status to penicillin; R63.4 Abnormal weight loss; Z68.33 Body mass index [BMI] 33.0-33.9, adult; Z90.49 Acquired absence of other specified parts of digestive tract; L02.211 Cutaneous abscess of abdominal wall; Z79.899 Other long term (current) drug therapy
CPT/HCPCS: 49020; 97605; 96366 ×2; 96361; 96365; 96375; 99285; 36415; 81025; 80053; 82565; 83605; 85025 ×2; 80202; 81001; 84702; 87070; 87205; 87075; 87077; 87186; 74177; G0378 ×3; J2250; J3370 ×3; J2405; J2001; J0696; J3010; J2704; Q9967

== ENCOUNTER 2018-11-18 11:42 | Emergency (ER) | payer OTHER ==
[2018-11-18 11:53] VITALS: RESP 18
[2018-11-18] MEDS ORDERED: PANTOPRAZOLE 40 MG/10 ML VIAL IVP STA (12:25)
[2018-11-18] MEDS ORDERED: SODIUM CHLORIDE 0.9% 1,000 ML IV STA (12:25)
[2018-11-18] MEDS ORDERED: SODIUM CHLORIDE 0.9% 2,000 ML IV STA (12:25)
[2018-11-18] MEDS ORDERED: MORPHINE SULFATE 4 MG/ML SYRINGE IV STA (12:25)
[2018-11-18 12:48] VITALS: TEMP 97.7
[2018-11-18 12:48] LABS: Appearance,Urine Clear (Clear); Bilirubin,Urine Negative (Negative); Blood,Urine Negative (Negative); Color,Urine Yellow; Glucose,Urine (UA) Negative (Negative); Ketones,Urine Negative (Negative); Leukocyte Esterase,Urine Negative (Negative); Nitrite,Urine Negative (Negative); PH, Urine 7.5 (5.0-8.0); Protein,Urine Negative (Negative); Specific Gravity,Urine 1.025 (1.001-1.035)
[2018-11-18] MEDS ORDERED: ONDANSETRON 4 MG/2 ML VIAL IVP STA (12:48)
[2018-11-18 12:55] LABS: Basophils # (A) 0.1 k/uL (0-0.2); Basophils % (A) 1 %; Eosinophils # (A) 0.1 k/uL (0-0.7); Eosinophils % (A) 2 %; HGB 12.4 gm/dL (11.4-16.0); Lymphocytes # (A) 2.4 k/uL (1.0-4.8); Lymphocytes % (A) 42 %; MCH 30.6 pg (25.0-35.0); MCHC 32.5 g/dL (31.0-37.0); Mean Platelet Volume 8.1; Monocytes # (A) 0.2 k/uL (0-1.0); Monocytes % (A) 3 %; Neutrophils # (A) 2.9 k/uL (1.3-7.7); Neutrophils % (A) 50 %; Platelet Count 231 k/uL (150-450); RBC 4.04 m/uL (3.80-5.40); RDW 12.7 % (11.5-15.5); WBC 5.8 k/uL (3.8-10.6)
[2018-11-18 13:00] LABS: ALT 15 U/L (9-52); AST 16 U/L (14-36); African American GFR (CKD) >90 (>60 ml/min/1.73 sqM); Albumin 3.8 g/dL (3.5-5.0); Alkaline Phosphatase 59 U/L (38-126); Amylase 34 U/L (30-110); Anion Gap 7 mmol/L; Blood Urea Nitrogen 10 mg/dL (7-17); Calcium 8.9 mg/dL (8.4-10.2); Carbon Dioxide 25 mmol/L (22-30); Chloride 107 mmol/L (98-107); Glucose 85 mg/dL (74-99); Potassium 4.1 mmol/L (3.5-5.1); Sodium 139 mmol/L (137-145); Total Bilirubin 0.5 mg/dL (0.2-1.3); Total Protein 6.6 g/dL (6.3-8.2)
[2018-11-18 13:02] LABS: INR 0.9 (<1.2); Partial Thromboplastin Time 24.9 sec (22.0-30.0); Prothrombin Time 10.2 sec (9.0-12.0)
--- NOTE | 2018-11-18 13:46 | ED ---
Abdominal Pain HPI - General Chief Complaint: Abdominal Pain Stated Complaint: Poss bowl obstruction Time Seen by Provider: 11/18/18 11:57 Source: patient, RN notes reviewed, old records reviewed Mode of arrival: ambulatory Limitations: no limitations - History of Present Illness Initial Comments: 43-year-old female presents emergency department today for evaluation with chief complaint of abdominal pain, abdominal fullness feeling. She has history of gastric sleeve procedure this is over Dr. Moe. She reports that she had similar symptoms approximately undergoing was determined have about reduction at that time. She states that she has been passing gas but not having a bowel movement in the past week. Patient states that she has also 160 pounds within the past year. Patient states that she called , whom told to come in to rule out obstruction with CT. - Related Data Home Medications Medication Instructions Recorded Confirmed Ferrous Sulfate [Iron (65 MG 325 mg PO DAILY 06/08/18 11/18/18 Elemental)] Albuterol Inhaler [Ventolin Hfa 1 - 2 puff INHALATION RT-Q6H PRN 08/18/18 Inhaler] Multivitamins, Thera [Multivitamin 1 tab PO DAILY 08/18/18 11/18/18 (formulary)] Cholecalciferol (Vitamin D3) 2,000 unit PO DAILY 11/18/18 11/18/18 [Vitamin D3] Previous Rx's Medication Instructions Recorded Butalb/APAP/Caff 50-325-40Mg 1 tab PO Q4H PRN #18 tablet 06/16/18 [Fioricet 50-325-40] Allergies Allergy/AdvReac Type Severity Reaction Status Date / Time hydromorphone [From Dilaudid] Allergy Swelling Verified 11/18/18 12:01 Penicillins Allergy Unknown Verified 11/18/18 12:01 Childhood Review of Systems ROS Statement: Those systems with pertinent positive or pertinent negative responses have been documented in the HPI. ROS Other: All systems not noted in ROS Statement are negative. Past Medical History Past Medical History: Asthma, Sleep Apnea/CPAP/BIPAP Additional Past Medical History / Comment(s): Uses C-Pap, Poly Cystic Ovarian Sy ndrome, Migraine Headaches 4-5x/week, H-Pylori Positive per EGD specimen, Post op fluid collection (seroma) gastric bypass. DEHYDRATION, bowel obstruction History of Any Multi-Drug Resistant Organisms: None Reported Past Surgical History: Appendectomy, Bariatric Surgery, Bowel Resection, Section, Cholecystectomy, Hernia Repair, Orthopedic Surgery, Tubal Ligation Additional Past Surgical History / Comment(s): x3: 1999, 2002, 2009; Bilateral Carpal Tunnel 2013; gastric bypass sx 05-26-17 (Dr. Ceballos), small bowel obstruction and hernia repair, umbilical hernia repair Past Anesthesia/Blood Transfusion Reactions: No Reported Reaction Past Psychological History: No Psychological Hx Reported Smoking Status: Never smoker Past Alcohol Use History: None Reported Past Drug Use History: None Reported - Past Family History Father Family Medical History: Congestive Heart Failure (CHF), Coronary Artery Disease (CAD), Diabetes Mellitus Additional Family Medical History / Comment(s): at age 66 from heart failure Mother Family Medical History: Coronary Artery Disease (CAD), Diabetes Mellitus, Vascular Disorder Additional Family Medical History / Comment(s): Type II DM, General Exam - General Exam Comments Initial Comments: 43-year-old female. Alert and oriented 3. No significant distress. Limitations: no limitations General appearance: alert, in no apparent distress Head exam: Present: atraumatic, normocephalic, normal inspection Eye exam: Present: normal appearance, PERRL, EOMI. Absent: scleral icterus, conjunctival injection, periorbital swelling ENT exam: Present: normal exam, mucous membranes moist Neck exam: Present: normal inspection. Absent: tenderness, meningismus, lymphadenopathy Respiratory exam: Present: normal lung sounds bilaterally. Absent: respiratory distress, wheezes, rales, rhonchi, stridor Cardiovascular Exam: Present: regular rate, normal rhythm, normal heart sounds. Absent: systolic murmur, diastolic murmur, rubs, gallop, clicks GI/Abdominal exam: Present: soft, tenderness (Patient r carlo X's on the epigastric region where Patient is tender. Well-appearing midline incision.), normal bowel sounds. Absent: distended, guarding, rebound, rigid Extremities exam: Present: normal inspection, full ROM, normal capillary refill. Absent: tenderness, pedal edema, joint swelling, calf tenderness Back exam: Present: normal inspection Neurological exam: Present: alert, oriented X3, CN II-XII intact Psychiatric exam: Present: normal affect, normal mood Skin exam: Present: warm, dry, intact, normal color. Absent: rash Course Vital Signs 11/18/18 11/18/18 11:50 12:47 Temperature 97.8 F 97.7 F Pulse Rate 56 L 53 L Respiratory 18 18 Rate Blood Pressure 118/77 105/68 O2 Sat by Pulse 100 99 Oximetry Medical Decision Making - Medical Decision Making This is a 43-year-old female she presents today for evaluation for concerns for epigastric abdominal pain, she said history gastric slurred surgery, his concern for possibility of obstruction. She states she's not had a bowel movement in over a week. Patient's that she is still urinating. Patient has no vomiting does complain some mild S reflux. The same Patient has some epigastric tenderness. Lab work was reviewed and unremarkable. She undergo computed tomography scan. There is some inflammation of the mesentery which is nonspecific. Some mild ascites as well. I discussed the case with Dr. Moe who reviewed the imaging and labs. She stated the Patient follow out patiently with her in the office. Discussed this with finding with the Patient. Discussed that she needs to increase her fluid intake and have a bland diet. Patient understands treatment plan will comply. Discussed referral back to Dr. Moe. Patient is agreeable. - Lab Data Result diagrams: 11/18/18 12:37 11/18/18 12:37 Lab Results 11/18/18 11/18/18 11/18/18 Range/Units 12:36 12:37 12:37 WBC 5.8 (3.8-10.6) k/uL RBC 4.04 (3.80-5.40) m/uL Hgb 12.4 (11.4-16.0) gm/dL Hct 38.0 (34.0-46.0) % MCV 94.0 (80.0-100.0) fL MCH 30.6 (25.0-35.0) pg MCHC 32.5 (31.0-37.0) g/dL RDW 12.7 (11.5-15.5) % Plt Count 231 (150-450) k/uL Neutrophils % 50 % Lymphocytes % 42 % Monocytes % 3 % Eosinophils % 2 % Basophils % 1 % Neutrophils # 2.9 (1.3-7.7) k/uL Lymphocytes # 2.4 (1.0-4.8) k/uL Monocytes # 0.2 (0-1.0) k/uL Eosinophils # 0.1 (0-0.7) k/uL Basophils # 0.1 (0-0.2) k/uL PT (9.0-12.0) sec INR (<1.2) APTT (22.0-30.0) sec Sodium 139 (137-145) mmol/L Potassium 4.1 (3.5-5.1) mmol/L Chloride 107 (98-107) mmol/L Carbon Dioxide 25 (22-30) mmol/L Anion Gap 7 mmol/L BUN 10 (7-17) mg/dL Creatinine 0.52 (0.52-1.04) mg/dL Est GFR (CKD-EPI)AfAm >90 (>60 ml/min/1.73 sqM) Est GFR (CKD-EPI)NonAf >90 (>60 ml/min/1.73 sqM) Glucose 85 (74-99) mg/dL Plasma Lactic Acid Uli (0.7-2.0) mmol/L Calcium 8.9 (8.4-10.2) mg/dL Total Bilirubin 0.5 (0.2-1.3) mg/dL AST 16 (14-36) U/L ALT 15 (9-52) U/L Alkaline Phosphatase 59 (38-126) U/L Total Protein 6.6 (6.3-8.2) g/dL Albumin 3.8 (3.5-5.0) g/dL Amylase 34 (30-110) U/L Lipase 137 (23-300) U/L Urine Color Yellow Urine Appearance Clear (Clear) Urine pH 7.5 (5.0-8.0) Ur Specific [place] 1.025 (1.001-1.035) Urine Protein Negative (Negative) Urine Glucose (UA) Negative (Negative) Urine Ketones Negative (Negative) Urine Blood Negative (Negative) Urine Nitrite Negative (Negative) Urine Bilirubin Negative (Negative) Urine Urobilinogen 4.0 (<2.0) mg/dL Ur Leukocyte Esterase Negative (Negative) 11/18/18 11/18/18 Range/Units 12:37 12:37 WBC (3.8-10.6) k/uL RBC (3.80-5.40) m/uL Hgb (11.4-16.0) gm/dL Hct (34.0-46.0) % MCV (80.0-100.0) fL MCH (25.0-35.0) pg MCHC (31.0-37.0) g/dL RDW (11.5-15.5) % Plt Count (150-450) k/uL Neutrophils % % Lymphocytes % % Monocytes % % Eosinophils % % Basophils % % Neutrophils # (1.3-7.7) k/uL Lymphocytes # (1.0-4.8) k/uL Monocytes # (0-1.0) k/uL Eosinophils # (0-0.7) k/uL Basophils # (0-0.2) k/uL PT 10.2 (9.0-12.0) sec INR 0.9 (<1.2) APTT 24.9 (22.0-30.0) sec Sodium (137-145) mmol/L Potassium (3.5-5.1) mmol/L Chloride (98-107) mmol/L Carbon Dioxide (22-30) mmol/L Anion Gap mmol/L BUN (7-17) mg/dL Creatinine (0.52-1.04) mg/dL Est GFR (CKD-EPI)AfAm (>60 ml/min/1.73 sqM) Est GFR (CKD-EPI)NonAf (>60 ml/min/1.73 sqM) Glucose (74-99) mg/dL Plasma Lactic Acid Uli 0.6 L (0.7-2.0) mmol/L Calcium (8.4-10.2) mg/dL Total Bilirubin (0.2-1.3) mg/dL AST (14-36) U/L ALT (9-52) U/L Alkaline Phosphatase (38-126) U/L Total Protein (6.3-8.2) g/dL Albumin (3.5-5.0) g/dL Amylase (30-110) U/L Lipase (23-300) U/L Urine Color Urine Appearance (Clear) Urine pH (5.0-8.0) Ur Specific [place] (1.001-1.035) Urine Protein (Negative) Urine Glucose (UA) (Negative) Urine Ketones (Negative) Urine Blood (Negative) Urine Nitrite (Negative) Urine Bilirubin (Negative) Urine Urobilinogen (<2.0) mg/dL Ur Leukocyte Esterase (Negative) - Radiology Data Radiology results: report reviewed No CT evidence for bowel obstruction mild ascites throughout mesentery, [place] mesentery appearance is nonspecific. Disposition Clinical Impression: Upper abdominal pain Disposition: HOME SELF-CARE Condition: Good Instructions (If sedation given, give patient instructions): Abdominal Pain (ED) Additional Instructions: Patient is to follow-up promptly with Dr. Moe. Return to the emergency department if any alarming signs or symptoms occur. Rest, increase her fluid intake. Is patient prescribed a controlled substance at d/c from ED?: No Referrals: Antoine Morales MD [Primary Care Provider] - 1-2 days Time of Disposition: 14:34
--- NOTE | 2018-11-18 13:58 | CT ---
EXAMINATION TYPE: CT abdomen pelvis w con DATE OF EXAM: 11/18/2018 HISTORY: poss bowel obstruction/ab pain CT DLP: 1361.4mGycm Automated Exposure Control for Dose Reduction was Utilized. CONTRAST: CT scan of the abdomen and pelvis is performed without oral but with IV Contrast, patient injected wi th 100 mL of Isovue 300. COMPARISON: CT abdomen and pelvis August 18, 2018 FINDINGS: LUNG BASES: No significant abnormality is appreciated. LIVER/GB: Cholecystectomy clips are seen. PANCREAS: No significant abnormality is seen. SPLEEN: No significant abnormality is seen. ADRENALS: No significant abnormality is seen. KIDNEYS: No significant abnormality is seen. BOWEL: Evaluation while suboptimal secondary to lack of enteric contrast. Surgical changes from gastr ic bypass procedure redemonstrated epigastric region. No suspicious small or large bowel dilatation UTERUS/ADNEXA: Anteverted uterus is present. Occasional scattered pelvic phleboliths. LYMPH NODES: No greater than 1cm abdominal or pelvic lymph nodes are appreciated. Some prominent but subcentimeter left-sided mesenteric lymph nodes with mild haziness of the mesentery at this level ref erence axial image 31 is redemonstrated. OSSEOUS STRUCTURES: No significant abnormality is seen. OTHER: No significant additional abnormality is seen. IMPRESSION: No CT evidence for small bowel obstruction. Mild ascites throughout the mesentery, valent[place] mesentery appearance is nonspecific.
[2018-11-18 16:58] VITALS: BP 145/70; PULSE 57
== END 2018-11-18 16:59 | disposition home or self-care (01) ==
LOC: EC 11:42
DX: R10.10 Upper abdominal pain, unspecified (principal); R10.816 Epigastric abdominal tenderness; R18.8 Other ascites; J45.909 Unspecified asthma, uncomplicated; G47.30 Sleep apnea, unspecified; Z88.0 Allergy status to penicillin; Z88.5 Allergy status to narcotic agent; Z99.89 Dependence on other enabling machines and devices; Z98.84 Bariatric surgery status
CPT/HCPCS: 36415; 80053; 82150; 83605; 83690; 85025; 85610; 85730; 81003; 74177; 99284; 96374; 96375; 96361 ×3; J2405; C9113; Q9967

== ENCOUNTER 2018-12-01 09:33 | Inpatient (IN) | payer OTHER ==
[2018-12-01] MEDS: SODIUM CHLORIDE 0.9% 1,000 ML IV SCH (14:20)
[2018-12-01] MEDS ORDERED: NALOXONE 0.4 MG/ML 1 ML VIAL IV PRN ×2 (14:24→14:29)
[2018-12-01] MEDS ORDERED: LORazepam 2 MG/ML INJ IV PRN (14:24)
[2018-12-01] MEDS ORDERED: ONDANSETRON 4 MG/2 ML VIAL IVP PRN (14:24)
[2018-12-01] MEDS ORDERED: ACETAMINOPHEN TAB 325 MG TAB PO PRN (14:28)
[2018-12-01 15:21] LABS: Basophils % (A) 1 %; Eosinophils # (A) 0.2 k/uL (0-0.7); Eosinophils % (A) 3 %; HGB 12.4 gm/dL (11.4-16.0); Lymphocytes # (A) 2.3 k/uL (1.0-4.8); Lymphocytes % (A) 32 %; MCH 31.7 pg (25.0-35.0); MCHC 33.4 g/dL (31.0-37.0); Mean Platelet Volume 7.1; Monocytes # (A) 0.2 k/uL (0-1.0); Monocytes % (A) 3 %; Neutrophils # (A) 4.4 k/uL (1.3-7.7); Neutrophils % (A) 60 %; Platelet Count 209 k/uL (150-450); RBC 3.89 m/uL (3.80-5.40); RDW 12.5 % (11.5-15.5); WBC 7.2 k/uL (3.8-10.6)
[2018-12-01 15:28] LABS: ALT 16 U/L (9-52); AST 17 U/L (14-36); African American GFR (CKD) >90 (>60 ml/min/1.73 sqM); Albumin 3.6 g/dL (3.5-5.0); Alkaline Phosphatase 52 U/L (38-126); Amylase 30 U/L (30-110); Anion Gap 7 mmol/L; Blood Urea Nitrogen 13 mg/dL (7-17); Calcium 8.7 mg/dL (8.4-10.2); Carbon Dioxide 27 mmol/L (22-30); Chloride 106 mmol/L (98-107); Glucose 81 mg/dL (74-99); Potassium 3.8 mmol/L (3.5-5.1); Sodium 140 mmol/L (137-145); Total Bilirubin 0.5 mg/dL (0.2-1.3); Total Protein 6.5 g/dL (6.3-8.2)
[2018-12-01 15:34] VITALS: BMI 33.0
[2018-12-01] MEDS ORDERED: SODIUM CHLORIDE 0.9% 2,000 ML IV ONE (19:29)
--- NOTE | 2018-12-01 19:31 | P.GSHP ---
History of Present Illness H&P Date: 12/01/18 CHIEF COMPLAINT: Small bowel obstruction HISTORY OF PRESENT ILLNESS: The patient is a 43-year-old female who presents with 2 week history of acute onset abdominal pain. Her history is significant f or gastric bypass including laparotomy for small bowel obstruction due to small bowel volvulus, 6 months ago in May 2018. She reports feeling well in the last 3 months. In fact she was exercising. She reports jogging on a treadmill where she had crampy acute abdominal pain from the epigastrium radiating to the left upper quadrant. Her pain is different in character as opposed to her previous bowel obstruction 6 months ago. She presented to the ER 2 weeks ago with similar complaints and was discharged home. Pain grew worse. She reports difficulty passing flatus and having bowel movements. She does report intermittent gas bloat. She was sent from the office to the hospital with clin ical features of bowel obstruction. She reports inability to tolerate soft or regular diet. No reports of blood in stools. She reports intractable nausea vomiting and inability to keep anything oral. Her intentional lifetime weight loss is 146 pounds from 321 pounds. PAST MEDICAL HISTORY: See list. PAST SURGICAL HISTORY: See list. MEDICATIONS: See list. ALLERGIES: See list. SOCIAL HISTORY: No illicit drug use FAMILY HISTORY: No reports of Crohn's disease or inflammatory bowel disease REVIEW OF ORGAN SYSTEMS: CONSTITUTIONAL: No fevers or chills. Intentional weight loss over 146 pounds. Her prior weight 321 pounds. EYES: Denies any trouble with vision. No glasses. HEENT: No difficulties with hearing. No nosebleeds. No difficulty swallowing. RESPIRATORY: Denies pneumonia. Denies any troubles with breathing or dyspnea on exertion. CARDIOVASCULAR: Denies any chest pain, palpitations, or recent heart attacks. GASTROINTESTINAL: Recent small bowel obstruction. History of H. pylori gastritis. Reports intractable nausea and vomiting. GENITOURINARY: Denies any blood in urine or increased urinary frequency. NEUROLOGICAL: Denies any numbness or tingling along the distal extremities. No seizure disorders or headaches. MUSCULOSKELETAL: Has back pain, stiffness or joint arthritis. SKIN: Severe panniculitis with previous abdominal wall cellulitis. PSYCHIATRIC: Denies current depression or suicidal thoughts. ENDOCRINE: Denies current thyroid disorders. Denies any blood sugar glucose intolerance. HEME/LYMPHATIC: Denies any lumps and bumps around the neck. No recent deep venous thrombosis. History of iron deficiency anemia ALLERGY/IMMUNOLOGY: No immunoglobulin therapy. No immune deficiencies. BREAST: Denies current breast lumps, pain or nipple discharge. PHYSICAL EXAM: VITALS: Reviewed CONSTITUTIONAL: Well developed and in no acute distress. EYES: Conjuctivae without sclera icterus. Pupils are equally round and reactive to light. Extraocular movements grossly intact. HEAD, EARS, NOSE, THROAT: Dry buccal mucosa. Head is atraumatic, normocephalic. Hears conversational speech. No nasal drainage. Good dentition. NECK: Supple. No JV distention. No thyroidomegaly. RESPIRATORY: Non-labored respirations and equal bilateral excursions. No gross wheezes. CARDIOVASCULAR: Regular rate and rhythm. Extremities without moderate edema. Palpable 2+ radial pulses. ABDOMEN: Soft. Tender epigastrium and left upper quadrant. No peritonitis. Nondistention. LYMPH: No neck lymphadenopathy. MUSCULOSKELETAL: Gait within normal limits. Range of motion bilateral upper extremities within normal limits. Nail and fingers with good capillary refill. SKIN: Warm and well perfused with good skin turgor. NEUROLOGIC: Cranial nerves I through XII grossly intact. Sensation upper and extremities intact. No focal or lateralizing signs. PSYCH: Appropriate affect. Alert and oriented to person, place and time. Displays appropriate insight. CLINCAL LABS: Reviewed from ER visits with white blood cell count within normal limits. RADIOLOGY: Report reviewed consistent with mesenteric inflammation from CT 2 weeks ago in the ER IMAGING: Independently reviewed with mesenteric swirl. No free air identified. ASSESSMENT: 1. Recurrent small bowel obstruction 2. History of gastric bypass 3. History of laparotomy with peritoneal adhesions PLAN: 1. Inpatient hospitalization over 2 nights 2. CBC including metabolic panel and amylase and lipase for epigastric abdominal pain 3. Will need surgical intervention for small bowel obstruction 4. DVT prophylaxis 5. Antibiotic prophylaxis 6. Diagnostic laparoscopy with lysis of adhesions possible open technique and bowel resection. Past Medical History Past Medical History: Asthma, Sleep Apnea/CPAP/BIPAP Additional Past Medical History / Comment(s): Uses C-Pap, Poly Cystic Ovarian Syndrome, Migraine Headaches 4-5x/week, H-Pylori Positive per EGD specimen, Post op fluid collection (seroma) gastric bypass. DEHYDRATION, bowel obstruction History of Any Multi-Drug Resistant Organisms: None Reported Past Surgical History: Appendectomy, Bariatric Surgery, Bowel Resection, Cesarea n Section, Cholecystectomy, Hernia Repair, Orthopedic Surgery, Tubal Ligation Additional Past Surgical History / Comment(s): x3: 1999, 2002, 2009; Bilateral Carpal Tunnel 2013; gastric bypass sx 05-26-17 (Dr. Ceballos), small bowel obstruction and hernia repair, umbilical hernia repair Past Anesthesia/Blood Transfusion Reactions: No Reported Reaction Past Psychological History: No Psychological Hx Reported Smoking Status: Never smoker Past Alcohol Use History: None Reported Past Drug Use History: None Reported - Past Family History Father Family Medical History: Congestive Heart Failure (CHF), Coronary Artery Disease (CAD), Diabetes Mellitus Additional Family Medical History / Comment(s): at age 66 from heart failure Mother Family Medical History: Coronary Artery Disease (CAD), Diabetes Mellitus, Vascular Disorder Additional Family Medical History / Comment(s): Type II DM, Medications and Allergies Home Medications Medication Instructions Recorded Confirmed Type Ferrous Sulfate [Iron (65 MG 325 mg PO DAILY 06/08/18 12/01/18 History Elemental)] Butalb/APAP/Caff 50-325-40Mg 1 tab PO Q4H PRN #18 tablet 06/16/18 12/01/18 Rx [Fioricet 50-325-40] Albuterol Inhaler [Ventolin Hfa 1 - 2 puff INHALATION RT-Q6H PRN 08/18/18 12/01/18 History Inhaler] Multivitamins, Thera [Multivitamin 1 tab PO DAILY 08/18/18 12/01/18 History (formulary)] Cholecalciferol (Vitamin D3) 2,000 unit PO DAILY 11/18/18 12/01/18 History [Vitamin D3] Allergies Allergy/AdvReac Type Severity Reaction Status Date / Time hydromorphone [From Dilaudid] Allergy Swelling Verified 11/18/18 12:01 Penicillins Allergy Unknown Verified 11/18/18 12:01 Childhood Surgical - Exam Vital Signs Temp Pulse Resp BP Pulse Ox 98.6 F 62 16 128/82 98 12/01/18 15:00 12/01/18 15:00 12/01/18 15:00 12/01/18 15:00 12/01/18 15:00 Results - Labs 12/02/18 06:17 12/02/18 06:17 Diabetes panel 12/01/18 Range/Units 14:57 Sodium 140 (137-145) mmol/L Potassium 3.8 (3.5-5.1) mmol/L Chloride 106 (98-107) mmol/L Carbon Dioxide 27 (22-30) mmol/L BUN 13 (7-17) mg/dL Creatinine 0.61 (0.52-1.04) mg/dL Glucose 81 (74-99) mg/dL Calcium 8.7 (8.4-10.2) mg/dL AST 17 (14-36) U/L ALT 16 (9-52) U/L Alkaline Phosphatase 52 (38-126) U/L Total Protein 6.5 (6.3-8.2) g/dL Albumin 3.6 (3.5-5.0) g/dL Calcium panel 12/01/18 Range/Units 14:57 Calcium 8.7 (8.4-10.2) mg/dL Albumin 3.6 (3.5-5.0) g/dL Pituitary panel 12/01/18 Range/Units 14:57 Sodium 140 (137-145) mmol/L Potassium 3.8 (3.5-5.1) mmol/L Chloride 106 (98-107) mmol/L Carbon Dioxide 27 (22-30) mmol/L BUN 13 (7-17) mg/dL Creatinine 0.61 (0.52-1.04) mg/dL Glucose 81 (74-99) mg/dL Calcium 8.7 (8.4-10.2) mg/dL Adrenal panel 12/01/18 Range/Units 14:57 Sodium 140 (137-145) mmol/L Potassium 3.8 (3.5-5.1) mmol/L Chloride 106 (98-107) mmol/L Carbon Dioxide 27 (22-30) mmol/L BUN 13 (7-17) mg/dL Creatinine 0.61 (0.52-1.04) mg/dL Glucose 81 (74-99) mg/dL Calcium 8.7 (8.4-10.2) mg/dL Total Bilirubin 0.5 (0.2-1.3) mg/dL AST 17 (14-36) U/L ALT 16 (9-52) U/L Alkaline Phosphatase 52 (38-126) U/L Total Protein 6.5 (6.3-8.2) g/dL Albumin 3.6 (3.5-5.0) g/dL Assessment and Plan (1) Dehydration Current Visit: Yes Status: Acute Code(s): E86.0 - DEHYDRATION SNOMED Code(s): 94232648 (2) History of Guillermina-en-Y gastric bypass Current Visit: No Status: Acute Code(s): Z98.84 - BARIATRIC SURGERY STATUS SNOMED Code(s): 831206351 (3) Small bowel obstruction Current Visit: No Status: Acute Code(s): K56.609 - UNSP INTESTNL OBST, UNSP TO PARTIAL VERSUS COMPLETE OBST SNOMED Code(s): 550715049 (4) Nausea & vomiting Current Visit: Yes Status: Acute Code(s): R11.2 - NAUSEA WITH VOMITING, UNSPECIFIED SNOMED Code(s): 74785370
[2018-12-02 08:25] LABS: ALT 17 U/L (9-52); AST 19 U/L (14-36); African American GFR (CKD) >90 (>60 ml/min/1.73 sqM); Albumin 2.6 g/dL (3.5-5.0); Alkaline Phosphatase 33 U/L (38-126); Anion Gap 7 mmol/L; Blood Urea Nitrogen 7 mg/dL (7-17); Calcium 7.8 mg/dL (8.4-10.2); Carbon Dioxide 20 mmol/L (22-30); Chloride 110 mmol/L (98-107); Glucose 75 mg/dL (74-99); Potassium 3.9 mmol/L (3.5-5.1); Sodium 137 mmol/L (137-145); Total Bilirubin 0.8 mg/dL (0.2-1.3); Total Protein 5.2 g/dL (6.3-8.2)
[2018-12-02 08:34] LABS: Basophils % (A) 1 %; Eosinophils # (A) 0.2 k/uL (0-0.7); Eosinophils % (A) 3 %; HCT 33.4 % (34.0-46.0); HGB 11.2 gm/dL (11.4-16.0); Lymphocytes # (A) 2.5 k/uL (1.0-4.8); Lymphocytes % (A) 48 %; MCH 32.1 pg (25.0-35.0); MCHC 33.5 g/dL (31.0-37.0); Mean Platelet Volume 8.6; Monocytes # (A) 0.2 k/uL (0-1.0); Monocytes % (A) 4 %; Neutrophils # (A) 2.2 k/uL (1.3-7.7); Neutrophils % (A) 42 %; Platelet Count 183 k/uL (150-450); RBC 3.48 m/uL (3.80-5.40); RDW 12.8 % (11.5-15.5); WBC 5.2 k/uL (3.8-10.6)
[2018-12-02] MEDS: ENOXAPARIN 40 MG/0.4 ML SYRINGE SQ SCH (08:59)
[2018-12-02] MEDS: SODIUM CHLORIDE 0.9% 1,000 ML IV SCH ×2 (09:00→19:15)
--- NOTE | 2018-12-02 12:49 | P.PN ---
<Varsha Morin - Last Filed: 12/02/18 12:44> Subjective Progress Note Date: 12/02/18 CHIEF COMPLAINT: Small bowel obstruction HISTORY OF PRESENT ILLNESS: Patient examined this morning at the bedside. She denies abdominal pain. Ate eggs this morning for breakfast. Denies nausea or vomiting. Passing flatus. Had a small bowel movement yesterday. WBC 5.2. Hemoglobin 11.2. Vital signs stable. She is afebrile. PHYSICAL EXAM: VITAL SIGNS: Reviewed GENERAL: Well-developed in no acute distress. HEENT: No sclera icterus. Extraocular movements grossly intact. Moist buccal mucosa. Head is atraumatic, normocephalic. Hears conversational speech. No nasal drainage. NECK: Supple without lymphadenopathy. CHEST: Non-labored respirations and equal bilateral excursions. CARDIOVASCULAR: Regular rate with regular rhythm. Palpable 2+ radial pulses. ABDOMEN: Soft. Nondistended. Nontender. Positive bowel signs. No peritoneal signs. MUSCULOSKELETAL: No clubbing, cyanosis or edema. NEUROLOGIC: No focal or lateralizing signs. Cranial nerves II through XII grossly intact. PSYCH: Appropriate affect. Alert and oriented to person, place and time. SKIN: Well perfused. Good skin turgor. ASSESSMENT: 1. Recurrent small bowel obstruction 2. History of gastric bypass 3. History of laparotomy with peritoneal adhesions PLAN: 1. Continue current diet 2. Nothing by mouth at midnight 3. Pain control 4. Patient to undergo diagnostic laparoscopy with lysis of adhesions possible open, possible bowel resection tomorrow with Dr. Ceballos Nurse practitioner note has been reviewed by physician. Signing provider agrees with the documented findings, assessment, and plan of care. Objective - Vital Signs Vital signs: Vital Signs Temp 98.9 F 12/02/18 07:00 Pulse 90 12/02/18 07:00 Resp 16 12/02/18 08:00 BP 110/69 12/02/18 07:00 Pulse Ox 96 12/02/18 08:51 Intake & Output 12/01/18 12/02/18 12/02/18 18:59 06:59 18:59 Weight 79.379 kg 79.379 kg Other: Voiding Method Toilet Toilet Toilet - Labs CBC & Chem 7: 12/02/18 06:17 12/02/18 06:17 Labs: Abnormal Lab Results - Last 24 Hours (Table) 12/02/18 12/02/18 Range/Units 06:17 06:17 RBC 3.48 L (3.80-5.40) m/uL Hgb 11.2 L (11.4-16.0) gm/dL Hct 33.4 L (34.0-46.0) % Chloride 110 H (98-107) mmol/L Carbon Dioxide 20 L (22-30) mmol/L Creatinine 0.47 L (0.52-1.04) mg/dL Calcium 7.8 L (8.4-10.2) mg/dL Alkaline Phosphatase 33 L (38-126) U/L Total Protein 5.2 L (6.3-8.2) g/dL Albumin 2.6 L (3.5-5.0) g/dL Assessment and Plan (1) Small bowel obstruction Current Visit: Yes Status: Acute Code(s): K56.609 - UNSP INTESTNL OBST, UNSP TO PARTIAL VERSUS COMPLETE OBST SNOMED Code(s): 166812927 <Komal Ceballos N - Last Filed: 12/03/18 16:29> Subjective All benefits and risks including open technique reviewed. Objective - Vital Signs Vital signs: Vital Signs Temp 99.2 F 12/03/18 15:57 Pulse 65 12/03/18 16:17 Resp 16 12/03/18 16:17 BP 98/51 12/03/18 16:17 Pulse Ox 93 L 12/03/18 16:17 Intake & Output 12/02/18 12/03/18 12/03/18 18:59 06:59 18:59 Intake Total 1400 2525 Output Total 350 Balance 1400 2175 Weight 79.379 kg Intake: IV 2525 Intake, IV Titration 1400 Amount Sodium Chloride 0.9% 1, 1400 000 ml @ 100 mls/hr IV . Q10H NICOLETTE Rx#:[id number] Output: Urine 300 Estimated Blood Loss 50 Other: Voiding Method Toilet Toilet # Voids 2 2 - Labs CBC & Chem 7: 12/02/18 06:17 12/02/18 06:17 Assessment and Plan (1) Dehydration Current Visit: Yes Status: Acute Code(s): E86.0 - DEHYDRATION SNOMED Code(s): 08186853 (2) History of Guillermina-en-Y gastric bypass Current Visit: No Status: Acute Code(s): Z98.84 - BARIATRIC SURGERY STATUS SNOMED Code(s): 544545709 (3) Small bowel obstruction Current Visit: Yes Status: Acute Code(s): K56.609 - UNSP INTESTNL OBST, UNSP TO PARTIAL VERSUS COMPLETE OBST SNOMED Code(s): 961385478 (4) Nausea & vomiting Current Visit: Yes Status: Acute Code(s): R11.2 - NAUSEA WITH VOMITING, UNSPECIFIED SNOMED Code(s): 07272929
[2018-12-02] MEDS ORDERED: ONDANSETRON 4 MG/2 ML VIAL IVP ONE (19:34)
[2018-12-02] MEDS: LACTATED RINGERS 1,000 ML IV SCH (19:47)
[2018-12-02] MEDS: DEXAMETHASONE SOD PHOSPHATE 10 MG/ML 1 ML VIAL IV ONE (19:47)
[2018-12-03] MEDS: SODIUM CHLORIDE 0.9% 1,000 ML IV SCH ×2 (05:24→17:27)
[2018-12-03] MEDS ORDERED: CLINDAMYCIN 900 MG in DEXTROSE 5% IN WATER 50 ML IVPB ONE ×2 (10:00)
[2018-12-03] MEDS ORDERED: IV FLUID CONTINUATION 975 ML IV ONE (11:14)
[2018-12-03] MEDS ORDERED: LIDOCAINE 1% 20 ML VIAL (10MG/ML) FOR IV START INTRADERMA ONE (11:48)
[2018-12-03] MEDS: DEXAMETHASONE SOD PHOSPHATE 10 MG/ML 1 ML VIAL IV ONE (11:49)
[2018-12-03] MEDS: ENOXAPARIN 40 MG/0.4 ML SYRINGE SQ SCH (12:27)
[2018-12-03] MEDS ORDERED: LACTATED RINGERS 1,000 ML IV ONE ×2 (13:36→15:00)
[2018-12-03] MEDS ORDERED: fentaNYL (PF) 50 MCG/ML 2 ML AMP ONE (13:37)
[2018-12-03] MEDS ORDERED: GLYCOPYRROLATE 0.2 MG/ML 2 ML VIAL ONE (13:37)
[2018-12-03] MEDS ORDERED: KETAMINE 10 MG/ML 20 ML VIAL ONE (13:37)
[2018-12-03] MEDS ORDERED: SUCCINYLCHOLINE CHLORIDE 100 MG/5 ML SYR IV ONE (13:37)
[2018-12-03] MEDS ORDERED: LIDOCAINE 1% INJ 10MG/ML (20 ML MDV) ONE (13:37)
[2018-12-03] MEDS ORDERED: MIDAZOLAM 2 MG/2 ML VIAL ONE (13:37)
[2018-12-03] MEDS ORDERED: PROPOFOL 10 MG/ML 20 ML VIAL IV ONE (13:37)
[2018-12-03] MEDS ORDERED: ROCURONIUM BROMIDE 10 MG/ML 10 ML VIAL IV ONE (13:37)
[2018-12-03] MEDS ORDERED: NEOSTIGMINE 1 MG/ML 10 ML VIAL ONE (13:37)
[2018-12-03] MEDS ORDERED: SODIUM CHLORIDE 0.9% 500 ML 500 ML IV ONE (14:00)
[2018-12-03] MEDS ORDERED: LIDOCAINE 1%-EPI 1:100,000 20 ML VIAL SQ ONE ×2 (14:09→14:16)
[2018-12-03] MEDS: fentaNYL (PF) 50 MCG/ML 2 ML AMP IV PRN ×2 (16:02→16:10)
[2018-12-03] MEDS ORDERED: ACETAMINOPHEN IV (For NPO) 1,000 MG in EMPTY BAG 1 BAG IVPB ONE (16:10)
[2018-12-03] MEDS ORDERED: BUTALB/APAP/CAFF 50-325-40MG TAB PO PRN (16:11)
--- NOTE | 2018-12-03 16:29 | P.OP ---
Date of Procedure: 12/03/18 Description of Procedure: SURGEON: ASHVIN MAYBERRY MD PREOPERATIVE DIAGNOSES: 1. Small bowel obstruction 2. Abnormal computed tomography scan with internal hernia 3. History of gastric bypass 4. History of prior surgery with risk of peritoneal adhesion 5. Morbid obesity due to excess calories, BMI 33.4 6. Iron deficiency anemia POSTOPERATIVE DIAGNOSES: 1. Small bowel obstruction 2. Abnormal computed tomography scan with internal hernia 3. History of gastric bypass 4. History of prior surgery with risk of peritoneal adhesion 5. Morbid obesity due to excess calories, BMI 33.4 6. Iron deficiency anemia 7. Small bowel volvulus due to internal hernia 8. Peritoneal adhesions greater omentum to anterior abdominal wall OPERATION: 1. Diagnostic laparoscopy converted to open laparotomy with lysis of adhesions greater omentum to anterior abdominal wall 2. Open laparotomy for reduction of small bowel volvulus and internal hernia, Petersons defect 3. Application of PREVENA incisional wound VAC system, 20 cm ESTIMATED BLOOD LOSS: 50 mL. SPECIMENS REMOVED: None COMPLICATIONS: None. OPERATIVE FINDINGS: 1. Diagnostic laparoscopy demonstrated moderate intra-abdominal adhesions prohibiting further laparoscopic approach 2. Greater omental adhesions along anterior abdominal wall placed involved the transverse colon 3. New internal hernia involving Petersons defect with complete closure of previous jejunojejunostomy defect 4. Small bowel volvulus reduced with laparotomy with all bowel viable INDICATIONS: The patient is a 43-year-old female who presents with small bowel obstruction including procedures and computed tomography scan consistent with internal hernia. Just prior history of small bowel obstruction and adhesions. Clinical symptoms were consistent with bowel obstruction. Surgical intervention with laparoscopic lysis of adhesions possible bowel resection and possible laparotomy were described. Informed consent was obtained. Robotic assisted laparoscopic approach was described. Benefits and risks of the procedure including but not limited to bleeding, infection, need for further surgery was described. Informed consent was obtained. DESCRIPTION OF PROCEDURE: Patient was brought to the operating room, placed in supine position. After general induction, the abdomen had been prepped and draped in standard sterile fashion. The robotic da Melinda XI system was primed. After a timeout protocol was performed, the patient had been prepped and draped in standard sterile fashion. A 5 mm 0 degrees laparoscopic trocar entry was performed along the left upper quadrant. The abdomen was insufflated to 15 mmHg pressure she tolerated well. Diagnostic laparoscopy demonstrated moderate peritoneal adhesions involving greater omentum of the midline and small bowel volvulus prohibiting any further reduction via laparoscopic approach. Immediate conversion to open was performed. All laparoscopic and robotic equipment was removed from the field. A midline incision from the xiphoid to the lower abdomen was made using #10 blade. The midline was entered via the peritoneum using insufflation. A Bookwalter system was placed for optimal exposure of the field. Along the midline, greater omentum adhesions were found and taken down using Bovie cautery including Enseal. Next, the mesentery of the small bowel to jejunum was twisted more than 180 in a clockwise direction consistent with small bowel volvulus. From the ileocecal valve proximally the small bowel was found twisted in an internal hernia found along the Hebert defect between the transverse colon and the Guillermina limb. No recurrent jejunojejunostomy defect was identified as this was previously repaired. The small bowel was viable as it was reduced from the internal hernia. The defect was oversewn using 3-0 silk from the root of the jejunum mesentery to the window of the transverse mesocolon and Guillermina limb. Hemostasis was checked. All pneumoperitoneum instruments were evacuated from the abdominal cavity. The trocar incision was reapproximated using 4-0 Monocryl in an interrupted subcuticular fashion. Exofin was applied to the skin. The midline incision was closed using #1 double stranded PDS. The midline skin was reapproximated running suture of 3-0 Vicryl. The skin was cleansed using dilute hydrogen peroxide. A PREVENA 20-cm incisional wound VAC system was placed. An abdominal binder was placed. At the end of the procedure needle, sponge, and instrument count had been verified correct by the surgical oncologist. The patient was transferred to postanesthesia care unit in stable condition.
[2018-12-03] MEDS: SIMETHICONE 40 MG/0.6 ML DROPS 2,000 MG/30 ML BOTTLE PO SCH ×2 (17:40→23:08)
[2018-12-03] MEDS: ONDANSETRON 4 MG/2 ML VIAL IVP SCH ×2 (17:44→23:08)
[2018-12-03] MEDS: fentaNYL PCA 500 MCG/50 ML BAG IV PRN (18:48)
[2018-12-03] MEDS: 0.9% NACL WITH KCL 20 MEQ/L 1,000 ML IV SCH ×2 (18:49→20:13)
[2018-12-03] MEDS: LACTATED RINGERS 1,000 ML IV SCH (20:13)
[2018-12-04] MEDS: fentaNYL PCA 500 MCG/50 ML BAG IV PRN ×3 (03:44→21:07)
[2018-12-04] MEDS: SODIUM CHLORIDE 0.9% 1,000 ML IV SCH ×3 (04:00→22:02)
[2018-12-04] MEDS: 0.9% NACL WITH KCL 20 MEQ/L 1,000 ML IV SCH (05:12)
[2018-12-04] MEDS: SIMETHICONE 40 MG/0.6 ML DROPS 2,000 MG/30 ML BOTTLE PO SCH ×4 (05:12→23:27)
[2018-12-04] MEDS: ONDANSETRON 4 MG/2 ML VIAL IVP SCH ×4 (05:12→23:27)
[2018-12-04] MEDS ORDERED: 1: MVI, ADULT NO.4 WITH VIT K 10 ML, THIAMINE 100 MG, FOLIC ACID 1 MG, POTASSIUM CHLORID IV SCH ×6 (08:00)
[2018-12-04 08:51] LABS: Basophils % (A) 0 %; Eosinophils # (A) 0.2 k/uL (0-0.7); Eosinophils % (A) 2 %; HCT 33.4 % (34.0-46.0); HGB 10.8 gm/dL (11.4-16.0); Lymphocytes # (A) 1.5 k/uL (1.0-4.8); Lymphocytes % (A) 20 %; MCHC 32.3 g/dL (31.0-37.0); MCV 95.9 fL (80.0-100.0); Mean Platelet Volume 8.3; Monocytes # (A) 0.2 k/uL (0-1.0); Monocytes % (A) 3 %; Neutrophils # (A) 5.5 k/uL (1.3-7.7); Neutrophils % (A) 73 %; Platelet Count 172 k/uL (150-450); RBC 3.48 m/uL (3.80-5.40); RDW 12.8 % (11.5-15.5); WBC 7.6 k/uL (3.8-10.6)
[2018-12-04 09:09] LABS: African American GFR (CKD) >90 (>60 ml/min/1.73 sqM); Anion Gap 5 mmol/L; Blood Urea Nitrogen 7 mg/dL (7-17); Calcium 7.5 mg/dL (8.4-10.2); Carbon Dioxide 21 mmol/L (22-30); Chloride 112 mmol/L (98-107); Magnesium 1.6 mg/dL (1.6-2.3); Phosphorus 3.5 mg/dL (2.5-4.5); Potassium 4.1 mmol/L (3.5-5.1); Sodium 138 mmol/L (137-145)
[2018-12-04] MEDS: ENOXAPARIN 40 MG/0.4 ML SYRINGE SQ SCH (09:09)
[2018-12-04] MEDS: PANTOPRAZOLE 40 MG/10 ML VIAL IV SCH (09:09)
[2018-12-04] MEDS: SODIUM FERRIC GLUCONAT-SUCROSE 125 MG in SODIUM CHLORIDE 0.9% 100 ML IVPB SCH (09:28)
[2018-12-04] MEDS ORDERED: SODIUM CHLORIDE 0.9% 2,000 ML IV ONE (09:50)
[2018-12-04] MEDS ORDERED: HYDROcodone/APAP 5-325MG 1 EACH TAB PO PRN (09:51)
--- NOTE | 2018-12-04 09:55 | P.PN ---
Subjective Progress Note Date: 12/04/18 Principal diagnosis: Doing well. Pain improved with CARDIAC EXERCISE SPECIALIST. sister RN at bedside for discharge instructions. Will advance diet. Discharge home with PREVENA. Sister palliative care nurse practitioner nurse to remove Friday. Continue iron. Start oral pain meds Objective - Vital Signs Vital signs: Vital Signs Temp 98.8 F 12/04/18 07:00 Pulse 62 12/04/18 07:00 Resp 16 12/04/18 07:00 BP 89/57 12/04/18 07:00 Pulse Ox 98 12/04/18 07:00 Intake & Output 12/03/18 12/04/18 12/04/18 18:59 06:59 18:59 Intake Total 2775 2040 Output Total 350 1300 Balance 2425 740 Intake: IV 2775 Intake, IV Titration 1500 Amount 0.9% NaCl with KCl 20 Meq 1500 /l 1,000 ml @ 150 mls/hr IV .Q6H40M [facility] Rx#: [id number] Oral 540 Output: Urine 300 1300 Estimated Blood Loss 50 Other: Voiding Method Toilet Indwelling Catheter - Labs CBC & Chem 7: 12/04/18 07:58 12/04/18 07:58 Labs: Abnormal Lab Results - Last 24 Hours (Table) 12/04/18 12/04/18 Range/Units 07:58 07:58 RBC 3.48 L (3.80-5.40) m/uL Hgb 10.8 L (11.4-16.0) gm/dL Hct 33.4 L (34.0-46.0) % Chloride 112 H (98-107) mmol/L Carbon Dioxide 21 L (22-30) mmol/L Calcium 7.5 L (8.4-10.2) mg/dL Microbiology - Last 24 Hours (Table) 12/03/18 15:45 Gram Stain - Preliminary Abdomen Wound Culture - Preliminary 12/03/18 15:45 Anaerobic Culture - Preliminary Abdomen Assessment and Plan (1) Dehydration Current Visit: Yes Status: Acute Code(s): E86.0 - DEHYDRATION SNOMED Code(s): 64703597 (2) History of Guillermina-en-Y gastric bypass Current Visit: No Status: Acute Code(s): Z98.84 - BARIATRIC SURGERY STATUS SNOMED Code(s): 438452181 (3) Small bowel obstruction Current Visit: Yes Status: Acute Code(s): K56.609 - UNSP INTESTNL OBST, UNSP TO PARTIAL VERSUS COMPLETE OBST SNOMED Code(s): 375842412 (4) Nausea & vomiting Current Visit: Yes Status: Acute Code(s): R11.2 - NAUSEA WITH VOMITING, UNSPECIFIED SNOMED Code(s): 79524893
[2018-12-04] MEDS ORDERED: MORPHINE SULFATE 4 MG/ML SYRINGE IVP PRN (17:11)
[2018-12-04] MEDS ORDERED: NALOXONE 0.4 MG/ML 1 ML VIAL IV PRN (19:29)
[2018-12-04] MEDS: LACTATED RINGERS 1,000 ML IV SCH (20:23)
[2018-12-04] MEDS: GABAPENTIN 300 MG CAP PO SCH (21:07)
[2018-12-05] MEDS: ONDANSETRON 4 MG/2 ML VIAL IVP SCH ×3 (05:32→17:24)
[2018-12-05] MEDS: SIMETHICONE 40 MG/0.6 ML DROPS 2,000 MG/30 ML BOTTLE PO SCH ×3 (05:32→17:23)
[2018-12-05] MEDS: PANTOPRAZOLE 40 MG/10 ML VIAL IV SCH (08:56)
[2018-12-05] MEDS: ENOXAPARIN 40 MG/0.4 ML SYRINGE SQ SCH (08:57)
[2018-12-05] MEDS: GABAPENTIN 300 MG CAP PO SCH ×3 (08:57→20:41)
[2018-12-05] MEDS: SODIUM CHLORIDE 0.9% 1,000 ML IV SCH ×2 (08:57→18:20)
[2018-12-05] MEDS: SODIUM FERRIC GLUCONAT-SUCROSE 125 MG in SODIUM CHLORIDE 0.9% 100 ML IVPB SCH (10:09)
--- NOTE | 2018-12-05 11:53 | P.PN ---
Progress Note - Text Progress Note Date: 12/05/18 The patient is status post exploratory laparotomy for small bowel obstruction related to gastric bypass. She's had no significant flatus. Her abdomen soft and with mild incisional tenderness. Status post lysis of adhesion and repair of internal hernia. Patient remained on clear liquid diet.
[2018-12-05] MEDS: fentaNYL PCA 500 MCG/50 ML BAG IV PRN (15:38)
[2018-12-05] MEDS: LACTATED RINGERS 1,000 ML IV SCH (20:30)
[2018-12-06] MEDS: SIMETHICONE 40 MG/0.6 ML DROPS 2,000 MG/30 ML BOTTLE PO SCH ×5 (00:27→23:39)
[2018-12-06] MEDS: ONDANSETRON 4 MG/2 ML VIAL IVP SCH ×5 (00:28→23:38)
[2018-12-06] MEDS: SODIUM CHLORIDE 0.9% 1,000 ML IV SCH ×2 (04:15→16:01)
[2018-12-06] MEDS: GABAPENTIN 300 MG CAP PO SCH ×3 (10:14→21:23)
[2018-12-06] MEDS: PANTOPRAZOLE 40 MG/10 ML VIAL IV SCH (10:14)
[2018-12-06] MEDS: ENOXAPARIN 40 MG/0.4 ML SYRINGE SQ SCH (10:14)
[2018-12-06] MEDS: SODIUM FERRIC GLUCONAT-SUCROSE 125 MG in SODIUM CHLORIDE 0.9% 100 ML IVPB SCH (10:15)
--- NOTE | 2018-12-06 10:46 | P.PN ---
Progress Note - Text Progress Note Date: 12/06/18 The patient feels better. She is requesting for more day. On exam her vital signs are stable. Her abdomen soft. Incision site is clean dry and intact. Status post exploratory laparotomy with lysis of adhesion for internal hernia causing small bowel obstruction. Patient will have her diet advanced. 3 discharge home tomorrow.
[2018-12-06] MEDS: LACTATED RINGERS 1,000 ML IV SCH (19:28)
[2018-12-07] MEDS: SODIUM CHLORIDE 0.9% 1,000 ML IV SCH ×2 (00:02→12:34)
[2018-12-07] MEDS: ONDANSETRON 4 MG/2 ML VIAL IVP SCH ×2 (06:10→13:09)
[2018-12-07] MEDS: SIMETHICONE 40 MG/0.6 ML DROPS 2,000 MG/30 ML BOTTLE PO SCH ×2 (06:13→13:10)
[2018-12-07 07:40] VITALS: BP 111/73; PULSE 61; RESP 17; TEMP 98.6
[2018-12-07] MEDS: ENOXAPARIN 40 MG/0.4 ML SYRINGE SQ SCH (09:13)
[2018-12-07] MEDS: GABAPENTIN 300 MG CAP PO SCH (09:14)
[2018-12-07] MEDS: PANTOPRAZOLE 40 MG/10 ML VIAL IV SCH (09:14)
--- NOTE | 2018-12-07 14:14 | P.DS ---
Providers Date of admission: 12/01/18 13:46 Expected date of discharge: 12/07/18 Attending physician: Komal Ceballos Primary care physician: Antoine Morales - Discharge Diagnosis(es) (1) Small bowel obstruction Current Visit: Yes Status: Acute Hospital Course: 43-year-old female who was admitted to the hospital secondary to abdominal pain. Patient underwent diagnostic laparoscopy converted to open laparotomy with lysis of adhesions for reduction of small bowel volvulus and internal hernia. Patient did well postoperatively without any immediate complications. She is tolerating diet without nausea or vomiting. Patients pain controlled on oral medications. Vital signs have been stable. She is stable for discharge home today. Please see EMR for further hospital course details. Discharge Diagnosis: 1. Recurrent small bowel obstruction 2. History of gastric bypass 3. History of laparotomy with peritoneal adhesions Nurse practitioner note has been reviewed by physician. Signing provider agrees with the documented findings, assessment, and plan of care. Plan - Discharge Summary New Discharge Prescriptions: New Bisacodyl [Dulcolax] 5 mg PO DAILY PRN #10 tablet. PRN Reason: Constipation Simethicone 40 mg/0.6 ml Drops [Mylicon Drops] 40 mg PO PCHS PRN #30 ml PRN Reason: Gas HYDROcodone/APAP 5-325MG [Malverne 5-325] 1 tab PO Q4HR PRN 3 Days #18 tab PRN Reason: Pain Ondansetron Odt [Zofran Odt] 4 mg PO Q8HR PRN #9 tab PRN Reason: Nausea Discontinued Butalb/APAP/Caff 50-325-40Mg [Fioricet 50-325-40] 1 tab PO Q4H PRN #18 tablet PRN Reason: Headache No Action Ferrous Sulfate [Iron (65 MG Elemental)] 325 mg PO DAILY Albuterol Inhaler [Ventolin Hfa Inhaler] 1 - 2 puff INHALATION RT-Q6H PRN PRN Reason: Shortness Of Breath Multivitamins, Thera [Multivitamin (formulary)] 1 tab PO DAILY Cholecalciferol (Vitamin D3) [Vitamin D3] 2,000 unit PO DAILY Discharge Medication List Ferrous Sulfate [Iron (65 MG Elemental)] 325 mg PO DAILY 06/08/18 [History] Albuterol Inhaler [Ventolin Hfa Inhaler] 1 - 2 puff INHALATION RT-Q6H PRN 08/18/18 [History] Multivitamins, Thera [Multivitamin (formulary)] 1 tab PO DAILY 08/18/18 [History] Cholecalciferol (Vitamin D3) [Vitamin D3] 2,000 unit PO DAILY 11/18/18 [History] Bisacodyl [Dulcolax] 5 mg PO DAILY PRN #10 tablet. 12/04/18 [Rx] HYDROcodone/APAP 5-325MG [Malverne 5-325] 1 tab PO Q4HR PRN 3 Days #18 tab 12/04/18 [Rx] Ondansetron Odt [Zofran Odt] 4 mg PO Q8HR PRN #9 tab 12/04/18 [Rx] Simethicone 40 mg/0.6 ml Drops [Mylicon Drops] 40 mg PO PCHS PRN #30 ml 12/04/18 [Rx] Follow up App[facility]ment(s[facility] [place] [facility] - 12/16/18 2:20 pm Patient Instructions/Handouts: Bowel Obstruction (DC), Abdominal Binder (DC) Activity/Diet/Wound Care/Special Instructions: No lifting over 4 pounds in 4 weeks until 01/04/2019. May shower once wound VAC is discontinued. REMOVE WOUND VAC 12/08/[address] PL[address] OPTIFOAM. No bathtub soaks until 01/04/2019. May use ice on incisions. Discharge Disposition: HOME SELF-CARE
== END 2018-12-07 14:11 | disposition home or self-care (01) | DRG 337 ==
LOC: 4SSUR 13:46
PROVIDERS: ADMIT Surgery Plastic and Reconstructive Surgery; ATTEND Surgery Plastic and Reconstructive Surgery
PROC: 0DNA0ZZ Release Jejunum, Open Approach (ICD-10-PCS; principal; 2018-12-03 11:25)
PROC: 0DN80ZZ Release Small Intestine, Open Approach (ICD-10-PCS; principal; 2018-12-03 11:25)
PROC: 0DNU0ZZ Release Omentum, Open Approach (ICD-10-PCS; principal; 2018-12-03 11:25)
DX: K56.2 Volvulus (principal); K46.9 Unspecified abdominal hernia without obstruction or gangrene; D50.9 Iron deficiency anemia, unspecified; E66.01 Morbid (severe) obesity due to excess calories; E86.0 Dehydration; G47.30 Sleep apnea, unspecified; J45.909 Unspecified asthma, uncomplicated; Z53.31 Laparoscopic surgical procedure converted to open procedure; Z68.33 Body mass index [BMI] 33.0-33.9, adult; Z82.49 Family history of ischemic heart disease and other diseases of the circulatory system; Z83.3 Family history of diabetes mellitus; Z98.84 Bariatric surgery status; Z90.49 Acquired absence of other specified parts of digestive tract; Z98.51 Tubal ligation status; Z88.5 Allergy status to narcotic agent; Z88.0 Allergy status to penicillin
CPT/HCPCS: 80051; 80053; 82150; 82310; 82565; 83690; 83735; 84100; 84520; 84703; 85025; 87070; 87075; 87205; 94760; 94762

== ENCOUNTER → 2018-12-16 | Outpatient (CLI) | payer OTHER ==
[2018-12-16 15:12] VITALS: BP 121/86; PULSE 69; RESP 16; TEMP 97.9; BMI 29.9
--- NOTE | 2018-12-16 15:44 | P.PN ---
Subjective Progress Note Date: 12/16/18 HPI: She comes in feeling better. She reports able to eat anything. She feels great! 336 pounds. Over 18 months. Panniculectomy in 6 months. Nystatin powder low back, chronic skin infections yeast of the skin. Skin is below thighs. Objective - Vital Signs Vital signs: Vital Signs Temp 97.9 F 12/16/18 15:09 Pulse 69 12/16/18 15:09 Resp 16 12/16/18 15:09 BP 121/86 12/16/18 15:09 Pulse Ox Intake & Output 12/15/18 12/16/18 12/16/18 18:59 06:59 18:59 Weight 81.647 kg
== END | disposition home or self-care (01) ==
LOC: BARWHC3 13:45
PROVIDERS: ATTEND Surgery Plastic and Reconstructive Surgery
DX: L08.9 Local infection of the skin and subcutaneous tissue, unspecified (principal); Z98.890 Other specified postprocedural states
CPT/HCPCS: 99211

== ENCOUNTER → 2019-09-30 | Outpatient (CLI) | payer OTHER ==
--- NOTE | 2019-09-30 13:12 | CT ---
EXAMINATION TYPE: CT abdomen pelvis w con DATE OF EXAM: 09/30/2019 COMPARISON: 11/18/2018 HISTORY: 44-year-old female Diverticulitis, abdominal pain over incisional area with bulges from inci andrae TECHNIQUE: Contiguous axial scanning of the abdomen and pelvis following administration of 100 ml Iso alexandro 300 IV contrast. Delayed images through the kidneys and coronal/sagittal reconstructions perform ed. CT DLP: 1528.2 mGycm Automated exposure control for dose reduction was used. FINDINGS: Heart normal size without pericardial effusion. Lung bases clear without pleural effusion. Liver enlarged at 20.3 cm there are no focal lesions seen. Cholecystectomy clips. Portal venous syste m is patent. Adrenal glands, spleen, pancreas appear within normal limits. Redemonstrated right-sided extrarenal pelvis. There is delayed excretion of contrast from the kidneys that may reflect acute kidney injury and should be correlated with patient's kidney function. Postsurgical changes of Beka-en-Y gastric bypass. Post surgical change to the anterior abdominal wall. There is some rectus diastases and anterior bulg ing along the anterior midline. No dilated small bowel, free fluid, or free air. Mild circumferential wall thickening along the ascending colon and proximal half of the transverse co khadra. Generalized diverticular change along the right hemicolon. A few residual prominent left abdominal mesenteric lymph nodes remain measuring up to 6 mm. Minimal r esidual filiberto mesentery in this region, further coronal image 34, significantly improved from 11/19/19 19. Bladder partially distended. Uterus anteverted. Both ovaries are visualized. No abnormal fluid collec tion the pelvis. A number of prominent but not enlarged lymph nodes are unchanged from 11/18/2018. Bones: Mild degenerative disc disease lower thoracic spine. Some facet arthropathy in lower lumbar sp ine. No osseous destructive process. IMPRESSION: 1. RIGHT HEMICOLONIC DIVERTICULOSIS. THERE IS LONG SEGMENT MILD CIRCUMFERENTIAL WALL THICKENING OF TH E ASCENDING COLON AND PROXIMAL TRANSVERSE COLON THAT COULD RELATE TO NONDISTENTION VERSUS A NONSPECIF IC MILD COLITIS. LONG SEGMENT INVOLVEMENT MAKES ACUTE DIVERTICULITIS UNLIKELY. 2. POSTTREATMENT CHANGES OF BEKA-EN-Y GASTRIC BYPASS. 3. SURGICAL CHANGES ALONG THE ANTERIOR ABDOMINAL WALL WITH RECTUS DIASTASES AND ANTERIOR BULGING OF I NTRA-ABDOMINAL CONTENTS. 4. A FEW RESIDUAL PROMINENT LEFT ABDOMINAL MESENTERIC LYMPH NODES MEASURING UP TO 6 MM 6 MM AND MINIM AL RESIDUAL FILIBERTO MESENTERY. FINDINGS HAVE SIGNIFICANTLY IMPROVED FROM 11/18/2018, LIKELY CHRONIC POST INFLAMMATORY SEQUELA.
== END | disposition home or self-care (01) ==
LOC: RADCTMAIN 08:25
PROVIDERS: ATTEND Surgery Plastic and Reconstructive Surgery
DX: K57.30 Diverticulosis of large intestine without perforation or abscess without bleeding (principal); K63.89 Other specified diseases of intestine; R59.0 Localized enlarged lymph nodes; R93.5 Abnormal findings on diagnostic imaging of other abdominal regions, including retroperitoneum; Z88.0 Allergy status to penicillin; Z88.5 Allergy status to narcotic agent; Z98.84 Bariatric surgery status; Z98.890 Other specified postprocedural states
CPT/HCPCS: 74177; Q9967

== ENCOUNTER → 2019-12-13 | Outpatient (CLI) | payer OTHER ==
[2019-12-13 15:28] LABS: HCT 39.7 % (34.0-46.0); HGB 12.9 gm/dL (11.4-16.0); MCH 30.7 pg (25.0-35.0); MCHC 32.5 g/dL (31.0-37.0); MCV 94.3 fL (80.0-100.0); Mean Platelet Volume 9.1; Platelet Count 237 k/uL (150-450); RBC 4.21 m/uL (3.80-5.40); RDW 12.2 % (11.5-15.5); WBC 7.7 k/uL (3.8-10.6)
[2019-12-14 01:30] LABS: Hemoglobin A1C 5.1 % (4.0-6.0)
[2019-12-14 02:47] LABS: African American GFR (CKD) 138.4 (60.0-200.0); Albumin 4.1 g/dL (3.80-4.90); Albumin/Globulin Ratio 1.86 (1.60-3.17); Anion Gap 10.3 mmol/L (4.00-12.00); Calcium 8.5 mg/dL (8.7-10.3); Carbon Dioxide 20.7 mmol/L (21.6-31.8); Chol/HDL Ratio 5.18; Globulin 2.2 g/dL (1.6-3.3); LDL Cholesterol,Calculated 146.6 mg/dL (0.0-131.0); Magnesium 1.8 mg/dL (1.5-2.4); Non-African American GFR(CKD) 119.4 (60.0-200.0); Phosphorus 3.2 mg/dL (2.4-5.1); Potassium 3.8 mmol/L (3.5-5.5); Total Bilirubin 0.6 mg/dL (0.3-1.2); Total Protein 6.3 g/dL (6.2-8.2); VLDL Calculation 16.4 mg/dL (5.00-40.00)
[2019-12-14 03:07] LABS: INR 1.08 (0.90-1.11); Partial Thromboplastin Time 27.4 sec (24.7-29.9); Prothrombin Time 11.5 sec (9.9-11.9)
[2019-12-14 03:19] LABS: Folate, Serum 14.4 ng/mL
[2019-12-14 11:04] LABS: Zinc, Serum 59 ug/dL (60-130)
[2019-12-15 07:28] LABS: Vit B1(Thiamine) 77 ug/L (38-122)
== END | disposition home or self-care (01) ==
LOC: LABWHC1 14:20
PROVIDERS: ATTEND Surgery Plastic and Reconstructive Surgery
DX: E21.1 Secondary hyperparathyroidism, not elsewhere classified (principal); E89.1 Postprocedural hypoinsulinemia; D50.8 Other iron deficiency anemias; K90.89 Other intestinal malabsorption; E55.9 Vitamin D deficiency, unspecified; K74.1 Hepatic sclerosis; N19 Unspecified kidney failure; K50.90 Crohn's disease, unspecified, without complications; E66.01 Morbid (severe) obesity due to excess calories
CPT/HCPCS: 36415; 80053; 80061; 82306; 82525; 82607; 82746; 83036; 83735; 83970; 84100; 84134; 84255; 84425; 84443; 84590; 84630; 85027; 85610; 85730

== ENCOUNTER 2019-12-20 08:05 | Inpatient (IN) | payer OTHER ==
--- NOTE | 2019-12-19 22:49 | P.GSHP ---
History of Present Illness H&P Date: 12/20/19 CHIEF COMPLAINT: Incisional hernia. HISTORY OF PRESENT ILLNESS: The patient is a 44-year-old female who presents with a history of swelling along the upper abdomen. Findings were consistent with possible incisional hernia. Now she presents for further evaluation and management. PAST MEDICAL HISTORY: Please see list. PAST SURGICAL HISTORY: Please see list. MEDICATIONS: Please see list. ALLERGIES: Please see list. SOCIAL HISTORY: No illicit drug use FAMILY HISTORY: No reports of Crohn disease or ulcerative colitis. REVIEW OF ORGAN SYSTEMS: CONSTITUTIONAL: No reports of fevers or chills. GI: Denies any blood in stools or constipation. PHYSICAL EXAM: VITAL SIGNS: Stable GENERAL: Well-developed pleasant female in no acute distress. HEENT: No scleral icterus. Extraocular movements grossly intact. Moist buccal mucosa. NECK: Supple without lymphadenopathy. CHEST: Unlabored respirations. Equal bilateral excursions. CARDIOVASCULAR: Regular rate and rhythm. Distal 2+ pulses. ABDOMEN: Soft, nondistended. Tender along the upper abdomen. Protuberant. MUSCULOSKELETAL: No clubbing, cyanosis, or edema. ASSESSMENT: 1. Incisional ventral hernia. 2. Morbid obesity, BMI 35.5 PLAN: 1. Recommend proceeding with robotic ventral hernia repair with mesh. 2. Benefits and risks of surgical intervention was discussed including possibility of open technique. 3. DVT prophylaxis. 4. Antibiotic prophylaxis. Past Medical History Past Medical History: Asthma, Sleep Apnea/CPAP/BIPAP Additional Past Medical History / Comment(s): abdominal hernia,Uses C-Pap-no longer needing since wt loss, Poly Cystic Ovarian Syndrome, Migraine Headaches 4-5x/week, H-Pylori Positive per EGD specimen, Post op fluid collection (seroma) gastric bypass,DEHYDRATION, bowel obstruction History of Any Multi-Drug Resistant Organisms: None Reported Past Surgical History: Appendectomy, Bariatric Surgery, Bowel Resection, Section, Cholecystectomy, Hernia Repair, Orthopedic Surgery, Tubal Ligation Additional Past Surgical History / Comment(s): x3: 1999, 2002, 2009; Bilateral Carpal Tunnel 2013; gastric bypass sx 05-26-17 (Dr. Ceballos), small bowel obstruction and hernia repair, umbilical hernia repair Past Anesthesia/Blood Transfusion Reactions: No Reported Reaction Additional Past Anesthesia/Blood Transfusion Reaction / Comment(s): no hx blood transfusion Smoking Status: Never smoker - Past Family History Father Family Medical History: Congestive Heart Failure (CHF), Coronary Artery Disease (CAD), Diabetes Mellitus Additional Family Medical History / Comment(s): at age 66 from heart failure Mother Family Medical History: Coronary Artery Disease (CAD), Diabetes Mellitus, Vascular Disorder Additional Family Medical History / Comment(s): Type II DM, Medications and Allergies Home Medications Medication Instructions Recorded Confirmed Type Albuterol Inhaler (Mhu) [Ventolin 1 - 2 puff INHALATION RT-Q6H PRN 08/18/18 12/16/19 History Hfa Inhaler (Mhu)] Multivitamins, Thera [Multivitamin 1 tab PO DAILY 08/18/18 12/16/19 History (formulary)] Allergies Allergy/AdvReac Type Severity Reaction Status Date / Time hydromorphone [From Dilaudid] Allergy Swelling Verified 12/16/19 15:59 Penicillins Allergy Unknown Verified 12/16/19 15:59 Childhood
[~2019-12-20 08:05] MED LIST changes: -LACTATED RINGERS 1,000 ML IV SCH; +LIDOCAINE 1% (10MG/ML) FOR IV START INTRADERMA PRN; +ONDANSETRON 4 MG/2 ML VIAL IVP ONE; +SCOPOLAMINE 1.5MG/72HR PATCH TRANSDERM ONE
[2019-12-20] MEDS: LACTATED RINGERS 1,000 ML IV SCH ×2 (09:21→10:55)
[2019-12-20] MEDS: ACETAMINOPHEN TAB 500 MG TAB PO STA ×2 (09:24→16:45)
[2019-12-20] MEDS: TAMSULOSIN 0.4 MG CAP.ER.24H PO ONE ×2 (09:25→16:47)
[2019-12-20] MEDS: GABAPENTIN 300 MG CAP PO STA ×2 (09:25→16:46)
[2019-12-20] MEDS: SCOPOLAMINE 1.5MG/72HR PATCH TRANSDERM STA ×2 (09:25→16:46)
[2019-12-20] MEDS ORDERED: MIDAZOLAM 2 MG/2 ML VIAL IVP ONE (09:32)
[2019-12-20] MEDS: DEXAMETHASONE SOD PHOSPHATE 4 MG/ML 1 ML VIAL IV ONE ×2 (09:43→16:46)
[2019-12-20] MEDS ORDERED: HEPARIN SODIUM,PORCINE 5,000 UNIT/ML 1 ML VIAL ONE (09:49)
[2019-12-20] MEDS: HEPARIN SODIUM,PORCINE 5,000 UNIT/ML 1 ML VIAL SQ ONE ×2 (09:51→16:45)
--- NOTE | 2019-12-20 09:53 | P.ANPRN ---
Procedure Note - Anesthesia - Nerve Block Performed Bilateral Transversus Abdominis Single Time Out Performed: Yes Date of Procedure: 12/20/19 Procedure Start Time: : Procedure Stop Time: : Location of Patient: PreOp Indication: Acute Post-Operative Pain, Requested by Surgeon Specifically requested for management of pain by DrPayal: Komal Ceballos Sedation Type: Sedate with meaningful contact maintained Preparation: Sterile Prep Position: Supine Needle Types: Pajunk Needle Gauge: 20, 21 Ultrasound used to visualize needle placement: Yes Ultrasound used to observe medication spread: Yes Injectate: 0.5% Ropivacaine (see comment for volume) (30 ml plus decadron 4 mg) Blood Aspirated: No Pain Paresthesia on Injection Noted: No Resistance on Injection: Normal Image Stored and Saved: Yes Events: Uneventful and Well Tolerated
[2019-12-20] MEDS ORDERED: ROPIVACAINE 5 MG/ML 30 ML VIAL ONE (10:50)
[2019-12-20] MEDS ORDERED: PHENYLEPHRINE-0.9% NACL SYG 1 MG/10 ML SYRINGE ONE (10:50)
[2019-12-20] MEDS ORDERED: .MORPHINE SULFATE (INJ) 10 MG/ML SYRINGE ONE (10:50)
[2019-12-20] MEDS ORDERED: ROCURONIUM 10 MG/ML (10 ML VIAL) IV ONE (10:50)
[2019-12-20] MEDS ORDERED: GLYCOPYRROLATE 0.2 MG/ML 2 ML VIAL ONE (10:50)
[2019-12-20] MEDS ORDERED: DEXAMETHASONE SOD PHOSPHATE 4 MG/ML 1 ML VIAL ONE (10:50)
[2019-12-20] MEDS ORDERED: PROPOFOL 10 MG/ML 20 ML VIAL IV ONE (10:50)
[2019-12-20] MEDS ORDERED: NEOSTIGMINE 1 MG/ML 10 ML VIAL ONE (10:50)
[2019-12-20] MEDS ORDERED: fentaNYL (PF) 50 MCG/ML 2 ML AMP ONE (10:50)
[2019-12-20] MEDS ORDERED: SUCCINYLCHOLINE CHLORIDE 100 MG/5 ML SYR IV ONE (10:50)
[2019-12-20] MEDS ORDERED: diphenhydrAMINE 50 MG/ML 1 ML VIAL ONE (10:50)
[2019-12-20] MEDS ORDERED: MIDAZOLAM 2 MG/2 ML VIAL ONE (10:50)
[2019-12-20] MEDS ORDERED: LIDOCAINE 1% INJ 10MG/ML (20 ML MDV) ONE (10:50)
[2019-12-20] MEDS ORDERED: DEXAMETHASONE SOD PHOSPHATE 10 MG/ML 1 ML VIAL ONE (10:50)
[2019-12-20] MEDS ORDERED: LACTATED RINGERS 1,000 ML IV ONE ×2 (11:36→13:56)
[2019-12-20] MEDS ORDERED: LIDOCAINE 1%-EPI 1:100,000 20 ML VIAL SQ ONE (11:58)
[2019-12-20] MEDS: fentaNYL (PF) 50 MCG/ML 2 ML AMP IV PRN ×3 (14:04→15:11)
[2019-12-20] MEDS ORDERED: KETOROLAC 15 MG/ML 1 ML VIAL IVP ONE (14:45)
[2019-12-20] MEDS ORDERED: NALOXONE 0.4 MG/ML 1 ML VIAL IV PRN ×2 (14:55→14:58)
[2019-12-20] MEDS ORDERED: ALBUTEROL NEBULIZED 2.5 MG/3 ML INHALATION PRN (14:57)
--- NOTE | 2019-12-20 15:02 | P.OP ---
Date of Procedure: 12/20/19 Description of Procedure: SURGEON: ASHVIN MAYBERRY MD PREOPERATIVE DIAGNOSES: 1. Initial reducible midline incisional hernia 2. History of multiple abdominal surgeries 3. History of gastric bypass 4. Morbid obesity due to excess calories, BMI 36.2 POSTOPERATIVE DIAGNOSES: 1. Initial reducible midline incisional hernia, 17 x 20 cm 2. History of multiple abdominal surgeries 3. History of gastric bypass 4. Morbid obesity due to excess calories, BMI 36.2 5. Large upper lower midline incisional hernia with loss of domain 6. Greater omentum to abdominal wall adhesions OPERATION: 1. Robotic-assisted da Melinda Xi laparoscopic lysis of adhesions 2. Open initial reducible reducible incisional ventral hernia repair with 15 x [address] mesh 3. Bilateral myocutaneous flap advancement for ventral hernia repair Anesthesia: GETA, regional, local Estimated Blood Loss (ml): 100 Pathology: other (Hernia sac and contents) Condition: stable Disposition: floor COMPLICATIONS: None. Operative Findings: 1. Loss of domain with large ventral hernia over 17 x 20 cm requiring open technique and bilateral myocutaneous advancement flap for closure of defect using mesh with onlay INDICATIONS: The patient is a 44-year-old male who presents with a personal history of multiple surgeries and presented with symptomatic incisional hernia. She has history of gastric bypass. Surgical intervention with laparoscopic versus robotic and open techniques were reviewed. Placement of mesh was also reviewed. Benefits and risks were thoroughly described. Informed consent was obtained. DESCRIPTION OF PROCEDURE: The patient was brought into the operating room and laid in supine position. After general induction, the abdomen had been prepped and draped in standard sterile fashion. Ioban draping was also placed. Prior to incision, a timeout protocol was confirmed with surgical team regarding the patient's name including procedures to be performed. The robot was primed prior to the procedure. A field block using local anesthetic was placed along proposed port sites. Initial incision was made with an #11 blade along the left upper quadrant. A 0 degree 5 mm laparoscopic trocar entry was performed and insufflated. Diagnostic laparoscopy demonstrated greater omental adhesions to abdominal wall. Three 8 mm ports were placed along the right lateral abdominal wall under direct localization. Placements of the ports were 15 cm from the target anatomy and 10 cm apart. An accessory 12 mm port was exchanged to remove the 5-mm port that was placed at the left upper quadrant for placment of mesh including sutures. The da Melinda Xi robot was previously primed, prepped and draped then docked from the right side of the patient onto the left side of the patient. I then sat at the robot Da Melinda Xi console where working arms of the robot including Bovie cautery connected to robotic scissors, needle local company refrigerated truck driver, and graspers placed by the career services assistant. Initial attention was brought to the peritoneal adhesions along the abdominal wall and addressed using scissors including vessel sealer to inspect the fascial plane. Two large fascial defects were identified of the upper abdomen including lower abdomen. The muscle plane was moderately retracted with features of loss of domain. The fascial defect was measured of 17 x 20 cm. With this finding, an open incisional hernia repair is proposed to address domain. An endoscopic imaging was obtained. The da Melinda Xi robot was undocked from the patient. I re-scrubbed into the case. Using the pneumoperitoneum, a midline incision using #10 blade was made along her previous cicatrix into the abdominal cavity. All robotic instruments were removed. Bilateral myocutaneous flap advancement were performed to close the large defect of 17 x 20 cm using the rectus muscle. Using Bovie cautery, the rectus myocutaneous skin flap was prepared and advance to the lateral abdominal edge achieving over 8 cm overlap of the midline defect initially along the left followed by the right normal wall. Hemostasis was checked using a LigaSure device. The redundant hernia sac including tissue were excised using Bovie cautery and passed off as specimen. Flaps were extended to the xiphoid including lower abdomen above the pubis. The peritoneal cavity and abdomen was closed using two double-stranded 0 PDS complete closure of the abdominal wall. Hemostasis was once again checked with electro-Bovie cautery. An onlay ventral light ST mesh was placed along the closed down the wall due to the subcutaneous tissue. The rough side was placed towards the abdominal wall. The mesh was quilted to the abdominal wall using #1 VLOC nonabsorbable. A round # 19 MAIA drain was exited via the left lower quadrant and tacked to the skin using 2-0 nylon. A bulb was placed after closing the incision. The trocar incisions were reapproximated using 4-0 Monocryl in an interrupted subcuticular fashion. Liquid glue was applied to the skin after cleansing the skin with normal saline and dilute hydrogen peroxide. The incision was closed in layers using 0 Vicryl for the deep subcutaneous tissue followed by running 3-0 Monocryl for the deep dermis. Exofin tape followed by antibiotic Optifoam sponge dressing was placed over the incision. At the end of the procedure, the needle, sponge and instrument count was verified correct. An abdominal binder was placed. At the end of the procedure, needle, sponge, and instrument count had been verified correct by surgical resident. The patient was taken to the postanesthesia care unit in stable condition.
[2019-12-20] MEDS ORDERED: HYDROmorphone 0.5 MG/0.5 ML SYRINGE IVP ONE (15:11)
[2019-12-20] MEDS ORDERED: diphenhydrAMINE 50 MG/ML 1 ML VIAL IVP ONE (15:23)
[2019-12-20] MEDS: fentaNYL PCA 500 MCG/50 ML BAG IV PRN (16:37)
[2019-12-20] MEDS: ACETAMINOPHEN TAB 500 MG TAB PO SCH ×2 (17:31→23:25)
[2019-12-20] MEDS: GABAPENTIN 300 MG CAP PO SCH ×2 (17:31→23:25)
[2019-12-20] MEDS: SODIUM CHLORIDE 0.9% 1,000 ML IV SCH (17:32)
[2019-12-20] MEDS: KETOROLAC 15 MG/ML 1 ML VIAL IVP SCH (21:41)
[2019-12-21] MEDS: KETOROLAC 15 MG/ML 1 ML VIAL IVP SCH ×4 (03:23→21:04)
[2019-12-21] MEDS: ACETAMINOPHEN TAB 500 MG TAB PO SCH ×4 (04:59→21:06)
[2019-12-21] MEDS: SODIUM CHLORIDE 0.9% 1,000 ML IV SCH (05:00)
[2019-12-21] MEDS: LACTATED RINGERS 1,000 ML IV SCH (05:35)
[2019-12-21] MEDS ORDERED: SODIUM CHLORIDE 0.9% 1,000 ML IV ONE ×2 (08:55→08:58)
[2019-12-21] MEDS: MULTIVITAMINS, THERA 1 EACH TAB PO SCH (09:20)
[2019-12-21] MEDS: GABAPENTIN 300 MG CAP PO SCH ×3 (09:20→21:06)
[2019-12-21] MEDS: TAMSULOSIN 0.4 MG CAP.ER.24H PO SCH (09:20)
[2019-12-21 09:49] LABS: Basophils % (A) 0 %; Eosinophils # (A) 0.2 k/uL (0-0.7); Eosinophils % (A) 2 %; Lymphocytes # (A) 1.4 k/uL (1.0-4.8); Lymphocytes % (A) 15 %; MCHC 31.5 g/dL (31.0-37.0); MCV 98.4 fL (80.0-100.0); Mean Platelet Volume 9.6; Monocytes # (A) 0.4 k/uL (0-1.0); Monocytes % (A) 4 %; Neutrophils % (A) 77 %; Platelet Count 200 k/uL (150-450); RBC 3.56 m/uL (3.80-5.40); RDW 12.6 % (11.5-15.5)
[2019-12-21 09:56] LABS: African American GFR (CKD) >90 (>60 ml/min/1.73 sqM); Anion Gap 5 mmol/L; Blood Urea Nitrogen 14 mg/dL (7-17); Carbon Dioxide 23 mmol/L (22-30); Chloride 107 mmol/L (98-107); Glucose 88 mg/dL (74-99); Non-African American GFR(CKD) >90 (>60 ml/min/1.73 sqM); Potassium 3.9 mmol/L (3.5-5.1); Sodium 135 mmol/L (137-145)
[2019-12-21] MEDS: fentaNYL PCA 500 MCG/50 ML BAG IV PRN (10:19)
--- NOTE | 2019-12-21 11:44 | P.PN ---
Subjective Progress Note Date: 12/21/19 CHIEF COMPLAINT: Incisional hernia HISTORY OF PRESENT ILLNESS: Patient is postop day #1 status post Robotic- assisted da Melinda Xi laparoscopic lysis of adhesions, Open initial reducible reducible incisional ventral hernia repair and Bilateral myocutaneous flap advancement for ventral hernia repair. This morning patient is complaining that she cannot urinate. She had to be straight cathed around 1 AM and had 400 out. She does report that she is feeling dry and thirsty. She does report abdominal pain. Denies any nausea or vomiting. Denies any flatus or BM. She is afebrile. MAIA drain 70 mL output of serosanguineous fluid. Afebrile. WBC 9.0 Also note the patient Had dilation of the people of her right eye and some blurry vision. Possibly related to the scopolamine patch PHYSICAL EXAM: VITAL SIGNS: Reviewed GENERAL: Well-developed in no acute distress. HEENT: No sclera icterus. Extraocular movements grossly intact. Moist buccal mucosa. Head is atraumatic, normocephalic. Hears conversational speech. No nasal drainage. NECK: Supple without lymphadenopathy. CHEST: Non-labored respirations and equal bilateral excursions. CARDIOVASCULAR: Regular rate with regular rhythm. Palpable 2+ radial pulses. ABDOMEN: Soft. Nondistended. Incision dressing clean dry and intact. MAIA drain in place with serosanguineous fluid. MUSCULOSKELETAL: No clubbing or cyanosis. NEUROLOGIC: No focal or lateralizing signs. Cranial nerves II through XII grossly intact. PSYCH: Appropriate affect. Alert and oriented to person, place and time. SKIN: Well perfused. Good skin turgor. ASSESSMENT: 1. Initial reducible midline incisional hernia Status post Robotic-assisted da Melinda Xi laparoscopic lysis of adhesions, Open initial reducible reducible incisional ventral hernia repair and Bilateral myocutaneous flap advancement for ventral hernia repair. 2. History of multiple abdominal surgeries 3. History of gastric bypass 4. Morbid obesity due to excess calories, BMI 36.2 5. Large upper lower midline incisional hernia with loss of domain 6. Greater omentum to abdominal wall adhesions 7. Urinary retention PLAN: -Patient will be given L IV fluid bolus and increase IV fluids 125 mL per hour For dehydration -Urinary retention BladderScan patient and also start Flomax 0.4 mg daily -Scopolamine patch discontinued Physician General Merchandise Salesperson note has been reviewed by physician. Signing provider agrees with the documented findings, assessment, and plan of care. Objective - Vital Signs Vital signs: Vital Signs Temp 97.9 F 12/21/19 08:40 Pulse 56 L 12/21/19 08:40 Resp 16 12/21/19 08:40 BP 94/62 12/21/19 08:40 Pulse Ox 98 12/21/19 08:40 Intake & Output 12/20/19 12/21/19 12/21/19 18:59 06:59 18:59 Intake Total 2550 1200 Output Total 520 38 Balance 2550 680 -38 Weight 85.5 kg Intake: IV 2550 Intake, IV Titration 1000 Amount Sodium Chloride 0.9% 1, 1000 000 ml @ 75 mls/hr IV . [id number] NICOLETTE Rx#:[id number] Oral 200 Output: Drainage 70 38 Abdomen 70 38 Urine 450 Other: # Voids 0 - Labs CBC & Chem 7: 12/21/19 09:15 12/21/19 09:15 Labs: Abnormal Lab Results - Last 24 Hours (Table) 12/21/19 12/21/19 Range/Units 09:15 09:15 RBC 3.56 L (3.80-5.40) m/uL Hgb 11.0 L (11.4-16.0) gm/dL Sodium 135 L (137-145) mmol/L Calcium 8.0 L (8.4-10.2) mg/dL
[2019-12-22] MEDS: KETOROLAC 15 MG/ML 1 ML VIAL IVP SCH ×3 (02:44→15:40)
[2019-12-22] MEDS: ACETAMINOPHEN TAB 500 MG TAB PO SCH ×4 (02:46→20:48)
[2019-12-22] MEDS: SODIUM CHLORIDE 0.9% 1,000 ML IV SCH ×5 (02:49→23:00)
[2019-12-22] MEDS: fentaNYL PCA 500 MCG/50 ML BAG IV PRN (06:36)
[2019-12-22] MEDS: GABAPENTIN 300 MG CAP PO SCH ×3 (08:34→22:08)
[2019-12-22] MEDS: MULTIVITAMINS, THERA 1 EACH TAB PO SCH (08:34)
[2019-12-22] MEDS: TAMSULOSIN 0.4 MG CAP.ER.24H PO SCH (08:35)
[2019-12-22] MEDS: SIMETHICONE 40 MG/0.6 ML DROPS 2,000 MG/30 ML BOTTLE PO SCH ×3 (13:22→20:51)
[2019-12-22] MEDS ORDERED: MAGNESIUM HYDROXIDE 2,400 MG/10 ML CUP PO ONE (13:28)
[2019-12-22] MEDS: DOCUSATE 100 MG CAP PO SCH ×2 (14:19→20:51)
--- NOTE | 2019-12-22 15:13 | P.PN ---
Subjective Progress Note Date: 12/22/19 CHIEF COMPLAINT: Incisional hernia HISTORY OF PRESENT ILLNESS: Patient is postop day #2 status post Robotic- assisted da Melinda Xi laparoscopic lysis of adhesions, Open initial reducible reducible incisional ventral hernia repair and Bilateral myocutaneous flap advancement for ventral hernia repair. Patient reports that she is able to urinate better today. She is passing gas. She is complaining of abdominal pain and fullness. Abdominal binder was opened and patient had improvement in some of her pain. She denies any bowel movement. She's afebrile. WBC 9.0 she is only eating a small amount of her regular tray. MAIA drain had 60 mL output through the night PHYSICAL EXAM: VITAL SIGNS: Reviewed GENERAL: Well-developed in no acute distress. HEENT: No sclera icterus. Extraocular movements grossly intact. Moist buccal mucosa. Head is atraumatic, normocephalic. Hears conversational speech. No nasal drainage. NECK: Supple without lymphadenopathy. CHEST: Non-labored respirations and equal bilateral excursions. CARDIOVASCULAR: Regular rate with regular rhythm. Palpable 2+ radial pulses. ABDOMEN: Soft. Nondistended. Incision dressing clean dry and intact. MAIA drain in place with serosanguineous fluid. MUSCULOSKELETAL: No clubbing or cyanosis. NEUROLOGIC: No focal or lateralizing signs. Cranial nerves II through XII grossly intact. PSYCH: Appropriate affect. Alert and oriented to person, place and time. SKIN: Well perfused. Good skin turgor. ASSESSMENT: 1. Initial reducible midline incisional hernia Status post Robotic-assisted da Melinda Xi laparoscopic lysis of adhesions, Open initial reducible reducible incisional ventral hernia repair and Bilateral myocutaneous flap advancement for ventral hernia repair. 2. History of multiple abdominal surgeries 3. History of gastric bypass 4. Morbid obesity due to excess calories, BMI 36.2 5. Large upper lower midline incisional hernia with loss of domain 6. Greater omentum to abdominal wall adhesions 7. Urinary retention 8. Dehydration improved with IV fluids PLAN: -Continue regular diet -Add bariatric protein drinks -Patient able to keep abdominal binder off and to use only as needed for comfort -Give milk of magnesia and Colace to help stimulate bowel movement -Discontinue MERCHANDISE CLERK pump -Add Tylenol #3 one every 6 hours as needed for pain Physician Field Crew Chief note has been reviewed by physician. Signing provider agrees with the documented findings, assessment, and plan of care. Objective - Vital Signs Vital signs: Vital Signs Temp 98.1 F 12/22/19 12:18 Pulse 62 12/22/19 12:18 Resp 16 12/22/19 12:18 BP 99/61 12/22/19 12:18 Pulse Ox 98 12/22/19 12:18 Intake & Output 12/21/19 12/22/19 12/22/19 18:59 06:59 18:59 Intake Total 40 Output Total 466 613 35 Balance -466 -573 -35 Intake: Oral 40 Output: Drainage 66 63 35 Abdomen 66 63 35 Urine 400 550 Uretheral (Mcdermott) 200 Other: Voiding Method Toilet Toilet # Voids 1 1 - Labs CBC & Chem 7: 12/21/19 09:15 12/21/19 09:15
[2019-12-22] MEDS: Acetaminophen-Codeine 300-30mg TAB PO PRN ×2 (15:29→20:50)
[2019-12-22] MEDS: tiZANidine 4 MG TAB PO SCH (22:52)
[2019-12-22] MEDS: oxyCODONE-APAP 5-325MG 1 EACH TAB PO PRN (22:52)
[2019-12-23] MEDS: oxyCODONE-APAP 5-325MG 1 EACH TAB PO PRN ×3 (04:36→14:49)
[2019-12-23] MEDS: MULTIVITAMINS, THERA 1 EACH TAB PO SCH (10:16)
[2019-12-23] MEDS: DOCUSATE 100 MG CAP PO SCH ×2 (10:16→21:13)
[2019-12-23] MEDS: GABAPENTIN 300 MG CAP PO SCH ×3 (10:16→21:13)
[2019-12-23] MEDS: tiZANidine 4 MG TAB PO SCH ×3 (10:16→21:14)
[2019-12-23] MEDS: SIMETHICONE 40 MG/0.6 ML DROPS 2,000 MG/30 ML BOTTLE PO SCH ×4 (10:17→21:14)
[2019-12-23] MEDS: TAMSULOSIN 0.4 MG CAP.ER.24H PO SCH (10:17)
--- NOTE | 2019-12-23 13:46 | P.PN ---
<Janiya Kelly - Last Filed: 12/23/19 13:43> Subjective Progress Note Date: 12/23/19 CHIEF COMPLAINT: Incisional hernia HISTORY OF PRESENT ILLNESS: Patient is postop day #3 status post Robotic- assisted da Melinda Xi laparoscopic lysis of adhesions, Open initial reducible reducible incisional ventral hernia repair and Bilateral myocutaneous flap advancement for ventral hernia repair. Patient's pain medications were adjusted yesterday. She does have abdominal pain and it is controlled with pain medications. She is passing gas. No bowel movement yet. Denies any nausea or vomiting. She was able to eat a little more today. She is drinking her protein drinks. She denies any difficulty urinating. She's on a regular diet. She's afebrile. PHYSICAL EXAM: VITAL SIGNS: Reviewed GENERAL: Well-developed in no acute distress. HEENT: No sclera icterus. Extraocular movements grossly intact. Moist buccal mucosa. Head is atraumatic, normocephalic. Hears conversational speech. No nasal drainage. NECK: Supple without lymphadenopathy. CHEST: Non-labored respirations and equal bilateral excursions. CARDIOVASCULAR: Regular rate with regular rhythm. Palpable 2+ radial pulses. ABDOMEN: Soft. Nondistended. Incision dressing clean dry and intact. MAIA drain in place with serosanguineous fluid. MUSCULOSKELETAL: No clubbing or cyanosis. NEUROLOGIC: No focal or lateralizing signs. Cranial nerves II through XII grossly intact. PSYCH: Appropriate affect. Alert and oriented to person, place and time. SKIN: Well perfused. Good skin turgor. ASSESSMENT: 1. Initial reducible midline incisional hernia Status post Robotic-assisted da Melinda Xi laparoscopic lysis of adhesions, Open initial reducible reducible incisional ventral hernia repair and Bilateral myocutaneous flap advancement for ventral hernia repair. 2. History of multiple abdominal surgeries 3. History of gastric bypass 4. Morbid obesity due to excess calories, BMI 36.2 5. Large upper lower midline incisional hernia with loss of domain 6. Greater omentum to abdominal wall adhesions 7. Urinary retention 8. Dehydration improved with IV fluids PLAN: -Continue regular diet -Continue bariatric protein drinks -Patient able to keep abdominal binder off and to use only as needed for comfort -Continue current pain medications -Continue simethicone drops -Encouraged patient to increase activity and ambulate -Encourage incentive spirometer use Physician Material Requirements Planning Manager note has been reviewed by physician. Signing provider agrees with the documented findings, assessment, and plan of care. Objective - Vital Signs Vital signs: Vital Signs Temp 99.0 F 12/23/19 13:23 Pulse 65 12/23/19 13:23 Resp 16 12/23/19 13:23 BP 88/51 12/23/19 13:23 Pulse Ox 100 12/23/19 13:23 Intake & Output 12/22/19 12/23/19 12/23/19 18:59 06:59 18:59 Output Total 1110 940 650 Balance -7747 -264 -892 Output: Drainage 85 90 50 Abdomen 85 90 50 Urine 1025 850 600 Other: Voiding Method Toilet Toilet # Voids 1 1 - Labs CBC & Chem 7: 12/21/19 09:15 12/21/19 09:15 <Komal Ceballos - Last Filed: 12/23/19 18:56> Subjective i Objective - Vital Signs Vital signs: Vital Signs Temp 99.0 F 12/23/19 13:23 Pulse 73 12/23/19 14:48 Resp 18 12/23/19 14:48 BP 98/72 12/23/19 14:48 Pulse Ox 100 12/23/19 13:23 Intake & Output 12/22/19 12/23/19 12/23/19 18:59 06:59 18:59 Intake Total 60 Output Total 1110 940 367 Balance -2596 -450 -766 Intake: Oral 60 Output: Drainage 85 90 80 Abdomen 85 90 80 Urine 1025 850 700 Other: Voiding Method Toilet Toilet # Voids 1 1 - Labs CBC & Chem 7: 12/21/19 09:15 12/21/19 09:15
[2019-12-23] MEDS ORDERED: LACTULOSE 20 GM/30 ML CUP PO ONE (18:53)
[2019-12-23] MEDS ORDERED: MAGNESIUM HYDROXIDE 2,400 MG/10 ML CUP PO STA (18:53)
[2019-12-24] MEDS: oxyCODONE-APAP 5-325MG 1 EACH TAB PO PRN ×3 (01:02→12:28)
[2019-12-24] MEDS: SIMETHICONE 40 MG/0.6 ML DROPS 2,000 MG/30 ML BOTTLE PO SCH (09:52)
[2019-12-24] MEDS: tiZANidine 4 MG TAB PO SCH (09:54)
[2019-12-24] MEDS: TAMSULOSIN 0.4 MG CAP.ER.24H PO SCH (09:54)
[2019-12-24] MEDS: GABAPENTIN 300 MG CAP PO SCH (09:54)
[2019-12-24] MEDS: DOCUSATE 100 MG CAP PO SCH (09:54)
[2019-12-24] MEDS: MULTIVITAMINS, THERA 1 EACH TAB PO SCH (09:55)
--- NOTE | 2019-12-24 11:14 | P.DS ---
Providers Date of admission: 12/22/19 09:26 Expected date of discharge: 12/24/19 Attending physician: Komal Ceballos Consults: 12/20/19 06:15 Consult Physician Routine Consulting Provider: [facility] Consult Reason/Comments: Abdominal wall block Do you want consulting provider notified?: Yes Primary care physician: [facility] Course: Discharge diagnosis 1. Initial reducible midline incisional hernia Status post Robotic-assisted da Melinda Xi laparoscopic lysis of adhesions, exploratory laparotomy with open initial reducible reducible incisional ventral hernia repair and Bilateral myocutaneous flap advancement for ventral hernia repair. 2. History of multiple abdominal surgeries 3. History of gastric bypass 4. Morbid obesity due to excess calories, BMI 36.2 5. Large upper lower midline incisional hernia with loss of domain 6. Greater omentum to abdominal wall adhesions 7. Urinary retention 8. Dehydration improved with IV fluids Hospital course The patient is a 44-year-old female who presents with a history of swelling along the upper abdomen. Findings were consistent with possible incisional hernia. Patient is status post Robotic-assisted da Melinda Xi laparoscopic lysis of adhesions Exploratory laparotomy with open initial reducible incisional ventral hernia repair with 15 x [address] mesh and Bilateral myocutaneous flap advancement for ventral hernia repair. Patient tolerated surgery well. Her pain is controlled. She is tolerating diet. She has been up and ambulating. She is having bowel movements. She is afebrile. Please refer to chart for any further details. Physician Truck Driver Teamster note has been reviewed by physician. Signing provider agrees with the documented findings, assessment, and plan of care. Patient Condition at Discharge: Stable Plan - Discharge Summary Discharge Rx Participant: Yes New Discharge Prescriptions: New Docusate [Colace] 100 mg PO BID #30 cap Gabapentin [Neurontin] 300 mg PO TID PRN #9 cap PRN Reason: Pain oxyCODONE-APAP 5-325MG [Percocet 5-325 mg] 1 each PO Q4HR PRN #18 tab PRN Reason: Pain tiZANidine [Zanaflex] 4 mg PO TID PRN #9 tab PRN Reason: Muscle Spasm Continue Albuterol Inhaler (Mhu) [Ventolin Hfa Inhaler (Mhu)] 1 - 2 puff INHALATION RT-Q6H PRN PRN Reason: Shortness Of Breath Multivitamins, Thera [Multivitamin (formulary)] 1 tab PO DAILY Discharge Medication List Albuterol Inhaler (Mhu) [Ventolin Hfa Inhaler (Mhu)] 1 - 2 puff INHALATION RT- Q6H PRN 08/18/18 [History] Multivitamins, Thera [Multivitamin (formulary)] 1 tab PO DAILY 08/18/18 [History] Docusate [Colace] 100 mg PO BID #30 cap 12/24/19 [Rx] Gabapentin [Neurontin] 300 mg PO TID PRN #9 cap 12/24/19 [Rx] oxyCODONE-APAP 5-325MG [Percocet 5-325 mg] 1 each PO Q4HR PRN #18 tab 12/24/19 [Rx] tiZANidine [Zanaflex] 4 mg PO TID PRN #9 tab 12/24/19 [Rx] Follow up Appointment(s)/Referral(s): Komal Ceballos MD [STAFF PHYSICIAN] - 12/28/19 Activity/Diet/Wound Care/Special Instructions: Wear abdominal binder at all times for comfort. No lifting over 4 pounds in 4 weeks until Jan 16. No bath tub soaks for two weeks until Jan 02 No showering while MAIA drain is in place Keep a log of MAIA drain output and bring with you to your follow-up appointment Milk/strip drains 2-3 times a day Diet regular Discharge Disposition: HOME SELF-CARE
[2019-12-24 12:16] VITALS: BP 90/65; PULSE 69; RESP 16; TEMP 98
[2019-12-24 12:52] VITALS: BMI 36.1
== END 2019-12-24 12:50 | disposition home or self-care (01) | DRG 909 ==
LOC: OR 08:05 → 6PED 14:07 → OR 12-21 12:45 → OBSVTOIN 12-22 09:26
PROVIDERS: ADMIT Surgery Plastic and Reconstructive Surgery; ATTEND Surgery Plastic and Reconstructive Surgery
PROC: 0KXK0Z6 Transfer Right Abdomen Muscle, Transverse Rectus Abdominis Myocutaneous Flap, Open Approach (ICD-10-PCS; principal; 2019-12-20 10:10)
PROC: 0DNW4ZZ Release Peritoneum, Percutaneous Endoscopic Approach (ICD-10-PCS; principal; 2019-12-20 10:10)
PROC: 8E0W0CZ Robotic Assisted Procedure of Trunk Region, Open Approach (ICD-10-PCS; principal; 2019-12-20 10:10)
PROC: 0KXL0Z6 Transfer Left Abdomen Muscle, Transverse Rectus Abdominis Myocutaneous Flap, Open Approach (ICD-10-PCS; principal; 2019-12-20 10:10)
PROC: 0WJF4ZZ Inspection of Abdominal Wall, Percutaneous Endoscopic Approach (ICD-10-PCS; principal; 2019-12-20 10:10)
PROC: 0WUF0JZ Supplement Abdominal Wall with Synthetic Substitute, Open Approach (ICD-10-PCS; principal; 2019-12-20 10:10)
DX: T88.59XA Other complications of anesthesia, initial encounter (principal); R33.0 Drug induced retention of urine; E28.2 Polycystic ovarian syndrome; E66.01 Morbid (severe) obesity due to excess calories; E86.0 Dehydration; K43.2 Incisional hernia without obstruction or gangrene; K66.0 Peritoneal adhesions (postprocedural) (postinfection); J45.909 Unspecified asthma, uncomplicated; G47.30 Sleep apnea, unspecified; Z68.36 Body mass index [BMI] 36.0-36.9, adult; Z98.84 Bariatric surgery status; Z86.69 Personal history of other diseases of the nervous system and sense organs; Z90.49 Acquired absence of other specified parts of digestive tract; Z87.19 Personal history of other diseases of the digestive system; Z87.39 Personal history of other diseases of the musculoskeletal system and connective tissue; Z98.51 Tubal ligation status; Z98.890 Other specified postprocedural states; Z88.5 Allergy status to narcotic agent; Z88.0 Allergy status to penicillin; Z98.891 History of uterine scar from previous surgery; T41.0X5A Adverse effect of inhaled anesthetics, initial encounter; Y83.8 Other surgical procedures as the cause of abnormal reaction of the patient, or of later complication, without mention of misadventure at the time of the procedure; Y92.230 Patient room in hospital as the place of occurrence of the external cause; Z82.49 Family history of ischemic heart disease and other diseases of the circulatory system; Z83.3 Family history of diabetes mellitus
CPT/HCPCS: 64488; 80048; 81025; 85025; 88302

== ENCOUNTER → 2019-12-29 | Outpatient (CLI) | payer OTHER ==
[2019-12-29 13:42] VITALS: BP 114/79; PULSE 80; RESP 16; TEMP 97.9; BMI 31.2
--- NOTE | 2019-12-29 14:18 | P.PN ---
Subjective Progress Note Date: 12/29/19 DATE OF SERVICE: 12/29/2019 CHIEF COMPLAINT: Follow up gastric bypass HISTORY OF PRESENT ILLNESS: Sofia Harrington is a 23-year-old female who is status post gastric bypass for 05/26/2017. She is 2 years out. She is status post abdominal wall reconstruction, 12/22/2019. She has lost more weight since surgery. She thinks she has a yeast infection. Her highest weight was 336 pounds. At height of 5 feet 0.5 inches, her ideal body weight is 127 pounds. She comes in 188 pounds from 180 pounds,1 year ago. She has gained 8 pounds in 1 year. Lifetime weight loss is 148 pounds. Percent excess weight loss is 71 %. Body mass index is down from 64.3 to 36.1 PHYSICAL EXAM: VITAL SIGNS: Height 5 foot 0.5 inches, weight 188 pounds. BMI 36.1 Vital Signs Temp 97.9 F 12/29/19 13:39 Pulse 80 12/29/19 13:39 Resp 16 12/29/19 13:39 BP 114/79 12/29/19 13:39 Pulse Ox GENERAL: Well-developed in no acute distress. HEENT: No scleral icterus. Extraocular movements grossly intact. Hears conversational speech. No nasal drainage. NECK: Supple without lymphadenopathy. CHEST: Nonlabored respirations with equal bilateral excursions. CARDIOVASCULAR: Regular rate and regular rhythm. Distal 2+ pulses. ABDOMEN: Obese, soft. MAIA is serous. Moderate sized pannus, grade 4 panniculus. Midline incision granulated. She has at least 10 pounds of skin of the pannus. Removed external dressing. MUSCULOSKELETAL: No clubbing, cyanosis. NEURO: No focal or lateralizing signs. Cranial nerves 2 through 12 grossly within normal limits. PSYCH: Appropriate affect. Alert and oriented to person, place and time. SKIN: Good skin turgor. Well perfused. ASSESSMENT: 1. Morbid obesity due to excess 2. Body mass index of 58.5 to 34.6 3. Osteoarthritis of the knees. 4. Osteoarthritis of the hips. 5. Osteoarthritis of the lower back. 6. Obstructive sleep apnea. 7. Hypertensive heart disease, resolved. 8. Asthma. 9. Migraines. 10. Hypercholesterolemia. 11. Vitamin D deficiency. 12. Iron deficiency anemia 13. Hypercholesterolemia 14. Dyslipidemia 15. Prediabetes 16. Metabolic syndrome 17. Status post gastric bypass 18. Panniculitis 19. History of small bowel obstruction PLAN: 1. Diflucan prescribed 2. Recommend panniculectomy for symptomatic panniculitis Objective - Vital Signs Vital signs: Vital Signs Temp 97.9 F 12/29/19 13:39 Pulse 80 12/29/19 13:39 Resp 16 12/29/19 13:39 BP 114/79 12/29/19 13:39 Pulse Ox Intake & Output 12/28/19 12/29/19 12/29/19 18:59 06:59 18:59 Weight 85.275 kg
== END | disposition home or self-care (01) ==
LOC: BARWHC3 13:22
PROVIDERS: ATTEND Surgery Plastic and Reconstructive Surgery
DX: Z48.815 Encounter for surgical aftercare following surgery on the digestive system (principal); E66.01 Morbid (severe) obesity due to excess calories; M17.0 Bilateral primary osteoarthritis of knee; M16.0 Bilateral primary osteoarthritis of hip; G47.33 Obstructive sleep apnea (adult) (pediatric); J45.909 Unspecified asthma, uncomplicated; G43.909 Migraine, unspecified, not intractable, without status migrainosus; E78.00 Pure hypercholesterolemia, unspecified; E55.9 Vitamin D deficiency, unspecified; D50.9 Iron deficiency anemia, unspecified; E78.5 Hyperlipidemia, unspecified; E88.81 Metabolic syndrome and other insulin resistance; Z98.84 Bariatric surgery status; M79.3 Panniculitis, unspecified; Z68.34 Body mass index [BMI] 34.0-34.9, adult; Z87.19 Personal history of other diseases of the digestive system
CPT/HCPCS: 99211

== ENCOUNTER → 2020-01-19 | Outpatient (CLI) | payer OTHER ==
[2020-01-19 13:28] VITALS: BP 132/92; PULSE 88; RESP 18; TEMP 98.3
--- NOTE | 2020-01-19 13:55 | P.PN ---
Subjective Progress Note Date: 01/19/20 DATE OF SERVICE: 01/19/2020 CHIEF COMPLAINT: Incisional hernia HISTORY OF PRESENT ILLNESS: Sofia Harrington is a 44-year-old female who is status post gastric bypass for 05/26/2017. She is 2 years out. She is status post abdominal wall reconstruction, 12/22/2019. She is 1 month out. She comes in with persistent drainage for her MAIA drain. She does not have her binder today. She reports eating 80 grams of protein. She has lost 5 pounds since her last visit. She feels tired. Her highest weight was 336 pounds. At height of 5 feet 0.5 inches, her ideal body weight is 127 pounds. She comes in 188 pounds from 180 pounds,1 year ago. She has gained 8 pounds in 1 year. Lifetime weight loss is 148 pounds. Percent excess weight loss is 71 %. Body mass index is down from 64.3 to 36.1 PHYSICAL EXAM: VITAL SIGNS: Height 5 foot 0.5 inches, weight 183 pounds. BMI 35.2 Vital Signs Temp 98.3 F 01/19/20 13:09 Pulse 88 01/19/20 13:09 Resp 18 01/19/20 13:09 BP 132/92 01/19/20 13:09 Pulse Ox GENERAL: Well-developed in no acute distress. HEENT: No scleral icterus. Extraocular movements grossly intact. Hears conversational speech. No nasal drainage. NECK: Supple without lymphadenopathy. CHEST: Nonlabored respirations with equal bilateral excursions. CARDIOVASCULAR: Regular rate and regular rhythm. Distal 2+ pulses. ABDOMEN: Obese, soft. Moderate sized pannus, grade 4 panniculus. Incision granulated. MAIA is serous. Abdomen hernia without recurrence. Indentation at skin. MUSCULOSKELETAL: No clubbing, cyanosis. NEURO: No focal or lateralizing signs. Cranial nerves 2 through 12 grossly within normal limits. PSYCH: Appropriate affect. Alert and oriented to person, place and time. SKIN: Good skin turgor. Well perfused. ASSESSMENT: 1. Morbid obesity due to excess 2. Body mass index of 58.5 to 35.2 3. Osteoarthritis of the knees. 4. Osteoarthritis of the hips. 5. Osteoarthritis of the lower back. 6. Obstructive sleep apnea. 7. Hypertensive heart disease, resolved. 8. Asthma. 9. Migraines. 10. Hypercholesterolemia. 11. Vitamin D deficiency. 12. Iron deficiency anemia 13. Hypercholesterolemia 14. Dyslipidemia 15. Prediabetes 16. Metabolic syndrome 17. Status post gastric bypass 18. Panniculitis 19. History of small bowel obstruction PLAN: 1. Removal of drain pending. 2. Recommend multivitamin 3. Also recommend evaluation for panniculectomy 4. Recommend supplements for Vit A, D, Zinc and iron panel 5. Recommend check sodium for retained water 6. Recommend labs. Objective - Vital Signs Vital signs: Vital Signs Temp 98.3 F 01/19/20 13:09 Pulse 88 01/19/20 13:09 Resp 18 01/19/20 13:09 BP 132/92 01/19/20 13:09 Pulse Ox Intake & Output 01/18/20 01/19/20 01/19/20 18:59 06:59 18:59 Weight 83.007 kg
[2020-01-20 01:28] LABS: % Iron Saturation 19.72 (12.00-45.00)
[2020-01-20 01:36] LABS: Ferritin 119.3 ng/mL (10.0-291.0)
== END | disposition home or self-care (01) ==
LOC: BARWHC3 12:47
PROVIDERS: ATTEND Surgery Plastic and Reconstructive Surgery
DX: E66.01 Morbid (severe) obesity due to excess calories (principal); M17.0 Bilateral primary osteoarthritis of knee; M16.0 Bilateral primary osteoarthritis of hip; M47.9 Spondylosis, unspecified; G47.33 Obstructive sleep apnea (adult) (pediatric); J45.909 Unspecified asthma, uncomplicated; G43.909 Migraine, unspecified, not intractable, without status migrainosus; E66.9 Obesity, unspecified; E78.00 Pure hypercholesterolemia, unspecified; E55.9 Vitamin D deficiency, unspecified; D50.9 Iron deficiency anemia, unspecified; E78.5 Hyperlipidemia, unspecified; E88.81 Metabolic syndrome and other insulin resistance; M79.3 Panniculitis, unspecified; Z68.35 Body mass index [BMI] 35.0-35.9, adult; Z98.84 Bariatric surgery status; Z87.19 Personal history of other diseases of the digestive system
CPT/HCPCS: 82728; 83540; 83550; G0463; 99211

== ENCOUNTER → 2020-02-02 | Outpatient (CLI) | payer OTHER ==
[2020-02-02 13:53] VITALS: BP 108/74; PULSE 73; RESP 18; TEMP 97.8; BMI 31.0
--- NOTE | 2020-02-02 14:17 | P.PN ---
Subjective Progress Note Date: 02/02/20 DATE OF SERVICE: 02/02/2020 CHIEF COMPLAINT: Incisional hernia HISTORY OF PRESENT ILLNESS: Sofia Harrington is a 44-year-old female who is status post gastric bypass for 05/26/2017. She is 2 years out. She is status post abdominal wall reconstruction, 12/22/2019. She is 6 weeks out. She can eat regular foods for which she is happy about. Her iron is better. She had asthma attack with steroids and now with weight gain. She has pain with lifting over 8 pounds for gallon of milk. She has chronic cough and had pain. Her highest weight was 336 pounds. At height of 5 feet 0.5 inches, her ideal body weight is 127 pounds. She comes in 186 pounds from 183 pounds, 2 weeks ago. She has gained 3 pounds in 2 weeks. Lifetime weight loss is 150 pounds. Percent excess weight loss is 72 %. Body mass index is down from 64.3 to 35.8 PHYSICAL EXAM: VITAL SIGNS: Height 5 foot 0.5 inches, weight 186 pounds. BMI 35.8 Vital Signs Temp 97.8 F 02/02/20 13:43 Pulse 73 02/02/20 13:43 Resp 18 02/02/20 13:43 BP 108/74 02/02/20 13:43 Pulse Ox GENERAL: Well-developed in no acute distress. HEENT: No scleral icterus. Extraocular movements grossly intact. Hears conversational speech. No nasal drainage. NECK: Supple without lymphadenopathy. CHEST: Nonlabored respirations with equal bilateral excursions. CARDIOVASCULAR: Regular rate and regular rhythm. Distal 2+ pulses. ABDOMEN: Obese, soft. Grade 4 panniculus. MAIA removed. No recurrent hernia. MUSCULOSKELETAL: No clubbing, cyanosis. NEURO: No focal or lateralizing signs. Cranial nerves 2 through 12 grossly within normal limits. PSYCH: Appropriate affect. Alert and oriented to person, place and time. SKIN: Good skin turgor. Well perfused. ASSESSMENT: 1. Morbid obesity due to excess 2. Body mass index of 58.5 to 35.8 3. Osteoarthritis of the knees. 4. Osteoarthritis of the hips. 5. Osteoarthritis of the lower back. 6. Obstructive sleep apnea. 7. Hypertensive heart disease, resolved. 8. Asthma. 9. Migraines. 10. Hypercholesterolemia. 11. Vitamin D deficiency. 12. Iron deficiency anemia 13. Hypercholesterolemia 14. Dyslipidemia 15. Prediabetes 16. Metabolic syndrome 17. Status post gastric bypass 18. Panniculitis 19. History of small bowel obstruction PLAN: 1. Her MAIA is putting out 20mL daily. MAIA has been removed. 2. Recommend panniculectomy Objective - Vital Signs Vital signs: Vital Signs Temp 97.8 F 02/02/20 13:43 Pulse 73 02/02/20 13:43 Resp 18 02/02/20 13:43 BP 108/74 02/02/20 13:43 Pulse Ox Intake & Output 02/01/20 02/02/20 02/02/20 18:59 06:59 18:59 Weight 84.595 kg
== END | disposition home or self-care (01) ==
LOC: BARWHC3 13:14
PROVIDERS: ATTEND Surgery Plastic and Reconstructive Surgery
DX: E66.01 Morbid (severe) obesity due to excess calories (principal); M17.0 Bilateral primary osteoarthritis of knee; M16.0 Bilateral primary osteoarthritis of hip; M47.9 Spondylosis, unspecified; G47.33 Obstructive sleep apnea (adult) (pediatric); J45.909 Unspecified asthma, uncomplicated; G43.909 Migraine, unspecified, not intractable, without status migrainosus; E55.9 Vitamin D deficiency, unspecified; D50.9 Iron deficiency anemia, unspecified; E78.00 Pure hypercholesterolemia, unspecified; E78.5 Hyperlipidemia, unspecified; E88.81 Metabolic syndrome and other insulin resistance; M79.3 Panniculitis, unspecified; Z68.35 Body mass index [BMI] 35.0-35.9, adult; Z87.19 Personal history of other diseases of the digestive system; Z98.84 Bariatric surgery status
CPT/HCPCS: 99212